=== PATIENT | female | born 1945 | race Caucasian/White ===

== ENCOUNTER 2017-02-22 20:07 | Emergency (ER) | payer MEDICARE, MEDICAID ==
[~2017-02-22] VITALS: Ht 160 cm; Wt 75.0 kg
[~2017-02-22 20:07] MED LIST: ARIP30TA PO; BENZ100C8 PO; CEPH-512 PO; CEPH500C PO; CITA20TA11 PO; CLOT15CR66 TD; DOXY100T2 PO; ERYT1OIN7 BOTH_EYES; FAMO20TA4 PO; FERR324T5 PO; FURO-128 PO; GABA-502 PO; HYDR-3797 PO; HYDR-4003 PO; METO25TA99 PO; MUPI22OI2 NASAL; NYST15PO3 TRANSDERM; OXYC1TAB24 PO; POTA20TA7 PO; ZOLP5TAB6 PO
[2017-02-22 20:39] VITALS: BP 154/83; PULSE 69; RESP 17; O2SAT 97
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
[2017-02-22] MEDS ORDERED: Triamcinolone 0.1% 30 Gm Cream TOPICAL ONE (23:45)
[2017-02-22] MEDS ORDERED: Triamcinolone 0.1% 30 Gm Cream TOPICAL SCH (23:45)
[2017-02-23 01:07] VITALS: BP 150/80; PULSE 70; RESP 16; O2SAT 98
[2017-02-23] MEDS ORDERED: Triamcinolone 0.1% 30 Gm Cream TOPICAL SCH (08:30)
== END 2017-02-23 01:08 | disposition home or self-care (01) ==
LOC: SED 20:07
DX: L28.0 Lichen simplex chronicus (principal); I11.0 Hypertensive heart disease with heart failure; E78.5 Hyperlipidemia, unspecified; F31.9 Bipolar disorder, unspecified; Z88.2 Allergy status to sulfonamides; Z88.5 Allergy status to narcotic agent; Z88.8 Allergy status to other drugs, medicaments and biological substances

== ENCOUNTER 2017-03-01 14:41 | Inpatient (IN) | payer MEDICARE, MEDICAID, OTHER ==
[~2017-03-01] VITALS: Ht 160 cm; Wt 71.5 kg
[2017-03-01 15:05] VITALS: BP 176/84; PULSE 86; RESP 20; O2SAT 97
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
[2017-03-01 15:51] LABS: BASOPHILS % (AUTO) 0.5 % (0-3); EOSINOPHILS % (AUTO) 2.8 % (0-5); MONOCYTES % (AUTO) 10.2 % (4-12); Mean Corpuscular Hemoglobin 31.3 pg (27.0-35.0); Mean Corpuscular Volume 97.4 fL (81-100); NEUTROPHILS % (AUTO) 66.4 % (40-74); Platelet Count 220 bil/L (150-400)
[2017-03-01 18:50] VITALS: BP 162/92; PULSE 84; RESP 15; O2SAT 96
[2017-03-01 20:40] LABS: APPEARANCE,URINE CLEAR (CLEAR,HAZY); COLOR,URINE YELLOW (YELLOW); OCCULT BLOOD,URINE NEGATIVE (NEGATIVE); UROBILINOGEN,URINE NORMAL (NORMAL)
[2017-03-02 02:57] VITALS: BP 180/81; PULSE 65; RESP 20; O2SAT 98
[2017-03-02 06:17] VITALS: BP 142/68; PULSE 62; RESP 16; O2SAT 98
[2017-03-02] MEDS ORDERED: KEN1C EXT (14:50)
--- NOTE | 2017-03-02 15:00 | NUR ---
Admission Admit completed. information completed to the best of patient's recollection. Med Rec completed, from pharmacy list and patient's recollection. Caleb Putnam in [place] confirmed recent Rx's of triamcinolone, citalopram, and Famotidine. Cephalexin 500mg QID filled on 02/17 for 7 day coarse. last Abilify filled was 02/2016 20mg tab to take 10mg BID, ferrous gluconate filled 11/2015, Ambien last filled 02/2016, and lisinopril 10mg last filled 02/2016. patient denies taking Abilify, lisinopril, and Ambien.
[2017-03-02] MEDS: Mupirocin 2% 22 Gm Ointment NASAL SCH (20:30)
[2017-03-02] MEDS ORDERED: NYSTATIN TRANSDERM SCH (20:30)
[2017-03-02] MEDS: hydrOXYzine Pamoate 25 mg Capsule PO PRN (21:07)
[2017-03-02] MEDS: Nystatin 100,000 Unit/Gm 15 Gm Powder TOPICAL SCH (21:08)
[2017-03-02] MEDS: Triamcinolone 0.1% 30 Gm Cream TOPICAL SCH (21:09)
--- NOTE | 2017-03-02 22:36 | NUR ---
NURS Note [id number] S "I have fleas in my blood. I didn't get them from my cats. I got them in senior living. I have a hundred and fifty cats and feed them oats and salmon." O Thought process, tangential and fleeting. Thought content, delusional and bizarre. Insight, poor. Pt has several small sores on legs, arms, torso, neck and face and reports that they are from fleas. Pt admits to picking at sores. Pt's lower legs are red and warm to touch. Currently being treated with clotrimazole, triamcinolone, and mupirocin ointments. Staff has requested that pt shower several times and pt refuses. Pt states that she prefers to bath in the sink. Pt has been requesting maday sandoval -- staff has declined request because of the bear's unhygienic conditions. A Pt is pleasant but requires direction and encouragement to engage in appropriate self care. P Continue with treatment plan. Encourage showering.
[2017-03-03] MEDS: oxyCODONE-Acetamin 5-325 mg Tablet PO PRN ×2 (00:15→09:21)
--- NOTE | 2017-03-03 05:39 | NUR ---
nursing, nights, 11-7 s- can i have some tylenol ? i'm yesy albarado's mother. o- has appeared to sleep after 2215. used the call light at midnight. received percocet at 0015. appeared to sleep after 0045. assessed q 15 minutes. a- no apparent distress. p- monitor behavior/emotional state, quality, times and amount of sleep, use and effect of medication. marbella
[2017-03-03] MEDS: Potassium Chloride 20 mEq SR Tablet PO SCH (08:51)
[2017-03-03] MEDS: Triamcinolone 0.1% 30 Gm Cream TOPICAL SCH ×2 (08:52→22:06)
[2017-03-03] MEDS: MeTOProlol XL 25 mg ER24 Tablet PO SCH ×2 (08:54→09:00)
[2017-03-03] MEDS: Nystatin 100,000 Unit/Gm 15 Gm Powder TOPICAL SCH ×2 (08:58→22:06)
[2017-03-03] MEDS: Mupirocin 2% 22 Gm Ointment NASAL SCH ×3 (09:20→20:30)
[2017-03-03 12:00] VITALS: BP 139/72; PULSE 79; RESP 15
--- NOTE | 2017-03-03 14:42 | HP ---
[address] [address] HISTORY AND PHYSICAL PATIENT: TOM DUENAS : 1945 MR#: [id number] ADMIT: 03/02/2017 JOB ID: [id number] IDENTIFICATION: The patient is a 71-year-old single white female, currently living alone and independently. 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 She states that she has over 100 cats in her neighborhood that she cares for. She moved from [place] at age [age] to [place] and has been in the [facility] for 24 years. REASON FOR ADMISSION: Please recall a welfare check. Client appeared disheveled, labile, tangential and gravely disabled. They brought her into the emergency department for evaluation and treatment. HISTORY OF PRESENT ILLNESS: Client presents today for evaluation and treatment of psychosis. I met with her for a 60 minute evaluation and reviewed course and records kept by [facility] as well as reviewed the case with the ED staff and Care Center staff. Client's main issue at this time is untreated psychosis. The condition is chronic and has been present for decades. At present it is of a moderate severity manifesting with symptoms of insomnia, severe distractibility, auditory hallucinations, talking to auditory hallucinations and paranoia. She is tending to have a lot of grandiose delusions as well believing that she will soon be an service unit operator oil well. I was unable to identify any specific stressors, although client did state that she has not been taking her medications or takes them only as she perceives she needs. She had been on Abilify, Celexa and gabapentin. Additionally, the client has congestive heart failure with chronic lower extremity edema. She has a difficult time getting around and this as well appears to be contributing to some of her difficulty with thought processing. PSYCHIATRIC REVIEW OF SYSTEMS: Was negative for depression, trauma or substance abuse. PHYSICAL REVIEW OF SYSTEMS: Constitution: Client feels tired. Cardiac: Client has lower extremity edema from congestive heart failure. Client denied respiratory, GI or genitourinary symptom complaints. MEDICATIONS: Client has not been on any medications but in the past has been on Abilify at 10 daily, Celexa 20 daily, and gabapentin 300 b.i.d. ALLERGIES: NICOTINE, SULFA, CODEINE. ILLNESSES: 1. Congestive heart failure. 2. Lower extremity edema. 3. Peripheral neuropathy. 4. Client has a history of respiratory failure requiring intubation in May of 2014. FAMILY MEDICAL HISTORY: Noncontributory. PAST PSYCHIATRIC HISTORY: Client denies any psychiatric problems or mental illness despite being on an antipsychotic or mood stabilizer and an antidepressant. She states she had been with her same doctor, Dr. Bernabe, in [place]. He had worked for [employer], now works for [employer]. She stated she has no known him for over four decades and that he knows her well. PSYCHOSOCIAL HISTORY: Client born in [place]. She reported her mother was frequently overwhelmed and she had to take care of the children but otherwise denies trauma. She has a 9th grade education and a year of cosmetology school. DRUG AND ALCOHOL USE: Client denies. LETHALITY: Client denies suicidal or homicidal ideation or previous attempts. RELATIONSHIP: for 23 years. Has three sons. . One of her sons lives on her property. GNOSTICISM: Client loves Yann and goes to a [employer] conf[employer]ianism. LEGAL HISTORY: Unknown. Client had an odd tail of being in [facility] for 28 days but cannot describe why. PHYSICAL EXAMINATION: Vital signs normal. I reviewed the H and P done in the ED and was essentially baseline for this patient. LABORATORIES: CBC, liver function, electrolytes normal. Thyroid normal. UA normal. MENTAL STATUS EXAMINATION: Client disheveled but with good eye contact. She appears frail and thin. Behavior was restless and energetic. Attitude was very positive and happy. Speech normal rate and rhythm. Mood euphoric. Affect congruent. High intensity. Thought process: Client has a difficult time relating a coherent history. She did not appear to be responding to internal stimuli. Her thought process was most significant for distractibility. Thought content significant for grandiose and paranoid delusions, but denies auditory hallucinations or suicidal ideation. Alert and oriented to person, place and date. Memory markedly impaired. Attention and concentration markedly impaired. Insight and judgment poor. Impulse control highly contained but has a difficult time handling impulses of anger. Reality testing is impaired. Competence to handle current stressors is currently being overwhelmed. IMPRESSION: The patient is a 71-year-old white female, who has been treated it sounds like for bipolar mood disorder and psychosis for several decades by a primary care physician, that she has felt very comfortable with. She has been medication noncompliant and has not taking any medication for several months. For the past six weeks, she reports poor sleep, and family and friends are noticing increasing distractibility and a decreased ability to take care of herself. When police arrived, they noted her apartment was extremely in disarray and that client was delusional, labile and tangential in her speech. DIAGNOSIS: AXIS I Psychosis unspecified. AXIS II Defer. AXIS III 1. Congestive heart failure. 2. Peripheral neuropathy. 3. Lower extremity edema. 4. History of respiratory failure with intubation May 2014. AXIS IV Unknown. AXIS V 35. PLAN: 1. Recommend client be admitted to our unit to be provided with high degree of safety through the structure and active adult engagement she receives here. 2. Will have her participate in one-to-one unit and group activities focused on improving reality based thinking as well as helping her come up with a safety plan and a medication management plan. 3. We will restart client on medications, gabapentin 300 twice a day, Celexa 20 daily, and Abilify 10 daily. 4. Will also restart metoprolol at 25 mg daily. 5. Client is on a 72 hour involuntary treatment hold. She will have time to talk to her work order sorting clerk in the morning and we will go to court tomorrow. 6. Anticipate 5-7 day stay.
[2017-03-03] MEDS: ARIPiprazole 10 mg Tablet PO SCH (14:49)
--- NOTE | 2017-03-03 15:19 | NUR ---
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 ...lived in [facility]...That's the way we do it at [facility]...rabbit steele.. we didn't wrap our presents. Obama made i so I couldn't see my son...The police came and got me from my home...my own home of 24 years... senior care...Want my clothes... want my maday bear. O: Pt appearance: Hair dyed blonde, pink streaks, bright lipstick applied with lots of smudges. Right hand fingers are red (lipstick?). Wearing slippers that look 2-3 sized too large. Behavior: Eating large amounts. Busy about the unit. non-stop pressured speech to whomever she can interact with , peers or staff. Conversation: Tangential. loose association. Disorganized. Meds: REfused Scheduled metoprolol. "Don't need it" A: Paranoid. Delusional. Anxious. Grandiose. Hypomanic. P: Continue to assess for need for prn and scheduled medication.
--- NOTE | 2017-03-03 17:58 | NUR ---
Environmental Management Specialist/Counselor: S: "Live and let live." O: Patient slept 7 hours last night as per staff. She denies S/I and H/I. She denies auditory and visual hallucinations. Depression is 0/10 and anxiety is 0/10. A: Patient is cooperative, pleasant, eutyhmic, limited insight, limited judgment. P: Follow the care plan, coordinate with out-patient providers. Addendum: 03/03/17 at 1803 by [facility] The above entry is not for this patient. S/O: Patient slept 8 hours last night per staff. She denies S/I and H/I. She also denies auditory and visual hallucinations. A: Patient is cooperative, restless, euphoric, distractible, grandiose, paranoid, delusional, poor insight, poor judgment. P: Follow care plan, coordinate out-patient providers.
--- NOTE | 2017-03-03 18:13 | NUR ---
[facility] Day Shift Pt maintained behavioral control throughout the shift. Pt affect appears bright, manic. Pt spends most of the shift resting in her room or interacting with peers in the dining room. Pt is pleasant and appropriate with staff and peers when active on the unit. Pt speech and thought content appear tangential, occasionally nonsensical. Pt observed using various unit amenities as "makeup." Pt did not attend community meeting or unit group activities throughout the shift. Pt attended all meals and ate approx 70% of all meals.
--- NOTE | 2017-03-03 23:21 | NUR ---
NURSING NOTE [id number] Mood: "nice" Affect: disorganized, delusional Behavior: at start of shift pt. was extremely unkempt and disheveled, showed this freelance writer and nursing home manager her makeup which was made of crystal light powder that she had smeared on her lips and in her hair and fingernails. Pt. was initially resistant to showering and insisted she keeps herself bathed regularly in the sink but eventually agreed to allow this freelance writer and nursing home manager to assist her in the shower. Pt. has been picking at various scabs all over her body and believes she has fleas, however, upon close inspection no bugs were noted. She continues to pick at her sores throughout the shift, insisting bugs are crawling out of the holes. Thought processes: delusional, disorganized, paranoid that she has bugs living inside of her and that a local supervisor coal handling is persecuting her and that a man in a convertible car has been stealing her underwear. Denies AH/VH/SI/HI.
[2017-03-04] MEDS: oxyCODONE-Acetamin 5-325 mg Tablet PO PRN ×2 (04:05→21:18)
--- NOTE | 2017-03-04 04:47 | NUR ---
nursing, nights, 11-7 s- i didn't make it. i need some new blankets. my legs hurt. where is my bear ? thank you. o- has appeared to sleep 2300-midnight, [id number]. received a percocet at 0400. is currently lying quietly in bed. assessed q 15 minutes. a- interrupted sleep, incontinent, uses call light for assistance, no apparent distress. p- monitor behavior/emotional state, quality, times and amount of sleep, use and effect of medication. marbella
[2017-03-04] MEDS: Triamcinolone 0.1% 30 Gm Cream TOPICAL SCH ×2 (08:17→21:15)
[2017-03-04] MEDS: Nystatin 100,000 Unit/Gm 15 Gm Powder TOPICAL SCH ×2 (08:19→21:13)
[2017-03-04] MEDS: MeTOProlol XL 25 mg ER24 Tablet PO SCH (08:20)
[2017-03-04] MEDS: Potassium Chloride 20 mEq SR Tablet PO SCH (08:20)
[2017-03-04] MEDS: ARIPiprazole 10 mg Tablet PO SCH (08:20)
[2017-03-04] MEDS: Mupirocin 2% 22 Gm Ointment NASAL SCH ×3 (08:28→20:30)
[2017-03-04 10:11] VITALS: BP 140/69; PULSE 67; RESP 18
--- NOTE | 2017-03-04 11:22 | NUR ---
Nursing Day Shift S: "No anxiety at all. I'm cool as a cucumber!" O: Patient denies anxiety, depression, harmful thoughts, and hallucinations. Smiling much of the time. Talkative on approach. Eating well at meals. Believes "I get a new heart every 20 years." Social with peers. A: Bright affect. Cooperative. P: CPOC. Monitor mood and behavior.
--- NOTE | 2017-03-04 13:59 | PCM.PNPSY ---
Subjective Date of Service March 04, 2017 Subjective I spent 30 minutes both reviewing treatment plan with clinical team, interviewing the patient and providing supportive/educational psychotherapy. I spent more than 50% of the time counseling the patient. I reviewed the treatment plan with the patient and discussed options available including the potential risks, benefits and side effects. Jaci reports that she has no trouble with thought organization or mood stability. She would like to go home today but was court ordered for an additional 4 days. Staff reports that she has been active and participating well in one-to-one unit and group activities. She slept 3 hours and although pleasant and cooperative is also quite delusional with both paranoid and grandiose delusions. Staff reports that she is hoarding food in her home. She has very poor judgment and insight. Her home was condemned and she believes that it is fine.. She denies medication side effects. Patient was able to identify her medications and what they were used to treat. Current Medications Current Medications Aripiprazole 10 mg DAILY PO Last administered on 03/04/17 08:20; Admin Dose 10 MG; Start 03/03/17 at 14:00 Citalopram Hydrobromide 20 mg DAILY PO Last administered on 03/04/17 08:20; Admin Dose 20 MG; Start 03/03/17 at 08:30 Clotrimazole 1 applic BID TOPICAL Last administered on 03/04/17 08:17; Admin Dose 1 APPLIC; Start 03/02/17 at 20:30 Famotidine 20 mg DAILY PRN PO Last administered on 03/03/17 09:21; Admin Dose 20 MG; Start 03/02/17 at 15:50 Ferrous Gluconate 324 mg BID PO Last administered on 03/04/17 08:20; Admin Dose 324 MG; Start 03/02/17 at 20:30 Gabapentin 300 mg BID PO Last administered on 03/04/17 08:20; Admin Dose 300 MG ; Start 03/02/17 at 20:30 Hydroxyzine Pamoate 25 mg Q6H PRN PO Last administered on 03/02/17 21:07; Admin Dose 25 MG; Start 03/02/17 at 15:50 Metoprolol Succinate 25 mg DAILY PO Last administered on 03/04/17 08:20; Admin Dose 25 MG; Start 03/03/17 at 08:30 Mupirocin 1 applic TID NASAL Last administered on 03/03/17 20:30; Admin Dose 1 APPLIC; Start 03/02/17 at 20:30 Nystatin 1 applic BID TOPICAL Last administered on 03/04/17 08:19; Admin Dose 1 APPLIC; Start 03/02/17 at 20:30 Oxycodone/ Acetaminophen 1 tab Q6H PRN PO Last administered on 03/04/17 04:05 ; Admin Dose 1 TAB; Start 03/02/17 at 15:50 Potassium Chloride 20 meq DAILY PO Last administered on 03/04/17 08:20; Admin Dose 20 MEQ; Start 03/03/17 at 08:30 Triamcinolone Acetonide 1 applic BID TOPICAL Last administered on 03/04/17 08: 17; Admin Dose 1 APPLIC; Start 03/02/17 at 20:30 Mental Status Exam Vital Signs Vital Signs Date Time Temp Pulse Resp B/P Pulse Ox O2 Delivery O2 Flow Rate FiO2 03/04/17 10:11 36.2 67 18 140/69 Appearance: Disheveled Attitude: Pleasant, Cooperative Behavior: Distractible Affect: Well Modulated/Appropriate Mood: Euphoric Thought Process/Associations: Tangential Speech Production: Abundant Speech Rate: Normal Speech Articulation: Normal Thought Content: Yazidism preoccupation, Obsessions/compulsions, Perseveration Danger to Self/Suicidal Ideati: None Danger to Others: None Delusions: Paranoid (Endorses), Grandiose Consciousness: Alert Orientation: Person, Place, Date, Situation Memory: Grossly Intact Estimate Intellectual Function: Average Basis for IQ estimate: Awareness current events Attention/Concentration & Cogn: Impaired Cognitive Testing Method: Abstract Reasoning during interview, Proverb interpretation, Serial computations, Spelling forward & backward Insight: Limited Judgement: Limited Result Diagram: 03/01/17 1539 03/01/17 1539 Mental Health Plan The patient is a 71-year-old white female, who has been treated it sounds like for bipolar mood disorder and psychosis for several decades by a primary care physician, that she has felt very comfortable with. She has been medication noncompliant and has not taking any medication for several months. For the past six weeks, she reports poor sleep, and family and friends are noticing increasing distractibility and a decreased ability to take care of herself. When police arrived, they noted her apartment was extremely in disarray and that client was delusional, labile and tangential in her speech. Today she is bright and pleasant but continues to have delusional thought with both paranoid and grandiose delusions. Staff reports that she is hoarding food in her home. She has very poor judgment and insight. Her home was condemned and she believes that it is fine.. [place] AXIS I Psychosis unspecified. AXIS II Defer. AXIS III 1. Congestive heart failure. 2. Peripheral neuropathy. 3. Lower extremity edema. 4. History of respiratory failure with intubation May 2014. AXIS IV Unknown. AXIS V 35. Treatments Patient is being provided with a high degree of safety through the structure and active adult engagement. We will focus on developing improved coping skills and identifying stressors that may have led to current episode. We will attempt to: Integrate into therapeutic groups, milieu and individual therapy. Maintain in a closely monitored and structured unit Provide low-stimulation environment Obtain collateral data to assist in treatment planning Assess degree of lability of affect and impulse control Complete safety plan Decrease frequency of relapse and need for re-hospitalization Denies thoughts of harm to self and/or others Establish a consistent sleep pattern Medication effective in stabilization of mood and/or thought process Reduce the risk of imminent harm to self and/or others by providing a safe environment Tolerates medication without side effects Patient will be on the following psychiatric medications: gabapentin 300 twice a day, Celexa 20 daily Abilify 10 daily metoprolol 25 mg daily. legal status Patient is on a 72 hour involuntary treatment hold. Postponed until next Tuesday Patient will be given the opportunity to talk to her leach cell operator and the construction project coordinator Disposition: Patient home is condemned. Will need help with housing. Jose Davies MD March 04, 2017 13:59
--- NOTE | 2017-03-04 19:52 | NUR ---
Observations 0900 to 2130 Pt affect and mood was disorganized, scattered, bright and friendly. Pt speech and eye contact was good. Pt attended meals in D.R. and ate approximately 75% of his meals. Pt ate snack. Pt did not attended group or unit activities. Pt was social with staff and select peers. Pt has been pleasant, polite and cooperative. Pt took a nap in the afternoon. Pt was observed every 15 minutes throughout the shift as ordered.
[2017-03-04] MEDS: hydrOXYzine Pamoate 25 mg Capsule PO PRN (21:19)
[2017-03-05] MEDS: oxyCODONE-Acetamin 5-325 mg Tablet PO PRN (02:35)
[2017-03-05] MEDS: hydrOXYzine Pamoate 25 mg Capsule PO PRN (02:35)
--- NOTE | 2017-03-05 05:27 | NUR ---
Pt sitting at table talking with female peers at start of shift. Pt pleasant and supportive of peers. Pt manic with pressured speech and racing thoughts, focused on recounting childhood memories and over inclusive of details. Pt insisting she acquired aphid nits in correction which are biting her back and they are in my blood stream. Assisted pt. with applying triamcinolone cream to her back. No insect bites noted however there are a few small open areas on her back where she had scratched off scabs. Pt lower extremities tight and red, +1 edema. Pt received Percocet 5/325 for pain lower back pain /10 and Vistaril 25 mg for itching. Pt did not get bactroban ointment for nares before she went to sleep as it had not come up from pharmacy. Pt woke up at 0245 requesting a repeat of Percocet and Vistaril. Dozed off in dining room and remained asleep there until 0500 when she woke up for the day.
[2017-03-05] MEDS: Mupirocin 2% 22 Gm Ointment NASAL SCH ×3 (08:30→21:45)
[2017-03-05] MEDS: Nystatin 100,000 Unit/Gm 15 Gm Powder TOPICAL SCH ×2 (08:30→21:44)
[2017-03-05] MEDS: MeTOProlol XL 25 mg ER24 Tablet PO SCH (10:12)
[2017-03-05] MEDS: ARIPiprazole 10 mg Tablet PO SCH (10:12)
[2017-03-05] MEDS: Potassium Chloride 20 mEq SR Tablet PO SCH (10:12)
[2017-03-05 11:28] VITALS: BP 140/62; PULSE 54; RESP 16
[2017-03-05] MEDS: Triamcinolone 0.1% 30 Gm Cream TOPICAL SCH ×2 (11:28→21:44)
--- NOTE | 2017-03-05 12:10 | PCM.PNPSY ---
Subjective Date of Service March 05, 2017 Subjective I spent 30 minutes both reviewing treatment plan with clinical team, interviewing the patient and providing supportive/educational psychotherapy. I spent more than 50% of the time counseling the patient. She spoke about her son who I treated here on the unit, she spoke about him very affectionately. Jaci reports that she has been struggling with afids and fleas. She stated that they are in her bloodstream. She stated every morning she needs to brush her teeth and scrape her tongue because they are full of afids. She would like to go home today but was court was postponed by her district attorney for an additional 4 days. Staff reports that she has been active and participating well in one-to -one unit and group activities. She slept 4 hours and although pleasant and cooperative is also quite delusional with both paranoid and grandiose delusions. Staff reports that she is hoarding food in her home. She has very poor judgment and insight. Her home was condemned and she believes that it is fine.. She denies medication side effects. Patient was able to identify her medications and what they were used to treat. Current Medications Current Medications Aripiprazole 10 mg DAILY PO Last administered on 03/05/17t 10:12; Admin Dose 10 MG; Start 03/03/17 at 14:00 Mental Status Exam Vital Signs Vital Signs Date Time Temp Pulse Resp B/P Pulse Ox O2 Delivery O2 Flow Rate FiO2 03/05/17 11:28 36.5 54 16 140/62 Appearance: Disheveled Attitude: Pleasant, Cooperative Behavior: Distractible Affect: Well Modulated/Appropriate Mood: Euphoric Thought Process/Associations: Tangential Speech Production: Abundant Speech Rate: Normal Speech Articulation: Normal Thought Content: Lutheran preoccupation, Obsessions/compulsions, Perseveration Danger to Self/Suicidal Ideati: None Danger to Others: None Delusions: Paranoid (Endorses), Grandiose Consciousness: Alert Orientation: Person, Place, Date, Situation Memory: Grossly Intact Estimate Intellectual Function: Average Basis for IQ estimate: Awareness current events Attention/Concentration & Cogn: Impaired Cognitive Testing Method: Abstract Reasoning during interview, Proverb interpretation, Serial computations, Spelling forward & backward Insight: Limited Judgement: Limited Result Diagram: 03/01/17 1539 03/01/17 1539 Mental Health Plan The patient is a 71-year-old white female, who has been treated it sounds like for bipolar mood disorder and psychosis for several decades by a primary care physician, that she has felt very comfortable with. She has been medication noncompliant and has not taking any medication for several months. For the past six weeks, she reports poor sleep, and family and friends are noticing increasing distractibility and a decreased ability to take care of herself. When police arrived, they noted her apartment was extremely in disarray and that client was delusional, labile and tangential in her speech. Today she is bright and pleasant but continues to have delusional thought with both paranoid and grandiose delusions. Jaci reports that she has been struggling with afids and fleas. She stated that they are in her bloodstream. She stated every morning she needs to brush her teeth and scrape her tongue because they are full of afids. She would like to go home today but was court was postponed by her district attorney for an additional 4 days. Staff reports that she has been active and participating well in one-to-one unit and group activities. She slept 4 hours and although pleasant and cooperative is also quite delusional with both paranoid and grandiose delusions. Staff reports that she is hoarding food in her home. She has very poor judgment and insight. Her home was condemned and she believes that the house is fine. [facility] [place] AXIS I Psychosis unspecified. AXIS II Defer. AXIS III 1. Congestive heart failure. 2. Peripheral neuropathy. 3. Lower extremity edema. 4. History of respiratory failure with intubation May 2014. AXIS IV Unknown. AXIS V 35. Treatments Patient is being provided with a high degree of safety through the structure and active adult engagement. We will focus on developing improved coping skills and identifying stressors that may have led to current episode. We will attempt to: Integrate into therapeutic groups, milieu and individual therapy. Maintain in a closely monitored and structured unit Provide low-stimulation environment Obtain collateral data to assist in treatment planning Assess degree of lability of affect and impulse control Complete safety plan Decrease frequency of relapse and need for re-hospitalization Denies thoughts of harm to self and/or others Establish a consistent sleep pattern Medication effective in stabilization of mood and/or thought process Reduce the risk of imminent harm to self and/or others by providing a safe environment Tolerates medication without side effects Patient will be on the following psychiatric medications: gabapentin 300 twice a day, Celexa 20 daily Abilify 10 daily metoprolol 25 mg daily. legal status Patient is on a 72 hour involuntary treatment hold. Postponed until next Tuesday Patient will be given the opportunity to talk to her janitorial supervisor and the vacuum extractor operator Disposition: Patient home is condemned. Will need help with housing. Jose Davies MD March 05, 2017 12:10
--- NOTE | 2017-03-05 15:03 | NUR ---
Nursing Dayshift: S: "Can you stop by my house on the way home and pick a bunch of roses and bring them back here?" O: Patient has been smiling and cheerful much of the shift. Good appetite at meals. Social with peers. Med compliant. Attending group activities. A: Bright and cheerful attitude. Talkative. P: CPOC. Monitor mood and behavior.
--- NOTE | 2017-03-05 16:11 | NUR ---
D- Patient did not overtly attend to any ADLs this shift. She appears disheveled. Patient ate most of her meals in the dining room. She attended most of the structured groups and social activities this shift. A- Patient has been social and supportive of peers on the unit. She appears to have some poor boundaries at times, physically touching people, advocating inappropriately, loudly complimenting or critiquing peers within earshot. Patient appears hard of hearing and reports having poor eyesight and uses this excuse to selectively engage with peers and staff. Patient has not reported and thought disturbances and reports being unable to converse regarding any suicidal thinking or any details of her cognition due to her hearing. P- Continue current treatment plan.
[2017-03-06] MEDS: oxyCODONE-Acetamin 5-325 mg Tablet PO PRN ×2 (00:29→09:52)
[2017-03-06] MEDS: hydrOXYzine Pamoate 25 mg Capsule PO PRN ×2 (00:31→21:20)
--- NOTE | 2017-03-06 05:11 | NUR ---
nursing, nights, 11-7 s- my back hurts. it won't do anything without the other pill. i need some protein. o- awake at the start of the shift. asked for and received a snack, percocet and 25 mg of vistaril at 0030 with good effect. has appeared to sleep after 0200 to 0500 and is currently socializing in the dinning room. assessed q 15 minutes. a- inadequate sleep, no apparent distress. p- monitor behavior/emotional state, quality, times and amount of sleep, use and effect of medication. marbella
[2017-03-06] MEDS: ARIPiprazole 10 mg Tablet PO SCH (09:24)
[2017-03-06] MEDS: MeTOProlol XL 25 mg ER24 Tablet PO SCH (09:25)
[2017-03-06] MEDS: Potassium Chloride 20 mEq SR Tablet PO SCH (09:25)
[2017-03-06] MEDS: Triamcinolone 0.1% 30 Gm Cream TOPICAL SCH ×2 (09:39→21:19)
[2017-03-06] MEDS: Mupirocin 2% 22 Gm Ointment NASAL SCH ×3 (09:40→21:19)
[2017-03-06] MEDS: Nystatin 100,000 Unit/Gm 15 Gm Powder TOPICAL SCH ×2 (10:36→21:20)
[2017-03-06 11:30] VITALS: BP 139/68; PULSE 48; PULSE 52; RESP 19
[2017-03-06 12:15] VITALS: BP 147/76; PULSE 54
--- NOTE | 2017-03-06 17:13 | NUR ---
NURS Note Day Orientation: Oriented to person, place, and time. Mood: Fluctuates between euphoric and frustrated. Affect: Well-modulated. Thought Process/Content: "I have one hundred and fifty cats and I am selling them for $1500 a piece when I get out of here." Delusional, bizarre/grandiose. Poor insight as evidenced by pt insisting that staff not remove day old partially eaten food from pt room. Behavior: Pt spent much of shift between pt rm and common areas. Pt has been hoarding food, cups, and other items. Pt has not showered since admit and resists staff request to do so stating, I am perfectly clean, I bathe head to toe in the sink. Pt continues to apply peanut butter to wounds and states it helps them heal. PRNs/NURS: Low heart rate at 1130 (HR: 48; BP: 139/68). Reassessed HR at 1200 (HR: 54; BP: 147/76) and at 1700 (HR: 61; BP: 163/77). Pt has expressed severe back and lower limb pain but refuses to take PRN Percocet because it makes me pee. Dr. Davies has put in orders for PRN ibuprofen 600 mg. PO. Cleared out full garbage bag of food, containers, and other items from room. Pt yelled at ad copy writer to "stay out of my room."
[2017-03-06 17:29] VITALS: BP 163/77; PULSE 61; RESP 16
--- NOTE | 2017-03-06 17:50 | PCM.PNPSY ---
Subjective Date of Service March 06, 2017 Subjective The patient reports that the [facility] "wants my home for a book and release" facility for the [facility]. She states they are trying to buy it at $100, 000 and it is worth several million. She also continues to report having " fleas and white aphids" in her bloodstream. 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 The patient showed a few areas of skin where she had excoriated with resulting scabbing. She denied side effects to medications. Sleep: 3.25 hours Appetite: She reports needing multiple meals due to diverticulosis Suicidal and homicidal ideation: Denies Auditory hallucinations: Denies Visual hallucinations: Denies Other Psychotic Symptoms: Multiple as above Anxiety: Denies Depression: Denies Mental Status Exam Vital Signs Vital Signs Date Time Temp Pulse Resp B/P Pulse Ox O2 Delivery O2 Flow Rate FiO2 03/06/17 17:29 36.2 61 16 163/77 03/06/17 12:15 54 147/76 03/06/17 11:30 36.0 52 19 139/68 03/06/17 11:30 36.0 48 139/68 Appearance: Disheveled Attitude: Pleasant, Cooperative Behavior: Distractible Affect: Well Modulated/Appropriate Mood: Euphoric Thought Process/Associations: Tangential Speech Production: Abundant Speech Rate: Normal Speech Articulation: Normal Thought Content: Jew preoccupation, Obsessions/compulsions, Perseveration Danger to Self/Suicidal Ideati: None Danger to Others: None Delusions: Paranoid (Endorses), Grandiose Hallucinations: Auditory (Denies), Visual (Denies) Consciousness: Alert Orientation: Person, Place, Date, Situation Memory: Grossly Intact Estimate Intellectual Function: Average Basis for IQ estimate: Awareness current events Attention/Concentration & Cogn: Impaired Cognitive Testing Method: Abstract Reasoning during interview, Proverb interpretation, Serial computations, Spelling forward & backward Insight: Limited Judgement: Limited Result Diagram: 03/01/17 1539 03/01/17 1539 Mental Health Plan The patient is a 71-year-old white female, who has been treated for bipolar mood disorder and psychosis for several decades by her primary care physician. She has been medication noncompliant and has not taking any medication for several months. For the past six weeks, she has been experiencing poor sleep, and family and friends are noticing increasing distractibility and a decreased ability to take care of herself. When police arrived, they noted her apartment was extremely in disarray and that client was delusional, labile and tangential in her speech. The patient has been bright and pleasant but continues to be delusional particularly regarding insects in her blood. The patient has also been noted to be hoarding food in her room. Her home is reportedly been condemned and the patient has little insight into its current state. [place] AXIS I Psychosis unspecified Bipolar disorder by history AXIS II Defer. AXIS III 1. Congestive heart failure. 2. Peripheral neuropathy. 3. Lower extremity edema. 4. History of respiratory failure with intubation May 2014. AXIS IV Unknown. AXIS V 35. Medications Gabapentin 300 twice a day, Celexa 20 daily Abilify 10 daily Metoprolol 25 mg daily. Treatments 1. The patient is admitted to the inpatient unit and will be provided a safe and secure environment. 2. The patient is denying current active suicidality and is not in need of a one-to-one at this time. He is agreeing to notify us should he have any acute suicidal or homicidal thoughts. 3. The patient is encouraged to participate with group and milieu activities. 4. The patient will be seen by the treatment team on a daily basis to assess symptoms, side effects and response to treatment. 5. Consider increasing aripiprazole if no further improvement. 6. Will need to obtain outside records for the potential use of mood stabilizer. 7. Ibuprofen 600 mg 3 times daily as needed for pain 8. Anticipated length of stay is 10-14 days. Tuan Barragan MD March 06, 2017 17:49 gabapentin 300 twice a day, Celexa 20 daily Abilify 10 daily metoprolol 25 mg daily. legal status Patient is on a 72 hour involuntary treatment hold. Postponed until next Tuesday Patient will be given the opportunity to talk to her colors custodian and the jewel inspector Disposition: Patient home is condemned. Will need help with housing. Tuan Barragan MD March 06, 2017 17:49
--- NOTE | 2017-03-06 18:30 | NUR ---
Observations [id number] Pt was awake watching TV upon start of shift. Pt has multiple requests, pressing her call light to ask staff for things. Pt refused to take a shower, stating that she didn't want to get her hair wet or mess up her makeup. Pt did change her clothes. She attended all meals, eating by the TV for each meal eating 100%. She shared numerous stories with peers regarding spider monkeys, and owning 150+ cats that she can sell for $1500 a piece. Pt did not attend groups. She watched TV, falling asleep by the TV. Pt was observed every 15 minutes of shift as directed.
[2017-03-07] MEDS: oxyCODONE-Acetamin 5-325 mg Tablet PO PRN (04:23)
--- NOTE | 2017-03-07 05:39 | NUR ---
Nursing Note 7pm to 7am Roll Grinder Pt visible in common area, socializing with peers. Pt still hoarding food in her room. Hamburger found under her pillow. She is leaving her garbage strewn around the unit. She becomes easily angered by redirection or requests by staff to keep food out of her room. She is disheveled and still refuses to shower. She remains delusional with poor insight and judgement. Pt received vistaril with HS meds and went to bed at approx. 2130 and slept until 0430 when she woke up requesting Percocet for pain. Monitor with q 15 minute face checks for safety, location and accountability.
[2017-03-07 08:30] VITALS: BP 166/72; PULSE 54; RESP 12
[2017-03-07] MEDS: MeTOProlol XL 25 mg ER24 Tablet PO SCH (08:30)
[2017-03-07] MEDS: Triamcinolone 0.1% 30 Gm Cream TOPICAL SCH ×2 (08:30→20:32)
[2017-03-07] MEDS: Nystatin 100,000 Unit/Gm 15 Gm Powder TOPICAL SCH ×2 (08:30→20:32)
[2017-03-07] MEDS: Mupirocin 2% 22 Gm Ointment NASAL SCH ×3 (08:30→20:31)
[2017-03-07] MEDS: ARIPiprazole 10 mg Tablet PO SCH (09:41)
[2017-03-07] MEDS: Potassium Chloride 20 mEq SR Tablet PO SCH (09:42)
--- NOTE | 2017-03-07 17:43 | NUR ---
Nursing: Day shift: 699 to 1899 S: I have to get my house in order. I am going to be discharged Tuesday. The doctor told me. They took ____ from me. O: Jaci has been out on the open unit most of the shift. She is coloring, eating snacks or meals, and occasionally interacting with peers. She has good eye contact. Dress and make up are colorful and dramatic with red streaked hair, camouflage slippers and striped socks. Making calls from here to arrange for having a fence around her house and getting electrical work done. Lumber Sticker told not to use the phone to arrange these home improvements until after discharge. Pt acknowledged that she would go to court tomorrow but also believes she will be discharged. Speech is somewhat pressured and when she engages listener, she keeps talking. Takes meds as scheduled. No request for PRN meds. A: Hoarding food and other items. Delusional. Paranoid. P: Continue to assess for effectiveness of scheduled meds. Addendum: 03/07/17 at 1809 by JUAN ANTONIO MAHMOOD RN Amended: Links added.
--- NOTE | 2017-03-07 17:50 | NUR ---
Observations [id number] Pt was asleep upon start of shift. She spent much of the day in the dining area, visiting with peers and sleeping. She is very focused on the idea that someone on the unit is stealing items out of her room, writing threatening notes and leaving them in her room. Staff have taken food items out of her room and she has been asked to not take food to her room. Pt did not attend group, but did come to Community Meeting. She believes that she will be leaving tomorrow to go home to her 125 radha cats and 450 sugar bushes. Pt attended all meals, eating 100%. She was observed every 15 minutes of shift as directed.
--- NOTE | 2017-03-07 21:39 | PCM.PNPSY ---
Subjective Date of Service March 07, 2017 Subjective The patient continues to report having "fleas and white aphids" in her bloodstream, but reports not having seen them for several days. She reported that she was pleased that family members had brought in socks. Discussed increasing aripiprazole and patient was agreeable. She denied side effects to medications. Sleep: 3.5 hours Appetite: She reports needing multiple meals due to diverticulosis Suicidal and homicidal ideation: Denies Auditory hallucinations: Denies Visual hallucinations: Denies Other Psychotic Symptoms: Multiple as above Anxiety: Denies Depression: Denies Current Medications Current Medications Ibuprofen 600 mg TID PRN PO Last administered on 03/07/17t 17:57; Admin Dose 600 MG; Start 03/06/17 at 15:10 Mental Status Exam Appearance: Unkept (Patient reports had put raspberry jam (in stripes) in hair. ) Attitude: Pleasant, Cooperative Behavior: Distractible Affect: Well Modulated/Appropriate Mood: Euphoric Thought Process/Associations: Tangential Speech Production: Abundant Speech Rate: Normal Speech Articulation: Normal Thought Content: Advent preoccupation, Obsessions/compulsions, Perseveration Danger to Self/Suicidal Ideati: None Danger to Others: None Delusions: Paranoid (Endorses), Grandiose Hallucinations: Auditory (Denies), Visual (Denies) Consciousness: Alert Orientation: Person, Place, Date, Situation Memory: Grossly Intact Estimate Intellectual Function: Average Basis for IQ estimate: Awareness current events Attention/Concentration & Cogn: Impaired Insight: Limited Judgement: Limited Result Diagram: 03/01/17 1539 03/01/17 1539 Mental Health Plan The patient is a 71-year-old white female, who has been treated for bipolar disorder and psychosis for several decades by her primary care physician. She has been medication noncompliant and has not been taking any medication for several months. For the past six weeks, she has been experiencing poor sleep, and family and friends are noticing increasing distractibility and a decreased ability to take care of herself. When police arrived, they noted her home was in severe disarray and can no longer be inhabited. The patient was noted to be delusional, labile and tangential in her speech. On the unit, the patient has been bright and pleasant but continues to be delusional particularly regarding insects in her blood. The patient has also been noted to be hoarding food in her room. Her home has been condemned and the patient has little insight into its current state. She is agreeable to increasing her medication. [place] AXIS I Psychosis unspecified Bipolar disorder by history AXIS II Defer. AXIS III 1. Congestive heart failure. 2. Peripheral neuropathy. 3. Lower extremity edema. 4. History of respiratory failure with intubation May 2014. AXIS IV Unknown. AXIS V 35. Medications Gabapentin 300 twice a day, Celexa 20 daily Abilify 10 daily Metoprolol 25 mg daily. Treatments 1. The patient is admitted to the inpatient unit and will be provided a safe and secure environment. 2. The patient is denying current active suicidality and is not in need of a one-to-one at this time. He is agreeing to notify us should he have any acute suicidal or homicidal thoughts. 3. The patient is encouraged to participate with group and milieu activities. 4. The patient will be seen by the treatment team on a daily basis to assess symptoms, side effects and response to treatment. 5. Increase aripiprazole to 20mg daily. 6. Will need to obtain outside records for the potential use of mood stabilizer. 7. Ibuprofen 600 mg 3 times daily as needed for pain 8. Anticipated length of stay is 10-14 days. Tuan Barragan MD March 07, 2017 21:39
[2017-03-08] MEDS: oxyCODONE-Acetamin 5-325 mg Tablet PO PRN (00:54)
--- NOTE | 2017-03-08 06:07 | NUR ---
Nursing Noc Pt presents with pressured tangential speech. Frequent demands and requests made. She was pleasant until limits are set with her and she becomes quickly agitated stating she is "going to the supreme court and you will all lose your jobs". Took scheduled medications. She slept for a brief time in the late evening and awoke c/o leg cramps. She was provided warm packs and offered pain medication which she refused stating "No. It is a water pill. It makes me pee. I don't want it." Poor sleep of 3.5 hours.
[2017-03-08] MEDS: Triamcinolone 0.1% 30 Gm Cream TOPICAL SCH ×3 (08:30→21:04)
[2017-03-08] MEDS: Nystatin 100,000 Unit/Gm 15 Gm Powder TOPICAL SCH ×3 (08:30→21:14)
[2017-03-08] MEDS: MeTOProlol XL 25 mg ER24 Tablet PO SCH (08:30)
[2017-03-08] MEDS: ARIPiprazole 10 mg Tablet PO SCH (09:05)
[2017-03-08] MEDS: Potassium Chloride 20 mEq SR Tablet PO SCH (09:06)
[2017-03-08] MEDS: Mupirocin 2% 22 Gm Ointment NASAL SCH ×3 (09:06→21:04)
--- NOTE | 2017-03-08 13:45 | PCM.PNPSY ---
Subjective Date of Service March 08, 2017 Subjective The patient reported that she had placed raspberry Crystal light in her hair and stripes. She reported that she was "basically well with my antibiotics... I am still passing white aphids in my stool." The patient believes that she can return home but discussed with her that her home has been condemned. She believes that there is a group home house nearby where she might be able to live. The patient requests a B12 injection and reports the need for chronic treatment. She denies racing thoughts. She stated that staff will not give her a snack in the middle of night for her "diverticulosis." We discussed using Metamucil in the middle of the night to help with fiber and fullness. Sleep: 3.5 hours Appetite: "good" Suicidal and homicidal ideation: denies Auditory hallucinations: Denies Visual hallucinations: Denies Other Psychotic Symptoms: as above Anxiety: 0/10 Depression: 0/10 Current Medications Current Medications Aripiprazole 20 mg DAILY PO Last administered on 03/08/17 09:05; Admin Dose 20 MG; Start 03/08/17 at 08:30 Ibuprofen 600 mg TID PRN PO Last administered on 03/08/17 03:51; Admin Dose 600 MG; Start 03/06/17 at 15:10 Mental Status Exam Appearance: Unkept (Patient reports had put raspberry crystal light (in stripes ) in hair.) Attitude: Pleasant, Cooperative Behavior: Distractible Affect: Well Modulated/Appropriate Mood: Euphoric Thought Process/Associations: Tangential Speech Production: Abundant Speech Rate: Normal Speech Articulation: Normal Thought Content: Druze preoccupation, Obsessions/compulsions, Perseveration Danger to Self/Suicidal Ideati: None Danger to Others: None Delusions: Paranoid (Endorses), Grandiose Hallucinations: Auditory (Denies), Visual (Denies) Consciousness: Alert Orientation: Person, Place, Date, Situation Memory: Grossly Intact Estimate Intellectual Function: Average Basis for IQ estimate: Awareness current events Attention/Concentration & Cogn: Impaired Insight: Limited Judgement: Limited Mental Health Plan The patient is a 71-year-old white female, who has been treated for bipolar disorder and psychosis for several decades by her primary care physician. She has been medication noncompliant and has not been taking any medication for several months. For the past six weeks, she has been experiencing poor sleep, and family and friends are noticing increasing distractibility and a decreased ability to take care of herself. When police arrived, they noted her home was in severe disarray and can no longer be inhabited. The patient was noted to be delusional, labile and tangential in her speech. On the unit, the patient has been bright and pleasant but continues to be delusional particularly regarding insects in her blood. The patient has also been noted to be hoarding food in her room. Her home has been condemned and the patient has little insight into its current state. She was willing to consider living somewhere else but still thought they took pictures "of only the bad rooms." Patient may benefit from nocturnal Metamucil to aid in abdominal discomfort and provide some fullness. [place] AXIS I Psychosis unspecified Bipolar disorder by history AXIS II Defer. AXIS III 1. Congestive heart failure. 2. Peripheral neuropathy. 3. Lower extremity edema. 4. History of respiratory failure with intubation May 2014. AXIS IV Unknown. AXIS V 35. Medications Gabapentin 300 twice a day, Celexa 20 daily Abilify 20 daily Metoprolol 25 mg daily. Treatments 1. The patient is admitted to the inpatient unit and will be provided a safe and secure environment. 2. The patient is denying current active suicidality and is not in need of a one-to-one at this time. He is agreeing to notify us should he have any acute suicidal or homicidal thoughts. 3. The patient is encouraged to participate with group and milieu activities. 4. The patient will be seen by the treatment team on a daily basis to assess symptoms, side effects and response to treatment. 5. Increase aripiprazole to 20mg daily. 6. Will need to obtain outside records for the potential use of mood stabilizer. 7. Metamucil nightly as needed for "diverticulosis" 8. Anticipated length of stay is 10-14 days. Tuan Barragan MD March 08, 2017 13:45
[2017-03-08 14:00] VITALS: BP 136/69; PULSE 58; RESP 16
--- NOTE | 2017-03-08 17:51 | NUR ---
Nursing : Day shift: Jaci was up acting busy around the dining room at 0700. She requested investigative writer to check her Blood glucose level as she observed this hugo done for a peer. "My blood sugar is low". When staff did not act on pt request, she became upset. Later when investigative writer attempted to assess skin and apply ordered creams, she refused saying "don't touch me. You would not help me earlier. Go away." Also accused investigative writer of not giving her a snack at 0200. Would not accept information that investigative writer was not here at 0200. Pt attended court, agreed to [employer] stating that she needed time to get her home ready to return to and voicing her complaint about no food in nighttime to court of appeals judge. Pt did not shower today. Refused. P: Continue to attempt to assist pt with hygiene as allowed.
--- NOTE | 2017-03-08 19:08 | NUR ---
Obs Dayshift Pt has been disorganized, hoarding items and food, falling asleep often in the chair in the TV area. Pt is not participating in groups very well, tangential, disorganized. Pt is rambling often to anyone around her when awake. Pt needs some redirection from staff often regarding placing food from her meal trays all over the unit, taking things in her room, leaving her belongings all over the milieu. Pt has very poor ADL's, Good meals
[2017-03-09] MEDS: oxyCODONE-Acetamin 5-325 mg Tablet PO PRN ×2 (00:31→19:55)
--- NOTE | 2017-03-09 05:42 | NUR ---
Nursing Noc "I need a turkey sandwich, and I want it in five minutes. Pt remains tangential and disorganized. Noted difficulty remaining asleep. Pt able to sleep a total of five hours broken sleep this shift. s/o- has appeared to sleep after 2230 during q 15 minute assessments. a- no apparent distress. p- monitor behavior/emotional state, quality, times and amount of sleep, use and effect of medication.
[2017-03-09] MEDS: Potassium Chloride 20 mEq SR Tablet PO SCH (09:13)
[2017-03-09] MEDS: ARIPiprazole 10 mg Tablet PO SCH (09:13)
[2017-03-09] MEDS: MeTOProlol XL 25 mg ER24 Tablet PO SCH (09:13)
[2017-03-09] MEDS: Mupirocin 2% 22 Gm Ointment NASAL SCH ×3 (09:14→21:44)
[2017-03-09] MEDS: Nystatin 100,000 Unit/Gm 15 Gm Powder TOPICAL SCH ×2 (09:14→21:44)
[2017-03-09] MEDS: Triamcinolone 0.1% 30 Gm Cream TOPICAL SCH ×2 (09:14→21:44)
[2017-03-09 13:16] VITALS: BP 165/81; PULSE 60; RESP 16
--- NOTE | 2017-03-09 14:08 | NUR ---
Nursing Dayshift: S: "Can I have your pink pony tail band?" O: Patient requesting 2 pony tail bands for tomorrow. Has showered today. Requesting laundry to be done. Social with peers. Bright and cheery on approach. Med compliant. Very good appetite at meals. A: Expansive. Animated. P: CPOC. Monitor mood and behavior.
[2017-03-09 16:01] LABS: EOSINOPHILS % (AUTO) 4.6 % (0-5); MONOCYTES % (AUTO) 8.7 % (4-12); Mean Corpuscular Hemoglobin 31.8 pg (27.0-35.0); Mean Corpuscular Volume 96.1 fL (81-100); NEUTROPHILS % (AUTO) 62.8 % (40-74); Platelet Count 196 bil/L (150-400)
[2017-03-09] MEDS ORDERED: MULT-321 PO (16:29)
[2017-03-09] MEDS ORDERED: LISI10TA PO (16:29)
[2017-03-09] MEDS ORDERED: FURO40TA4 PO (16:29)
[2017-03-09 16:35] LABS: APPEARANCE,URINE CLEAR (CLEAR,HAZY); COLOR,URINE STRAW (YELLOW); OCCULT BLOOD,URINE NEGATIVE (NEGATIVE); PH,URINE 6.5 (5.0-8.0); UROBILINOGEN,URINE NORMAL (NORMAL)
--- NOTE | 2017-03-09 18:08 | NUR ---
[facility] Day Shift Pt affect and behavior appears unchanged from previous shifts. Pt maintained behavioral control throughout the shift. Pt affect appears bright, manic. Pt spends most of the shift resting in her room or interacting with peers in the dining room. Pt is pleasant and appropriate with staff and peers when active on the unit. Pt speech and thought content appear tangential, occasionally nonsensical. Pt observed using various unit amenities as "makeup." Pt attended community meeting in the AM, but did not participate in group activities. Pt attended all meals and ate approx 70% of all meals.
[2017-03-09] MEDS: hydrOXYzine Pamoate 25 mg Capsule PO PRN (19:50)
--- NOTE | 2017-03-09 20:08 | NUR ---
Boring Machine Set Up Operator Jig/Counselor: S: "I am sleepy today." O: Patient slept 5+ hours last night as per staff. She denies S/I and H/I. She denies auditory and visual hallucinations. Depression is 0/10 and anxiety is 0/10. A: Patient is cooperative, euphoric, tangential, religiously preoccupied, paranoid, grandiose, limited insight, limited judgment.. P: Follow the care plan, coordinate with out-patient providers.
--- NOTE | 2017-03-09 22:46 | NUR ---
NURS Note Evening Mood: Denies depression. Endorses anxiety 12/03. Affect: Euphoric at times. Behavior: Pt spent much of shift in common areas interacting with peers and staff. At one point pt approached shy, reserved pt and said "We're having a libertarian. Let's be monkeys." Thought Content/Process: "The police are taking my house. They say its not clean. It's clean. I'm clean." Pt's insight remains poor related to the state of her home and personal hygiene. Pt showered for the first time since admit today. Immediately following shower, pt spilt urine on pants during specimen collection, picked at wound on leg until it bled, and covered wound with mustard. Pt changed pants and allowed documentation writer to clean some but not all of the blood, mustard, and urine off her leg with coaxing. PRN/NURS Notes: Pt showered.
--- NOTE | 2017-03-09 23:07 | PCM.PNPSY ---
Subjective Date of Service March 09, 2017 Subjective The patient was rather somnolent and her mucous membranes appeared dry. She stated that she had not been taking in fluids much as she had difficulty using the push button on her sink. She reported spitting up "frothy" sputum but during the interview produced clear sputum with what appeared to be food or dry skin and pronounced them to be "white aphids." She reported having a nosebleed last night "that went on for hours" but stopped using ice per staff. The patient reported having white aphids in the "back of my throat, asleep." On physical exam, mouth cavity appeared dry, but otherwise normal. the patient reported some left flank tenderness, negative on the right. Sleep: 5 hours Appetite: "alright" Suicidal and homicidal ideation: denies Auditory hallucinations: Denies Visual hallucinations: Denies Other Psychotic Symptoms: as above Anxiety: denies Depression: denies Current Medications Current Medications Aripiprazole 20 mg DAILY PO Last administered on 03/09/17 09:13; Admin Dose 20 MG; Start 03/08/17 at 08:30 Lisinopril 10 mg ONCE ONCE PO Last administered on 03/09/17 19:49; Admin Dose 10 MG; Start 03/09/17 at 17:20; Stop 03/09/17 at 17:29; Status DC Mental Status Exam Appearance: Unkept (Patient reports had put raspberry crystal light in hair, subsequently washed out.) Attitude: Pleasant, Cooperative Behavior: Distractible Affect: Well Modulated/Appropriate Mood: Other Thought Process/Associations: Tangential Speech Production: Paucity Speech Rate: Lags/Latency Speech Articulation: Normal Thought Content: Obsessions/compulsions, Perseveration Danger to Self/Suicidal Ideati: None Danger to Others: None Delusions: Paranoid (Endorses), Grandiose Hallucinations: Auditory (Denies), Visual (Denies) Consciousness: Alert Orientation: Person, Place, Date, Situation Memory: Grossly Intact Estimate Intellectual Function: Average Basis for IQ estimate: Awareness current events Attention/Concentration & Cogn: Impaired Insight: Limited Judgement: Limited Result Diagram: 03/09/17 1530 03/09/17 1530 Mental Health Plan The patient is a 71-year-old white female, who has been treated for bipolar disorder and psychosis for several decades by her primary care physician. She has been medication noncompliant and has not been taking any medication for several months. For the past six weeks, she has been experiencing poor sleep, and family and friends are noticing increasing distractibility and a decreased ability to take care of herself. When police arrived, they noted her home was in severe disarray and can no longer be inhabited. The patient was noted to be delusional, labile and tangential in her speech. On the unit, the patient has been bright and pleasant but continues to be delusional particularly regarding insects in her blood. She appears to have been not drinking fluids sufficiently and was proved with ice water and encouraged to drink. She was agreeable to having labwork drawn. [place] AXIS I Psychosis unspecified Bipolar disorder by history AXIS II Defer. AXIS III 1. Congestive heart failure. 2. Peripheral neuropathy. 3. Lower extremity edema. 4. History of respiratory failure with intubation May 2014. AXIS IV Unknown. AXIS V 35. Medications Gabapentin 300 twice a day, Celexa 20 daily Abilify 20 daily Metoprolol 25 mg daily. Treatments 1. The patient is admitted to the inpatient unit and will be provided a safe and secure environment. 2. The patient is denying current active suicidality and is not in need of a one-to-one at this time. He is agreeing to notify us should he have any acute suicidal or homicidal thoughts. 3. The patient is encouraged to participate with group and milieu activities. 4. The patient will be seen by the treatment team on a daily basis to assess symptoms, side effects and response to treatment. 5. Encourage PO fluids. 6. Will need to obtain outside records for the potential use of mood stabilizer. 7. CBC. CMP, UA. 8. Anticipated length of stay is 10-14 days. Tuan Barragan MD March 09, 2017 23:07 Tuan Barragan MD March 09, 2017 23:07
[2017-03-10] MEDS: oxyCODONE-Acetamin 5-325 mg Tablet PO PRN ×2 (03:48→11:54)
[2017-03-10] MEDS: hydrOXYzine Pamoate 25 mg Capsule PO PRN (03:50)
--- NOTE | 2017-03-10 05:32 | NUR ---
nursing, nights, 11-7 s- they ordered me a turkey sandwich at 0200. i lost a pint of blood last night. i'll walk up and down the halls yelling till they all wake up. you'll see. they'll all be up here soon. we'll all allegra you. you'll be in court. o- has appeared to sleep on and off in the dinning room. when awake has multiple requests. becomes increasingly loud and hostile if demands are not met. minimally responsive to staff attempt to de-escalate and redirect. easily distracted by other patients and disruptions to the milieu. alternates between her room and the dinning room. intrusive with other patients. assessed q 15 minutes. a- inadequate sleep, manipulative, poor boundaries, no apparent physical, distress. p- monitor behavior/emotional state, quality, times and amount of sleep, use and effect of medication. marbella
[2017-03-10] MEDS: Mupirocin 2% 22 Gm Ointment NASAL SCH ×3 (08:20→20:30)
[2017-03-10] MEDS: Triamcinolone 0.1% 30 Gm Cream TOPICAL SCH ×2 (08:21→20:30)
[2017-03-10] MEDS: Nystatin 100,000 Unit/Gm 15 Gm Powder TOPICAL SCH ×2 (08:21→20:30)
[2017-03-10] MEDS: ARIPiprazole 10 mg Tablet PO SCH (08:22)
[2017-03-10] MEDS: Potassium Chloride 20 mEq SR Tablet PO SCH (08:22)
[2017-03-10] MEDS: MeTOProlol XL 25 mg ER24 Tablet PO SCH (08:23)
[2017-03-10 09:16] VITALS: BP 115/48; PULSE 54; RESP 16
--- NOTE | 2017-03-10 14:05 | NUR ---
Nursing: Day shift. S: "They're all a bunch of a--hole satyards....(comment to peer). for Thank you honey..." O: Jaci is around the open unit and spending time between meals and snacks lying on bed sleeping. Expresses herself strongly when upset. At 1200, senior writer offered and administered one percocet. For pain. Pt had been grimacing. Assessment 2 hours later: "It didn't help." Skin: Still has lesions on back and upper extremities. Cream applied. Pt wouldn't allow nurse to apply cream to any areas under the clothes she was wearing. No observation of skin status except where clothes allow. Pt refused Lisinopril and Metoprolol. " I don't take blood pressure pills." Took other scheduled meds as offered. A: Not able to care for own ADL's effectively. P: Assess for safety, pain, and skin improvement. Addendum: 03/10/17 at 1424 by JUAN ANTONIO MAHMOOD RN Amended: Links added.
--- NOTE | 2017-03-10 18:52 | NUR ---
Observations [id number] Pt was asleep upon start of shift. She continues to fixate on food, and express anger regarding the fact that staff would not get her a turkey sandwich at 2am. Pt became very upset when she was caught taking food from other patient trays. "It's just going to be thrown away!!! You little bitch!" Pt slept much of the day. She attended group and went outside on the patio, coloring and sleeping. She continues to fall asleep in dining area, TV area, and patio. She was observed every 15 minutes of shift as directed.
--- NOTE | 2017-03-10 20:44 | PCM.PNPSY ---
Subjective Date of Service March 10, 2017 Subjective The patient reports drinking more fluids overnight and today. Her mucous membranes are moist. She reports that the white aphids are gone. She expressed frustration with the evening staff as they are not giving her sandwiches and snacks in the middle of the night. She denied side effects. Sleep: 3.5+ hours Appetite: "great" Suicidal and homicidal ideation: denies Auditory hallucinations: denies Visual hallucinations: denies Other Psychotic Symptoms: more goal oriented Anxiety: 0/10 Depression: 0/10 Current Medications Current Medications Lisinopril 10 mg ONCE ONCE PO Last administered on 03/09/17t 19:49; Admin Dose 10 MG; Start 03/09/17 at 17:20; Stop 03/09/17 at 17:29; Status DC Mental Status Exam Appearance: Unkept (Patient took shower and washed out raspberry crystal light. ) Attitude: Pleasant, Cooperative Behavior: Distractible Affect: Well Modulated/Appropriate Mood: Other Thought Process/Associations: Goal Directed (Fairly), Tangential (at times.) Speech Production: Paucity Speech Rate: Lags/Latency Speech Articulation: Normal Thought Content: Obsessions/compulsions, Perseveration Danger to Self/Suicidal Ideati: None Danger to Others: None Delusions: Paranoid (Endorses) Hallucinations: Auditory (Denies), Visual (Denies) Consciousness: Alert Orientation: Person, Place, Date, Situation Memory: Grossly Intact Estimate Intellectual Function: Average Basis for IQ estimate: Awareness current events Attention/Concentration & Cogn: Impaired Insight: Limited Judgement: Limited Result Diagram: 03/09/17 1530 03/09/17 1530 Mental Health Plan The patient is a 71-year-old white female, who has been treated for bipolar disorder and psychosis for several decades by her primary care physician. She has been medication noncompliant and has not been taking any medication for several months. For the past six weeks, she has been experiencing poor sleep, and family and friends are noticing increasing distractibility and a decreased ability to take care of herself. When police arrived, they noted her home was in severe disarray and can no longer be inhabited. The patient was noted to be delusional, labile and tangential in her speech. On the unit, the patient has been bright and pleasant and reported that the insects in her blood were gone. She has increased her fluid intake sufficiently and has been proved with ice water and encouraged to drink. [place] AXIS I Psychosis unspecified Bipolar disorder by history AXIS II Defer. AXIS III 1. Congestive heart failure. 2. Peripheral neuropathy. 3. Lower extremity edema. 4. History of respiratory failure with intubation May 2014. AXIS IV Unknown. AXIS V 35. Medications Gabapentin 300 twice a day, Celexa 20 daily Abilify 20 daily Metoprolol 25 mg daily. Treatments 1. The patient is admitted to the inpatient unit and will be provided a safe and secure environment. 2. The patient is denying current active suicidality and is not in need of a one-to-one at this time. He is agreeing to notify us should he have any acute suicidal or homicidal thoughts. 3. The patient is encouraged to participate with group and milieu activities. 4. The patient will be seen by the treatment team on a daily basis to assess symptoms, side effects and response to treatment. 5. Encourage PO fluids. 6. Anticipated length of stay is 10-14 days. Tuan Barragan MD March 10, 2017 20:44
--- NOTE | 2017-03-11 05:35 | NUR ---
nursing, nights, 11-7 s- i need you to help me get up. get the fuck out of here. o- has appeared to sleep after [id number], [id number], [id number] and after 0300. assessed q 15 minutes. a- interrupted sleep, irritable, no apparent distress. p- monitor behavior/emotional state, quality, times and amount of sleep, use and effect of medication. marbella
[2017-03-11] MEDS: ARIPiprazole 10 mg Tablet PO SCH (08:39)
[2017-03-11] MEDS: MeTOProlol XL 25 mg ER24 Tablet PO SCH (08:39)
[2017-03-11] MEDS: Potassium Chloride 20 mEq SR Tablet PO SCH (08:39)
[2017-03-11] MEDS: Triamcinolone 0.1% 30 Gm Cream TOPICAL SCH ×2 (08:43→20:19)
[2017-03-11] MEDS: Mupirocin 2% 22 Gm Ointment NASAL SCH ×3 (08:43→20:19)
[2017-03-11] MEDS: Nystatin 100,000 Unit/Gm 15 Gm Powder TOPICAL SCH ×2 (08:44→20:19)
[2017-03-11] MEDS: oxyCODONE-Acetamin 5-325 mg Tablet PO PRN ×2 (09:06→17:01)
--- NOTE | 2017-03-11 13:04 | NUR ---
NURS Note Day Mood: Denies depression anxiety. Affect: Fluctuates between euphoric and angry. Thought Process/Content: "I haven't been coughing up any more white aphids. They're not in my blood anymore." Delusional, bizarre. Loose associations, tangential. Denies SI, HI. Denies AH, VH. Behavior: Pt continues to tong food and other items in room. Pt yelled at web content writer to stop stealing things from her when web content writer was in room putting chucks pad under fitted sheet. Pt repeatedly asked painter interior finish for his number/card and responded with anger when staff interfered. PRNs/NURS: Pt urinated in bed during NOC shift. Placed depends in room for overnight use. Placed chucks pad under fitted sheet. Pt took PRN Percoset 5-325 for back and lower leg pain at 0906.
[2017-03-11] MEDS ORDERED: Sodium Chloride NAS 45 mL Spray NASAL PRN (14:20)
--- NOTE | 2017-03-11 14:38 | NUR ---
NURS re: metamuciil Metamucil currently scheduled. Per Dr. Houston, give Metamucil when pt wakes and requests food.
--- NOTE | 2017-03-11 16:04 | NUR ---
Professor Of Psychiatry/Counselor: S/O: Patient slept 5.5 hours last night as per staff. She denies S/I and H/I. She denies auditory and visual hallucinations. Depression is 0/10 and anxiety is 0/10. A: Patient is cooperative, euphoric, tangential, religiously preoccupied, paranoid, grandiose, limited insight, limited judgment.. P: Follow the care plan, coordinate with out-patient providers.
--- NOTE | 2017-03-11 16:43 | PCM.PNPSY ---
Subjective Date of Service March 11, 2017 Subjective The patient reported that the staff are not allowing her son to visit and are sending him away and refusing to let his phone calls through. She states that her son is reporting this although he is on the allowed list of visitors. She is still fixated on the [facility] trying to steal her property for $ 100k to build a "[employer] facility [place]. The patient reports drinking more fluids overnight and today. Her mucous membranes are moist. She reports that the white aphids are still gone. She expressed frustration with the evening staff as they are not giving her sandwiches and snacks in the middle of the night. She denied side effects. Sleep: 5.5+ hours Appetite: "hungry" Suicidal and homicidal ideation: denies Auditory hallucinations: denies Visual hallucinations: denies Other Psychotic Symptoms: more goal oriented Anxiety: 0/10 Depression: 0/10 Current Medications Current Medications Lisinopril 10 mg DAILY PO Last administered on 03/11/17 08:40; Admin Dose 10 MG ; Start 03/10/17 at 08:30 Lisinopril 10 mg ONCE ONCE PO Last administered on 03/09/17 19:49; Admin Dose 10 MG; Start 03/09/17 at 17:20; Stop 03/09/17 at 17:29; Status DC Mental Status Exam Appearance: Unkept (Patient took shower and washed out raspberry crystal light , but residue still in hair, has used crystal light "lipstick".) Attitude: Pleasant, Cooperative Behavior: Distractible Affect: Well Modulated/Appropriate Mood: Other Thought Process/Associations: Goal Directed (Fairly), Tangential (at times.) Speech Production: Normal Speech Rate: Normal Speech Articulation: Normal Thought Content: Obsessions/compulsions, Perseveration Danger to Self/Suicidal Ideati: None Danger to Others: None Delusions: Paranoid (Endorses) Hallucinations: Auditory (Denies), Visual (Denies) Consciousness: Alert Orientation: Person, Place, Date, Situation Memory: Grossly Intact Estimate Intellectual Function: Average Basis for IQ estimate: Awareness current events Attention/Concentration & Cogn: Impaired Insight: Limited Judgement: Limited Result Diagram: 03/09/17 1530 03/09/17 1530 Mental Health Plan The patient is a 71-year-old white female, who has been treated for bipolar disorder and psychosis for several decades by her primary care physician. She has been medication noncompliant and has not been taking any medication for several months. For the past six weeks, she has been experiencing poor sleep, and family and friends are noticing increasing distractibility and a decreased ability to take care of herself. When police arrived, they noted her home was in severe disarray and can no longer be inhabited. The patient was noted to be delusional, labile and tangential in her speech. On the unit, the patient has been bright and pleasant and reported that the insects in her blood were gone. She has increased her fluid intake sufficiently and has been provided with ice water and encouraged to drink fluids. She may need further titration of aripiprazole. [place] AXIS I Psychosis unspecified Bipolar disorder by history AXIS II Defer. AXIS III 1. Congestive heart failure. 2. Peripheral neuropathy. 3. Lower extremity edema. 4. History of respiratory failure with intubation May 2014. AXIS IV Unknown. AXIS V 35. Medications Gabapentin 300 twice a day, Celexa 20 daily Abilify 20 daily Metoprolol 25 mg daily. Treatments 1. The patient is admitted to the inpatient unit and will be provided a safe and secure environment. 2. The patient is denying current active suicidality and is not in need of a one-to-one at this time. He is agreeing to notify us should he have any acute suicidal or homicidal thoughts. 3. The patient is encouraged to participate with group and milieu activities. 4. The patient will be seen by the treatment team on a daily basis to assess symptoms, side effects and response to treatment. 5. Encourage PO fluids. 6. Anticipated length of stay is 10-14 days. Tuan Barragan MD March 11, 2017 16:43
[2017-03-11 17:34] VITALS: BP 136/55; PULSE 53; RESP 16
--- NOTE | 2017-03-11 18:50 | NUR ---
[facility] Day Shift Pt affect and behavior appears unchanged from previous shifts. Pt maintained behavioral control throughout the shift. Pt affect appears bright, manic. Pt spends most of the shift resting in her room or interacting with peers in the dining room. Pt is pleasant and appropriate with staff and peers when active on the unit. Pt speech and thought content appear tangential, occasionally nonsensical. Pt observed using various unit amenities as "makeup." Pt attended all meals and ate approx 70% of all meals.
--- NOTE | 2017-03-11 22:09 | NUR ---
NURSING NOTE [id number] Mood: "good" Affect: fatigued, pleasant Behavior: napping in common area at start of shift. Did not want to move to her bedroom when offered. Pt. refused a shower, telling this narrative writer she showered this morning despite records indicating she did not and she is malodorous and disheveled. Reports that she wet the bed last night b/c she was unable to get out of bed d/t muscle spasms. Thought processes: delusional, rambling, accusing other staff here of allowing her to "bleed out a pint of blood yesterday" through her nose, still harboring delusions that bugs live inside of her wounds. PRNs Oxycodone @ 17:00 for 10/10 bilateral leg pain, later reported it was "not very effective"
[2017-03-12] MEDS: oxyCODONE-Acetamin 5-325 mg Tablet PO PRN ×2 (03:35→23:29)
--- NOTE | 2017-03-12 04:47 | NUR ---
Nursing note: senior microsoft net developer/sleep, prn Patient asleep early part of shift, then awake at 0335, stating she had pain all over her chest area,and also needed food for her diverticulosis. Patient received 1 Percocet and Metamucil as ordered. Patient continues awake in her room and dining room remainder of shift, but denies further complaints. Continues to have fragmented sleep
[2017-03-12] MEDS: ARIPiprazole 10 mg Tablet PO SCH (08:28)
[2017-03-12] MEDS: Potassium Chloride 20 mEq SR Tablet PO SCH ×2 (08:28→08:30)
[2017-03-12] MEDS: MeTOProlol XL 25 mg ER24 Tablet PO SCH ×2 (08:29→08:30)
[2017-03-12] MEDS: Triamcinolone 0.1% 30 Gm Cream TOPICAL SCH ×2 (08:29→20:24)
[2017-03-12] MEDS: Mupirocin 2% 22 Gm Ointment NASAL SCH ×3 (08:29→20:23)
[2017-03-12] MEDS: Nystatin 100,000 Unit/Gm 15 Gm Powder TOPICAL SCH ×2 (08:30→20:23)
--- NOTE | 2017-03-12 11:14 | NUR ---
Nursing Day Shift- S- "What is that? I don't take any medications for blood pressure. I'm fine. I want to be left alone. I won't fall off my chair." O- Pt. had slept 5 plus hours per report. She had her hair and lips stained with Crystal light. Pt. eat breakfast, and became irritable with her morning medications, initially declining her antidepressant, and her BP medications. When she was informed that her BP had been elevated today, she appeared to anger, then denied having any problems. She refused to take them, but did take the antidepressant, saying it helped with "panic." She appeared to be falling asleep in a DR chair, and was encouraged to rest in her bed, but again appeared agitated with staff at the suggestion. A- Hypomanic and delusional with very little insight. Increased irritability and agitation from when seen 1 week previous. P- Cont. BHTP.
[2017-03-12 15:31] VITALS: BP 170/83; PULSE 54; RESP 20
--- NOTE | 2017-03-12 16:00 | PCM.PNPSY ---
Subjective Date of Service March 12, 2017 Subjective I spent 30 minutes both reviewing treatment plan with clinical team, interviewing the patient and providing supportive/educational psychotherapy. I spent more than 50% of the time counseling the patient. I reviewed the treatment plan with the patient and discussed options available including the potential risks, benefits and side effects. Jaci reports a marked improvement in thought organization and mood stability. Staff reports that she has been active and participating well in one -to-one unit and group activities. She slept four hours and denies depression manic or psychotic symptoms review. Staff reports that she was initially confused and amicable now is tending to become more tense and angry. She has poor hygiene and has a difficult time attending to activities of daily living. She does well with redirection and support. Her house has been condemned by the [facility] but she is unwilling or unable to acknowledge this. She denies medication side effects. Current Medications Current Medications Psyllium Husk 1 packet HS PO Last administered on 03/12/17t 03:43; Admin Dose 1 PACKET; Start 03/10/17 at 21:00 Mental Status Exam Vital Signs Vital Signs Date Time Temp Pulse Resp B/P Pulse Ox O2 Delivery O2 Flow Rate FiO2 03/12/17 15:31 36.6 54 20 170/83 Appearance: Unkept (Patient took shower and washed out raspberry crystal light , but residue still in hair, has used crystal light "lipstick".) Attitude: Pleasant, Cooperative Behavior: Distractible Affect: Well Modulated/Appropriate Mood: Other Thought Process/Associations: Goal Directed (Fairly), Tangential (at times.) Speech Production: Normal Speech Rate: Normal Speech Articulation: Normal Thought Content: Obsessions/compulsions, Perseveration Danger to Self/Suicidal Ideati: None Danger to Others: None Delusions: Paranoid (Endorses) Hallucinations: Auditory (Denies), Visual (Denies) Consciousness: Alert Orientation: Person, Place, Date, Situation Memory: Grossly Intact Estimate Intellectual Function: Average Basis for IQ estimate: Awareness current events Attention/Concentration & Cogn: Impaired Insight: Limited Judgement: Limited Result Diagram: 03/09/17 1530 03/09/17 1530 Mental Health Plan The patient is a 71-year-old white female, who has been treated it sounds like for bipolar mood disorder and psychosis for several decades by a primary care physician, that she has felt very comfortable with. She has been medication noncompliant and has not taking any medication for several months. For the past six weeks, she reports poor sleep, and family and friends are noticing increasing distractibility and a decreased ability to take care of herself. When police arrived, they noted her apartment was extremely in disarray and that client was delusional, labile and tangential in her speech. She may need further titration of aripiprazole. [place] AXIS I Psychosis unspecified Bipolar disorder by history AXIS II Defer. AXIS III 1. Congestive heart failure. 2. Peripheral neuropathy. 3. Lower extremity edema. 4. History of respiratory failure with intubation May 2014. AXIS IV Unknown. AXIS V 35. Medications Gabapentin 300 twice a day, Celexa 20 daily Abilify 20 daily Metoprolol 25 mg daily. Treatments 1. The patient is admitted to the inpatient unit and will be provided a safe and secure environment. 2. The patient is denying current active suicidality and is not in need of a one-to-one at this time. He is agreeing to notify us should he have any acute suicidal or homicidal thoughts. 3. The patient is encouraged to participate with group and milieu activities. 4. The patient will be seen by the treatment team on a daily basis to assess symptoms, side effects and response to treatment. 5. Encourage PO fluids. 6. Anticipated length of stay is 10-14 days. Jose Davies MD March 12, 2017 16:00
--- NOTE | 2017-03-12 17:48 | NUR ---
Observation 0700 to 1900 Pt maintained behavioral control throughout the shift. Pt behavioral seems mostly unchanged from previous shifts/notes. Pt is manic, active, engaged on unit in community activities. Pt spent most of shift on unit interacting with peers or watching TV. Pt spent awhile on patio in afternoon. pt is attempting to tong food, wrappers, cups, etc... Pt was smearing peanut butter on scabs on legs in after noon. "It's a healing agent." Pt is mostly cooperative with staff, but sometimes needs to be asked to multiple times. Pt ate 75-100% of meals and was observed every 15 minutes as ordered.
--- NOTE | 2017-03-12 22:47 | NUR ---
NURSING NOTE [id number] Mood: "peachy" *laughs* Affect: mostly calm and appropriate w/some episodes of agitation directed at staff Behavior: napping in the common area w/stuffed animal but refusing to go back to her room to sleep. Refused offer of shower again this evening despite disheveled appearance and showed off to this communications writer the various makeup concoctions she has made out of food items here on the unit (e.g. jello and koolaid for lipstick). Staff witnessed her pick a half-eaten apple out of the communal trash can and begin to eat it and when staff stopped her from this she became very agitated and stormed to her room. Med compliant at . Thought processes: delusional, paranoid about various family members and the government. Still believes bugs are living in her skin and crawling out of her wounds and scabs spread over her body. No SI/HI/depression.
--- NOTE | 2017-03-13 06:23 | NUR ---
Sleep 11p-7a Broken sleep with brief increments of sleep time. Pt slept from [id number], [id number], [id number], 0400 to current time. Total amount of time asleep over 7 hours.
[2017-03-13] MEDS: Mupirocin 2% 22 Gm Ointment NASAL SCH ×3 (08:23→20:59)
[2017-03-13] MEDS: ARIPiprazole 10 mg Tablet PO SCH (08:23)
[2017-03-13] MEDS: Potassium Chloride 20 mEq SR Tablet PO SCH (08:24)
[2017-03-13] MEDS: MeTOProlol XL 25 mg ER24 Tablet PO SCH (08:24)
[2017-03-13] MEDS: Triamcinolone 0.1% 30 Gm Cream TOPICAL SCH ×2 (08:25→21:00)
[2017-03-13] MEDS: Nystatin 100,000 Unit/Gm 15 Gm Powder TOPICAL SCH ×2 (08:25→21:00)
--- NOTE | 2017-03-13 11:17 | NUR ---
Nursing day shift- S- "Don't put the cream on until I wash my legs. I'm going to wash them in the toilet. See that! My put Terell Uma machine egg washer chains on me when I him. I got those cuts in the group home. They put me there so they could steal my house." O- Pt. was awake for breakfast. Pleasant and bright until redirected by staff from unsanitary events. Pt's right leg has 3, less then 1 cm open cuts that were treated as directed. No other wounds noted when Pt. allowed staff to onserve her legs. Pt. continues to refuse to shower, and become enraged when encouraged. She refused her BP medications again today. A- Delusional with potentially harmful hygiene and health distortions. Eating well. P- Cont. BHTP.
--- NOTE | 2017-03-13 15:11 | PCM.PNPSY ---
Subjective Date of Service March 13, 2017 Subjective I spent 30 minutes both reviewing treatment plan with clinical team, interviewing the patient and providing supportive/educational psychotherapy. I spent more than 50% of the time counseling the patient. I reviewed the treatment plan with the patient and discussed options available including the potential risks, benefits and side effects. Jaci reports a marked improvement in thought organization and mood stability. Staff reports that she has been active and participating well in one -to-one unit and group activities. She slept four hours and denies depression manic or psychotic symptoms review. Staff reports that she was initially confused and amicable now is tending to become more tense and angry. She is tending to tong in her room and actually stuffs food in her cheeks. She does well unless somebody interferes with what her she wants to do. She is expressing some paranoia that her brother is coming after her. She has poor hygiene and has a difficult time attending to activities of daily living. She does well with redirection and support. [place] [facility] [place] she is unwilling or unable to acknowledge this. She denies medication side effects. Mental Status Exam Appearance: Unkept (Patient took shower and washed out raspberry crystal light , but residue still in hair, has used crystal light "lipstick".) Attitude: Pleasant, Cooperative Behavior: Distractible Affect: Well Modulated/Appropriate Mood: Other Thought Process/Associations: Goal Directed (Fairly), Tangential (at times.) Speech Production: Normal Speech Rate: Normal Speech Articulation: Normal Thought Content: Obsessions/compulsions, Perseveration Danger to Self/Suicidal Ideati: None Danger to Others: None Delusions: Paranoid (Endorses) Hallucinations: Auditory (Denies), Visual (Denies) Consciousness: Alert Orientation: Person, Place, Date, Situation Memory: Grossly Intact Estimate Intellectual Function: Average Basis for IQ estimate: Awareness current events Attention/Concentration & Cogn: Impaired Insight: Limited Judgement: Limited Result Diagram: 03/09/17 1530 03/09/17 1530 Mental Health Plan The patient is a 71-year-old white female, who has been treated it sounds like for bipolar mood disorder and psychosis for several decades by a primary care physician, that she has felt very comfortable with. She has been medication noncompliant and has not taking any medication for several months. For the past six weeks, she reported poor sleep, and family and friends were noticing increasing distractibility and a decreased ability to take care of herself. When police arrived, they noted her apartment was extremely in disarray and that client was delusional, labile and tangential in her speech. She does well unless somebody interferes with what her she wants to do. She is expressing some paranoia that her brother is coming after her. She has poor hygiene and has a difficult time attending to activities of daily living. She does well with redirection and support. Her [place] has been [place] [facility] [place] she is unwilling or unable to acknowledge this. She denies medication side effects. [place] AXIS I Psychosis unspecified Bipolar disorder by history AXIS II Defer. AXIS III 1. Congestive heart failure. 2. Peripheral neuropathy. 3. Lower extremity edema. 4. History of respiratory failure with intubation May 2014. AXIS IV Unknown. AXIS V 35. Medications Gabapentin 300 twice a day, Celexa 20 daily Abilify 20 daily Metoprolol 25 mg daily. Treatments 1. The patient is admitted to the inpatient unit and will be provided a safe and secure environment. 2. The patient is denying current active suicidality and is not in need of a one-to-one at this time. He is agreeing to notify us should he have any acute suicidal or homicidal thoughts. 3. The patient is encouraged to participate with group and milieu activities. 4. The patient will be seen by the treatment team on a daily basis to assess symptoms, side effects and response to treatment. 5. Encourage PO fluids. 6. Anticipated length of stay is 10-14 days. Jose Davies MD March 13, 2017 15:11
[2017-03-13 17:16] VITALS: BP 139/80; PULSE 62; RESP 18
--- NOTE | 2017-03-13 18:29 | NUR ---
NURSING NOTE [id number] Mood: "alright" Affect: pleasant, friendly Behavior: visible in milieu, continues to tong food; stuffing peanut butter and jelly packets and ranch dressing containers in her bra and pockets and had half-eaten fruits in her bedroom. She worked on an art booklet for her son. Napped in the common area. Thought processes: continues to be delusional; ranted for some time about how the city is trying to steal her house from her so that they can build a retirement on the property and expresses no insight into the poor condition of the home or knowledge of it being condemned. Also ranted for some time about a local substation maintenance technician in [facility] being "a sexual pervert." She denies AH/VH. Reports she is not depressed or suicidal and believes she has no reason for being here.
--- NOTE | 2017-03-13 21:01 | NUR ---
Obs Dayshift Pt is disorganized, delusional, irritable, intrusive. Pt at times is offending some peers, arguing w/ them and staff. Pt continues to tong random items and food, stashing things around the unit. Pt is often needing reminders and direction from staff. Using Crystal Light as make up and hair dye, very poor ADL's, staff has tried to get her to shower daily with no success. Pt takes things out of the garbage, and washing things in her toilet. When staff asks about this she becomes defensive, angry and walks away. Poor ADL's, Good meals
[2017-03-14] MEDS: oxyCODONE-Acetamin 5-325 mg Tablet PO PRN ×2 (01:36→20:45)
--- NOTE | 2017-03-14 05:23 | NUR ---
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 Patient was given supplies, clean depends and did so. Patient also complains of "pain all over" and received Percocet 1 tab at 0136. Patient had a snack in dining room and remained awake until 0345, then retired to bed and appears to be sleeping on subsequent safety checks.
[2017-03-14 09:11] VITALS: BP 180/87; PULSE 69; RESP 18
[2017-03-14] MEDS: ARIPiprazole 10 mg Tablet PO SCH (09:15)
[2017-03-14] MEDS: Mupirocin 2% 22 Gm Ointment NASAL SCH ×3 (09:15→20:44)
[2017-03-14] MEDS: Potassium Chloride 20 mEq SR Tablet PO SCH (09:15)
[2017-03-14] MEDS: Triamcinolone 0.1% 30 Gm Cream TOPICAL SCH ×2 (09:16→20:45)
[2017-03-14] MEDS: Nystatin 100,000 Unit/Gm 15 Gm Powder TOPICAL SCH ×2 (09:16→20:45)
[2017-03-14] MEDS: MeTOProlol XL 25 mg ER24 Tablet PO SCH (09:35)
[2017-03-14 10:00] VITALS: BP 180/87; PULSE 69; RESP 18
[2017-03-14 10:30] VITALS: BP 143/63; PULSE 56
--- NOTE | 2017-03-14 14:09 | PCM.PNPSY ---
Subjective Date of Service March 14, 2017 Subjective I spent 30 minutes both reviewing treatment plan with clinical team, interviewing the patient and providing supportive/educational psychotherapy. I spent more than 50% of the time counseling the patient. I reviewed the treatment plan with the patient and discussed options available including the potential risks, benefits and side effects. Jaci reports having good thought organization and mood stability. Staff reports that she is tending to become more tense and angry. She is tending to tong in her room and actually stuffs food in her cheeks. She does well unless somebody interferes with what her she wants to do. She is expressing some paranoia that her brother is coming after her. She has poor hygiene and has a difficult time attending to activities of daily living. She does well with redirection and support She has been active and participating well in one-to-one unit and group activities. She slept 5 hours and denies depression manic or psychotic symptoms review. Her house has been condemned by the [facility] but she is unwilling or unable to acknowledge this. She denies medication side effects. Mental Status Exam Vital Signs Vital Signs Date Time Temp Pulse Resp B/P Pulse Ox O2 Delivery O2 Flow Rate FiO2 03/14/17 10:30 56 143/63 03/14/17 10:00 36.3 69 18 180/87 03/14/17 09:11 36.4 69 18 180/87 Appearance: Unkept (Patient took shower and washed out raspberry crystal light , but residue still in hair, has used crystal light "lipstick".) Attitude: Pleasant, Cooperative Behavior: Distractible Affect: Well Modulated/Appropriate Mood: Other Thought Process/Associations: Goal Directed (Fairly), Tangential (at times.) Speech Production: Normal Speech Rate: Normal Speech Articulation: Normal Thought Content: Obsessions/compulsions, Perseveration Danger to Self/Suicidal Ideati: None Danger to Others: None Delusions: Paranoid (Endorses) Hallucinations: Auditory (Denies), Visual (Denies) Consciousness: Alert Orientation: Person, Place, Date, Situation Memory: Grossly Intact Estimate Intellectual Function: Average Basis for IQ estimate: Awareness current events Attention/Concentration & Cogn: Impaired Insight: Limited Judgement: Limited Result Diagram: 03/09/17 1530 03/09/17 1530 Mental Health Plan The patient is a 71-year-old white female, who has been treated it sounds like for bipolar mood disorder and psychosis for several decades by a primary care physician, that she has felt very comfortable with. She has been medication noncompliant and has not taking any medication for several months. For the past six weeks, she reported poor sleep, and family and friends were noticing increasing distractibility and a decreased ability to take care of herself. When police arrived, they noted her apartment was extremely in disarray and that client was delusional, labile and tangential in her speech. She does well unless somebody interferes with what her she wants to do. She is expressing some paranoia that her brother is coming after her. She has poor hygiene and has a difficult time attending to activities of daily living. She does well with redirection and support. Her house has been condemned by the [facility] but she is unwilling or unable to acknowledge this. She denies medication side effects. [place] AXIS I Psychosis unspecified Bipolar disorder by history AXIS II Defer. AXIS III 1. Congestive heart failure. 2. Peripheral neuropathy. 3. Lower extremity edema. 4. History of respiratory failure with intubation May 2014. AXIS IV Unknown. AXIS V 35. Medications Gabapentin 300 twice a day, Celexa 20 daily Abilify 20 daily Metoprolol 25 mg daily. Treatments 1. The patient is admitted to the inpatient unit and will be provided a safe and secure environment. 2. The patient is denying current active suicidality and is not in need of a one-to-one at this time. He is agreeing to notify us should he have any acute suicidal or homicidal thoughts. 3. The patient is encouraged to participate with group and milieu activities. 4. The patient will be seen by the treatment team on a daily basis to assess symptoms, side effects and response to treatment. 5. Encourage PO fluids. 6. Anticipated length of stay is 10-14 days. Jose Davies MD March 14, 2017 14:09
--- NOTE | 2017-03-14 15:12 | NUR ---
Shower/room cleaned Pt. pleasant today, explaining several times that she showers 4-5 times a day in the bathroom. Her room smells of urine and has old food and garbage all over the place. Denies anxiety, depression, hallucinations, or thoughts of harm to self or others. This morning I sat and chatted with her, then said it was time for a shower. Pt. was cooperative and compliant and I helped her in the shower room to get clean. Once she was in the shower, she washed her hair and body 3 times in a row. during this time, housekeeping came and changed linens, cleaned the floor and we threw away the old food and dirty garbage. Pt. did not seem to have any problems with the changes made to her room and continued to be pleasant, cooperative and social for the remainder of the day. She uses marker to color her hair and lips and I have seen her brush her teeth several times today.
--- NOTE | 2017-03-14 20:41 | NUR ---
[facility] Note [id number] D- Patient attended about half of the structured groups and activities this shift. Patient attended ADLs including a shower and appears to be moderately groomed. She ate all of her meals and snacks, excluding the items in her room which were thrown away. A- Patient started the shift irritable but social with peers. She was in the art group and then attended part of the DBT group before leaving to watch TV. She spent most of the shift either eating and taking food or other supplies to her room or watching television. Patient denies hiding food and other items she finds around the unit and in the dinette. Patient was periodically irritable while watching TV, arguing with peers over things like the channel or talking too much. She was not easily redirected during these periods but eventually fell asleep for most of the evening. P- Continue current treatment plan.
[2017-03-15] MEDS: oxyCODONE-Acetamin 5-325 mg Tablet PO PRN ×2 (03:31→19:53)
--- NOTE | 2017-03-15 06:15 | NUR ---
Observations 1900 - 0700 Pt was in common area when the shift started. Pt watched some TV and fell asleep in chair. Pt was observed to be anxious, intrusive, labile, delusional and out on the unit most of the evening. Pt was pleasant, polite and cooperative when approached. Pt maintained behavior throughout the shift. Pt speech was rambling and eye contact was good. Pt attended wrap up group. Pt stated her positive for the day was "smell the roses it was a beautiful day" Pt rated her mood for the day 10+/10, with 10 being the best. Pt was social with peers and staff. Pt first appeared asleep at 0000 and awoke once during the night. Pt was observed every 15 minutes through the night as ordered. Pt is currently asleep with respirations apparent.
--- NOTE | 2017-03-15 06:38 | NUR ---
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 Patient given supplies, but insists she is independent in care. Patient up to dining area,and complains of leg pain. Patient received Percocet 1 tab at 0330 along with Motrin 600 mg po. Patient also complains she does not like Metamucil for her diverticulosis, and given cereal and milk per her request. Patient was able to retire back to bed at 0415 and appears to be asleep on subsequent safety checks.
[2017-03-15] MEDS: MeTOProlol XL 25 mg ER24 Tablet PO SCH (08:25)
[2017-03-15] MEDS: Potassium Chloride 20 mEq SR Tablet PO SCH (08:25)
[2017-03-15] MEDS: ARIPiprazole 10 mg Tablet PO SCH (08:26)
[2017-03-15] MEDS: Nystatin 100,000 Unit/Gm 15 Gm Powder TOPICAL SCH ×2 (08:26→20:30)
[2017-03-15] MEDS: Mupirocin 2% 22 Gm Ointment NASAL SCH ×3 (08:26→20:30)
[2017-03-15] MEDS: Triamcinolone 0.1% 30 Gm Cream TOPICAL SCH ×2 (08:27→20:30)
--- NOTE | 2017-03-15 12:29 | PCM.PNPSY ---
Subjective Date of Service March 15, 2017 Subjective I spent 30 minutes both reviewing treatment plan with clinical team, interviewing the patient and providing supportive/educational psychotherapy. I spent more than 50% of the time counseling the patient. I reviewed the treatment plan with the patient and discussed options available including the potential risks, benefits and side effects. Jaci reports having good thought organization and mood stability. Staff reports that she is hoarding food in her room her cloths and actually stuffs food in her cheeks. She does well unless somebody interferes with what her she wants to do. She is expressing some paranoia that her brother is coming after her. She has poor hygiene and has a difficult time attending to activities of daily living. She does well with redirection and support She has been active and participating well in one-to-one unit and group activities. She slept 5 hours and denies depression manic or psychotic symptoms review. Her house has been condemned by the [facility] but she is unwilling or unable to acknowledge this. She denies medication side effects. Mental Status Exam Appearance: Unkept (Patient took shower and washed out raspberry crystal light , but residue still in hair, has used crystal light "lipstick".) Attitude: Pleasant, Cooperative Behavior: Distractible Affect: Well Modulated/Appropriate Mood: Other Thought Process/Associations: Goal Directed (Fairly), Tangential (at times.) Speech Production: Normal Speech Rate: Normal Speech Articulation: Normal Thought Content: Obsessions/compulsions, Perseveration Danger to Self/Suicidal Ideati: None Danger to Others: None Delusions: Paranoid (Endorses) Hallucinations: Auditory (Denies), Visual (Denies) Consciousness: Alert Orientation: Person, Place, Date, Situation Memory: Grossly Intact Estimate Intellectual Function: Average Basis for IQ estimate: Awareness current events Attention/Concentration & Cogn: Impaired Insight: Limited Judgement: Limited Result Diagram: 03/09/17 1530 03/09/17 1530 Mental Health Plan The patient is a 71-year-old white female, who has been treated it sounds like for bipolar mood disorder and psychosis for several decades by a primary care physician, that she has felt very comfortable with. She has been medication noncompliant and has not taking any medication for several months. For the past six weeks, she reported poor sleep, and family and friends were noticing increasing distractibility and a decreased ability to take care of herself. When police arrived, they noted her apartment was extremely in disarray and that client was delusional, labile and tangential in her speech. She does well unless somebody interferes with what her she wants to do. She is expressing some paranoia that her brother is coming after her. She has poor hygiene and has a difficult time attending to activities of daily living. She does well with redirection and support. Her house has been condemned by the [facility] but she is unwilling or unable to acknowledge this. She denies medication side effects. We are trying to find placement for her in a setting where she can have her medications monitored And have help with activities of daily living. [place] AXIS I Psychosis unspecified Bipolar disorder by history AXIS II Defer. AXIS III 1. Congestive heart failure. 2. Peripheral neuropathy. 3. Lower extremity edema. 4. History of respiratory failure with intubation May 2014. AXIS IV Unknown. AXIS V 35. Medications Gabapentin 300 twice a day, Celexa 20 daily Abilify 20 daily Metoprolol 25 mg daily. Treatments 1. The patient is admitted to the inpatient unit and will be provided a safe and secure environment. 2. The patient is denying current active suicidality and is not in need of a one-to-one at this time. He is agreeing to notify us should he have any acute suicidal or homicidal thoughts. 3. The patient is encouraged to participate with group and milieu activities. 4. The patient will be seen by the treatment team on a daily basis to assess symptoms, side effects and response to treatment. 5. Encourage PO fluids. 6. Anticipated length of stay is 10-14 days. 7. Discharge to assisted care such as [facility]. Jose Davies MD March 15, 2017 12:29
[2017-03-15 12:48] VITALS: BP 147/68; PULSE 51; RESP 16
--- NOTE | 2017-03-15 15:45 | NUR ---
Behavior Pt. took her LISBETH medications. However, she refused her Lisinopril. She couldn't articulate why she didn't want her Lisinopril. Thoughts and speech - disorganized. Redirection and intervention given as indicated.
--- NOTE | 2017-03-15 18:52 | NUR ---
Observations [id number] Pt asleep upon start of shift. Pt continues to complain about lack of food and not being able to eat large amounts due to a medical condition. Pt very irritable today, stating she didn't feel well, "very dizzy." Pt did not attend groups aside from Community Meeting. She slept during the day, and enjoys sleeping on unit in dining room or by TV. Pt very demanding regarding wants, such as wanting to watch a movie during group time. "I want to watch a movie now!!!" She continues to attempt to tong food in room, was observed putting food in her pants to take back to her room. This was addressed with pt, and she denies taking food to her room. She watched TV in the evening. Pt was observed every 15 minutes of shift as directed.
[2017-03-16] MEDS: oxyCODONE-Acetamin 5-325 mg Tablet PO PRN ×2 (02:00→23:13)
--- NOTE | 2017-03-16 05:35 | NUR ---
Nursing noc Pt noted to have broken sleep this shift. Pleasant and smiling at appearing to follow conversation then noted to be talking about something different. dairy helper equal bilat, zero difficulty walking, zero facial asymmetry. Pt noted to swallow solid food without difficulty, while at the same time note to choke after drinking fluids. Expressed importance of sitting up straight and tucking chin when swallowing fluids. Pt demonstrated directly afterwards, but noted to forget hours later when asking for PRN medication. Broken sleep this shift totally 4.5 hours.
[2017-03-16] MEDS: MeTOProlol XL 25 mg ER24 Tablet PO SCH ×2 (08:30→08:43)
[2017-03-16] MEDS: Mupirocin 2% 22 Gm Ointment NASAL SCH ×3 (08:30→20:37)
[2017-03-16] MEDS: Triamcinolone 0.1% 30 Gm Cream TOPICAL SCH ×2 (08:30→20:37)
[2017-03-16] MEDS: Nystatin 100,000 Unit/Gm 15 Gm Powder TOPICAL SCH ×2 (08:30→20:37)
[2017-03-16] MEDS: ARIPiprazole 10 mg Tablet PO SCH (08:43)
[2017-03-16] MEDS: Potassium Chloride 20 mEq SR Tablet PO SCH (08:43)
--- NOTE | 2017-03-16 14:53 | PCM.PNPSY ---
Subjective Date of Service March 16, 2017 Subjective I spent 30 minutes both reviewing treatment plan with clinical team, interviewing the patient and providing supportive/educational psychotherapy. I spent more than 50% of the time counseling the patient. I reviewed the treatment plan with the patient and discussed options available including the potential risks, benefits and side effects. Jaci reports having good thought organization and mood stability. Staff reports that she is hoarding food in her room her cloths and actually stuffs food in her cheeks. She does well unless somebody interferes with what her she wants to do. She is expressing some paranoia that her brother is coming after her. She has poor hygiene and has a difficult time attending to activities of daily living. She does well with redirection and support She has been active and participating well in one-to-one unit and group activities. She slept 5 hours and denies depression manic or psychotic symptoms review. Her house has been condemned by the [facility] but she is unwilling or unable to acknowledge this. She denies medication side effects. Mental Status Exam Appearance: Neat/well groomed Attitude: Pleasant, Cooperative Behavior: Distractible Affect: Well Modulated/Appropriate Mood: Other Thought Process/Associations: Goal Directed (Fairly), Tangential (at times.) Speech Production: Normal Speech Rate: Normal Speech Articulation: Normal Thought Content: Obsessions/compulsions, Perseveration Danger to Self/Suicidal Ideati: None Danger to Others: None Delusions: Paranoid (Endorses) Hallucinations: Auditory (Denies), Visual (Denies) Consciousness: Alert Orientation: Person, Place, Date, Situation Memory: Grossly Intact Estimate Intellectual Function: Average Basis for IQ estimate: Awareness current events Attention/Concentration & Cogn: Impaired Insight: Limited Judgement: Limited Mental Health Plan The patient is a 71-year-old white female, who has been treated it sounds like for bipolar mood disorder and psychosis for several decades by a primary care physician, that she has felt very comfortable with. She has been medication noncompliant and has not taking any medication for several months. For the past six weeks, she reported poor sleep, and family and friends were noticing increasing distractibility and a decreased ability to take care of herself. When police arrived, they noted her apartment was extremely in disarray and that client was delusional, labile and tangential in her speech. She does well unless somebody interferes with what her she wants to do. She is expressing some paranoia that her brother is coming after her. She has poor hygiene and has a difficult time attending to activities of daily living. She does well with redirection and support. Her house has been condemned by the [facility] but she is unwilling or unable to acknowledge this. She denies medication side effects. We are trying to find placement for her in a setting where she can have her medications monitored And have help with activities of daily living. [place] AXIS I Psychosis unspecified Bipolar disorder by history AXIS II Defer. AXIS III 1. Congestive heart failure. 2. Peripheral neuropathy. 3. Lower extremity edema. 4. History of respiratory failure with intubation May 2014. AXIS IV Unknown. AXIS V 35. Medications Gabapentin 300 twice a day, Celexa 20 daily Abilify 20 daily Metoprolol 25 mg daily. Treatments 1. The patient is admitted to the inpatient unit and will be provided a safe and secure environment. 2. The patient is denying current active suicidality and is not in need of a one-to-one at this time. He is agreeing to notify us should he have any acute suicidal or homicidal thoughts. 3. The patient is encouraged to participate with group and milieu activities. 4. The patient will be seen by the treatment team on a daily basis to assess symptoms, side effects and response to treatment. 5. Encourage PO fluids. 6. Anticipated length of stay is 10-14 days. 7. Discharge to assisted care such as [facility] or [facility]. Jose Davies MD March 16, 2017 14:53
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
[2017-03-16 18:11] VITALS: BP 152/53; PULSE 85; RESP 16
--- NOTE | 2017-03-16 18:58 | NUR ---
Observations 0700 - 1900 Pt was labile, anxious, preoccupied. Pt speech was rapid and rambling. Pt eye contact was ok. Pt is pleasant, polite and cooperative. Pt maintained behavior control throughout the shift. Pt attended community meeting and set a daily goal. Pt attended arts and [employer] group. Pt attended meals in D.R. and ate 100% of meals. Pt was observed every 15 minutes throughout the shift as ordered.
[2017-03-16] MEDS: hydrOXYzine Pamoate 25 mg Capsule PO PRN (23:13)
--- NOTE | 2017-03-17 03:20 | NUR ---
Nursing Noc "Can I have some rice krispies and banana for my diverticulitis? Pt awake and in DR at 0300 per routine. Pleasant and cooperative, rambling speech with labile thoughts. Zero actual c/o abdominal pain and zero difficulty with swallowing this shift. Pt on 15 day MRO due to on 03/22. Continuing to monitor mood, behavior, sleep times and emotional state. CP.
[2017-03-17 08:29] VITALS: BP 162/71; PULSE 57; RESP 20
[2017-03-17] MEDS: Triamcinolone 0.1% 30 Gm Cream TOPICAL SCH ×2 (08:30→20:31)
[2017-03-17] MEDS: MeTOProlol XL 25 mg ER24 Tablet PO SCH (08:30)
[2017-03-17] MEDS: Mupirocin 2% 22 Gm Ointment NASAL SCH ×3 (08:30→20:36)
[2017-03-17] MEDS: Nystatin 100,000 Unit/Gm 15 Gm Powder TOPICAL SCH ×2 (08:30→20:30)
[2017-03-17] MEDS: Potassium Chloride 20 mEq SR Tablet PO SCH (08:45)
[2017-03-17] MEDS: ARIPiprazole 10 mg Tablet PO SCH (08:45)
--- NOTE | 2017-03-17 16:33 | NUR ---
Nursing Note [id number] S. "I want to know who told the doctor in writing that I was not clean, that I was dirty and had poor hygiene"? "I will have you know that I bath 10 times a day and I am not dirty"! O. Patient sleeping in front of TV quite a lot today. Did go on the patio for group for a short time. A. Continues to be disorganized, grandiose at times, makes comments of dislike concerning another patient on the unit. P. Monitor for response to treatment. Q 15 min checks for safety. Follow plan of care.
--- NOTE | 2017-03-17 18:58 | NUR ---
manager education/Counselor: S/O: Patient slept 5 hours last night per staff. Patient denies S/I and H/I. She also denies auditory and visual hallucinations. Depression is 0/10 and anxiety is 0/10. A: Patient is cooperative, disheveled, distactible, tangential, paranoid, limited insight, limited judgment. P: Follow care plan, coordinate with out-patient providers.
--- NOTE | 2017-03-17 21:46 | NUR ---
Nursing note evenings S) "my son and I are like brother and sister I had him at such a young age" O) pt enjoyed visit with son, took medications with out problems, social in milieu watching TV, ate meals, no complaints A) cooperative, took medications P) monitor medication effectiveness and encourage participation in treatment
[2017-03-18] MEDS: oxyCODONE-Acetamin 5-325 mg Tablet PO PRN (01:44)
[2017-03-18] MEDS: hydrOXYzine Pamoate 25 mg Capsule PO PRN (01:44)
--- NOTE | 2017-03-18 04:53 | NUR ---
Nursing Noc Pt noted to continue to have limited insight and tangential. Her son Raya stopped by today and reported he has spoken with police r/t patients house. Says he is cleaning in up so patient may go back to her home soon. Patient appeared to have good visit with son. Pt continues to have broken sleep and prefer to rest in DR than in room. Patient noted to be pleasant and cooperative with other patients. Continuing to monitor mood behavior and emotional state. CP.
[2017-03-18] MEDS: Potassium Chloride 20 mEq SR Tablet PO SCH (08:06)
[2017-03-18] MEDS: ARIPiprazole 10 mg Tablet PO SCH (08:07)
[2017-03-18] MEDS: MeTOProlol XL 25 mg ER24 Tablet PO SCH (08:30)
[2017-03-18] MEDS: Mupirocin 2% 22 Gm Ointment NASAL SCH ×3 (08:30→21:10)
[2017-03-18] MEDS: Triamcinolone 0.1% 30 Gm Cream TOPICAL SCH ×2 (08:30→21:13)
[2017-03-18] MEDS: Nystatin 100,000 Unit/Gm 15 Gm Powder TOPICAL SCH ×2 (08:30→21:13)
[2017-03-18 10:19] VITALS: BP 140/63; PULSE 61; RESP 16
--- NOTE | 2017-03-18 11:04 | PCM.PNPSY ---
Subjective Date of Service March 18, 2017 Subjective I spent 30 minutes both reviewing treatment plan with clinical team, interviewing the patient and providing supportive/educational psychotherapy. I spent more than 50% of the time counseling the patient. I reviewed the treatment plan with the patient and discussed options available including the potential risks, benefits and side effects. Jaci reports having good thought organization and mood stability. Staff reports that she is hoarding food in her room, her cloths and actually stuffs food in her cheeks. She does well unless somebody interferes with what her she wants to do. She is expressing some paranoia . Her hygiene has significantly improved but she still has a difficult time attending to activities of daily living. She does well with redirection and support She has been active and participating well in one-to-one unit and group activities. She slept 6 hours and denies depression manic or psychotic symptoms review. Her house has been condemned by the [facility] but she is unwilling or unable to acknowledge this. She denies medication side effects. Mental Status Exam Vital Signs Vital Signs Date Time Temp Pulse Resp B/P Pulse Ox O2 Delivery O2 Flow Rate FiO2 03/18/17 10:19 36.5 61 16 140/63 Appearance: Neat/well groomed Attitude: Pleasant, Cooperative Behavior: Distractible Affect: Well Modulated/Appropriate Mood: Other Thought Process/Associations: Tangential (at times.) Speech Production: Normal Speech Rate: Normal Speech Articulation: Normal Thought Content: Obsessions/compulsions, Perseveration Danger to Self/Suicidal Ideati: None Danger to Others: None Delusions: Paranoid (Endorses) Consciousness: Alert Orientation: Person, Place, Date, Situation Memory: Grossly Intact Estimate Intellectual Function: Average Basis for IQ estimate: Awareness current events Attention/Concentration & Cogn: Impaired Insight: Limited Judgement: Limited Mental Health Plan The patient is a 71-year-old white female, who has been treated it sounds like bipolar mood disorder and psychosis for several decades by a primary care physician that she has felt comfortable with. She has been medication noncompliant and has not taking any medication for several months. For the past six weeks, she reported poor sleep, and family and friends were noticing increasing distractibility and a decreased ability to take care of herself. When police arrived, they noted her apartment was extremely in disarray and that client was delusional, labile and tangential in her speech. Today Jaci reports having good thought organization and mood stability. Staff reports that she is hoarding food in her room, her cloths and actually stuffs food in her cheeks. She does well unless somebody interferes with what her she wants to do. She is expressing some paranoia . Her hygiene has significantly improved but she still has a difficult time attending to activities of daily living. She does well with redirection and support She has been active and participating well in one-to-one unit and group activities. She slept 6 hours and denies depression manic or psychotic symptoms review. Her house has been condemned by the [facility] but she is unwilling or unable to acknowledge this. She denies medication side effects.S We are trying to find placement for her in a setting where she can have her medications monitored And have help with activities of daily living. [place] AXIS I Psychosis unspecified Bipolar disorder by history AXIS II Defer. AXIS III 1. Congestive heart failure. 2. Peripheral neuropathy. 3. Lower extremity edema. 4. History of respiratory failure with intubation May 2014. AXIS IV Unknown. AXIS V 35. Medications Gabapentin 300 twice a day, Celexa 20 daily Abilify 20 daily Metoprolol 25 mg daily. Treatments 1. The patient is admitted to the inpatient unit and will be provided a safe and secure environment. 2. The patient is denying current active suicidality and is not in need of a one-to-one at this time. He is agreeing to notify us should he have any acute suicidal or homicidal thoughts. 3. The patient is encouraged to participate with group and milieu activities. 4. The patient will be seen by the treatment team on a daily basis to assess symptoms, side effects and response to treatment. 5. Encourage PO fluids. 6. Anticipated length of stay is 10-14 days. 7. Discharge to assisted care such as [facility] or senior living care. 8. Patient had a preliminary hearing today for a day MR or LR O hearing for next Tuesday. Jose Davies MD March 18, 2017 11:03
--- NOTE | 2017-03-18 11:28 | NUR ---
Nursing Dayshift: S: "I know how you can get 22 free pizzas! You go to [employer] on [address] at 2:30 in the morning and that's when they through out the pizza's they don't sell." O: Patient talkative on approach. Drowsy this AM. Social with peers and staff. Good appetite at meals. Refused Lisinopril and Metoprolol this AM. BP 140/63, P-61. Showered this AM and has clean change of clothes on per her request "I want to look good in court." Pre-mireles today and will have court this next TuesdayMarch 24. Denies anxiety, depression, harmful thoughts, and hallucinations. A: Talkative. Cheerful. A little drowsy. P: CPOC. Monitor mood and behavior.
--- NOTE | 2017-03-18 17:55 | NUR ---
natural science manager/Counselor: S/O: Patient slept 5 hours last night per staff. Patient denies S/I and H/I. She also denies auditory and visual hallucinations. Depression is 0/10 and anxiety is 0/10. A: Patient is cooperative, disheveled, distactible, tangential, paranoid, limited insight, limited judgment. P: Follow care plan, coordinate with out-patient providers.
--- NOTE | 2017-03-18 20:47 | NUR ---
MHA Note D-Patient attended all structured groups and activities with various levels of contribution. She attended minimal ADLs and appears disheveled. Patient ate all of her meals and snacks. A- Patient spent most of the shift in the common area with peers. She has become close with another woman on the unit and the two have been very bright around each other. She appears flat and sedated. She is irritable occasionally, especially when questioned about hoarding any items from other trays, the kitchenette, or hygiene items. She denies suicidal or homicidal ideation as well as any thought disturbances. P- Continue current treatment plan.
[2017-03-19] MEDS: oxyCODONE-Acetamin 5-325 mg Tablet PO PRN ×2 (03:27→16:41)
--- NOTE | 2017-03-19 05:29 | NUR ---
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 Patient did accept Percocet 5/325 tab 1, then up to dining room for a snack of cereal and banana for her "diverticulosis" Patient is mostly pleasant in conversation and reminiscing about days when she got up early and made biscuits and gravy for her sons. Patient returned to room but remained awake the remainder of shift.
[2017-03-19] MEDS: Triamcinolone 0.1% 30 Gm Cream TOPICAL SCH ×2 (08:20→20:28)
[2017-03-19] MEDS: MeTOProlol XL 25 mg ER24 Tablet PO SCH ×2 (08:20→08:26)
[2017-03-19] MEDS: ARIPiprazole 10 mg Tablet PO SCH (08:20)
[2017-03-19] MEDS: Potassium Chloride 20 mEq SR Tablet PO SCH (08:20)
[2017-03-19] MEDS: Mupirocin 2% 22 Gm Ointment NASAL SCH ×3 (08:20→20:28)
[2017-03-19] MEDS: Nystatin 100,000 Unit/Gm 15 Gm Powder TOPICAL SCH ×2 (08:21→20:28)
[2017-03-19 10:05] VITALS: BP 120/60; PULSE 55; RESP 16
--- NOTE | 2017-03-19 17:52 | NUR ---
Nursing Note Day Shift S Patient told this insurance underwriter that she had renters that had an TATO machine in the living room and brandy guns laying around O: . Pt spent a great deal of time in the outdoor courtyard enjoying the sun. Pt participated in group today. Pt very interactive with staff and other patients. A: Pt refused her heart medicine today, metoprolol. Pt having disorganized thoughts, very talkative and friendly. Pt asks for hugs from the insurance underwriter today. Denies depression or anxiety. Denies any SI or HI. P Follow plan of care, monitor behaviors. Monitor for side effects
[2017-03-19] MEDS: hydrOXYzine Pamoate 25 mg Capsule PO PRN (20:28)
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
[2017-03-20] MEDS: oxyCODONE-Acetamin 5-325 mg Tablet PO PRN (00:01)
--- NOTE | 2017-03-20 00:34 | NUR ---
Nursing NOC 7p-7a [place] [facility] [place] [facility] [place] [facility] the [place]. Participated in evening group. Watched a movie with peers. PT is very pleasant, but delusional and thought process is not organized. PT had delusions of grandeur when speaking about her "inheritances and trips to the [facility] where she spent 'wods' of money at the [employer]." PT answers all mentation questions appropriately. PT applied her HS creams supervised. PT reports generalized pain at a 9/10 and received ibuprofen and then a percocet with good relief. PRN vistaril given for itching. PT went to sleep around 0000. WIll CTM.
[2017-03-20] MEDS: ARIPiprazole 10 mg Tablet PO SCH (07:51)
[2017-03-20] MEDS: Potassium Chloride 20 mEq SR Tablet PO SCH (07:51)
[2017-03-20] MEDS: Nystatin 100,000 Unit/Gm 15 Gm Powder TOPICAL SCH ×2 (07:52→20:50)
[2017-03-20] MEDS: Mupirocin 2% 22 Gm Ointment NASAL SCH ×3 (07:52→20:49)
[2017-03-20] MEDS: MeTOProlol XL 25 mg ER24 Tablet PO SCH (07:52)
[2017-03-20] MEDS: Triamcinolone 0.1% 30 Gm Cream TOPICAL SCH ×2 (07:53→20:49)
[2017-03-20 09:15] VITALS: BP 147/48; PULSE 53; RESP 18
--- NOTE | 2017-03-20 18:02 | NUR ---
Nursing Note Dayshift S . "Give me some hugs sunshine." O: . Pt spent a great deal of time in the outdoor courtyard enjoying the sun. Pt participated in group today. Pt very interactive with staff and other patients. A: Pt refused her heart medicine today, metoprolol. Pt having disorganized thoughts, very talkative and friendly. Denies depression or anxiety. Denies any SI or HI. Pt is pleasant and cooperative P Follow plan of care, monitor behaviors. Monitor for side effects
--- NOTE | 2017-03-20 18:40 | NUR ---
Observations [id number] Pt social on the unit, participating in group, going outside on the patio and watching movies with peers. Pt changed clothing multiple times throughout the day. She shared with this food writer that their are hundreds of rubies, sapphires and emeralds buried under her home. She also stated that she's not sure why she is here because "I passed the psych test". Pt states she misses her cats and her sugar bushes. She attended all meals, eating 100%. Pt was observed every 15 minutes of shift as directed.
--- NOTE | 2017-03-20 20:29 | PCM.PNPSY ---
Subjective Date of Service March 20, 2017 Subjective The patient reports that she is tired this morning but otherwise doing well. The patient was noted to be snoring prior to interview and we discussed using a wedge to help with sleep posture. Patient focused on clothes and style, still with raspberry crystal light dye in hair. Concerned about fungal toenail that will eventually need to be removed. 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 Discussed increasing aripiprazole to 30mg and patient agreeable. No side effects except sedation. Sleep: 4.5 hours+ Appetite: "hungry all the time." Suicidal and homicidal ideation: denies Auditory hallucinations: denies Visual hallucinations: denies Other Psychotic Symptoms: some paranoia still present Anxiety: 0/10 Depression: 0/10 Mental Status Exam Appearance: Neat/well groomed Attitude: Pleasant, Cooperative Behavior: Distractible Affect: Well Modulated/Appropriate Mood: Other Thought Process/Associations: Tangential (at times.) Speech Production: Normal Speech Rate: Normal Speech Articulation: Normal Thought Content: Perseveration Danger to Self/Suicidal Ideati: None Danger to Others: None Delusions: Paranoid (Endorses) Hallucinations: Auditory (Denies), Visual (Denies) Consciousness: Alert Orientation: Person, Place, Date, Situation Memory: Grossly Intact Estimate Intellectual Function: Average Basis for IQ estimate: Awareness current events Attention/Concentration & Cogn: Impaired Insight: Limited Judgement: Limited Mental Health Plan The patient is a 71-year-old white female, who has been treated for bipolar disorder and psychosis for several decades by her primary care physician. She has been medication noncompliant and has not been taking any medication for several months. For the six weeks prior to admission, she had been experiencing poor sleep, and family and friends were noticing increasing distractibility and a decreased ability to take care of herself. When police arrived, they noted her home was in severe disarray and that it could no longer be inhabited. On admission, the patient was noted to be delusional, labile and tangential in her speech. On the unit, the patient has been bright and pleasant and reported that the insects in her blood were gone. Although having underlying delusions, she is able to focus on discharge planning. She is agreeable to increasing aripiprazole. [place] AXIS I Psychosis unspecified vs. Schizoaffective disorder, bipolar type AXIS II Defer. AXIS III 1. Congestive heart failure. 2. Peripheral neuropathy. 3. Lower extremity edema. 4. History of respiratory failure with intubation May 2014. AXIS IV Unknown. AXIS V 35. Medications Abilify 20mg daily Citalopram 20mg daily Ferrous Gluconate 324mg po bid Gabapentin 300mg twice a day, Potassium chloride 20meq po daily Lisinopril 10mg po daily Metoprolol 25 mg daily. Treatments 1. The patient is admitted to the inpatient unit and will be provided a safe and secure environment. 2. The patient is denying current active suicidality and is not in need of a one-to-one at this time. He is agreeing to notify us should he have any acute suicidal or homicidal thoughts. 3. The patient is encouraged to participate with group and milieu activities. 4. The patient will be seen by the treatment team on a daily basis to assess symptoms, side effects and response to treatment. 5. Increase aripiprazole to 30mg and move to night time. 6. Awaiting discharge options to assisted care such as [facility] or family home. 7. Patient had a preliminary hearing today for a 90 day MR or LRO hearing. 8. Anticipated length of stay is 10-14 days. Tuan Barragan MD March 20, 2017 20:29
[2017-03-20] MEDS ORDERED: ARIPiprazole 10 mg Tablet PO ONE (21:00)
[2017-03-21] MEDS: Mupirocin 2% 22 Gm Ointment NASAL SCH ×3 (08:59→20:03)
[2017-03-21] MEDS: Potassium Chloride 20 mEq SR Tablet PO SCH (09:00)
[2017-03-21] MEDS: Triamcinolone 0.1% 30 Gm Cream TOPICAL SCH ×2 (09:01→20:02)
[2017-03-21] MEDS: MeTOProlol XL 25 mg ER24 Tablet PO SCH (09:01)
[2017-03-21] MEDS: Nystatin 100,000 Unit/Gm 15 Gm Powder TOPICAL SCH ×2 (09:02→20:02)
[2017-03-21] MEDS: oxyCODONE-Acetamin 5-325 mg Tablet PO PRN (11:05)
--- NOTE | 2017-03-21 16:37 | NUR ---
Shift Note 7a-7p Pt. has been pleasant and cooperative today. Denies feeling anxious or depressed. Denies hallucinations or thoughts of harm to self or others. Has been active today, walking the halls and spending lots of time tanning in the courtyard. Uses crystal light and marker for hair dye and lipstick.
[2017-03-21 17:05] VITALS: BP 162/61; PULSE 66; RESP 16
--- NOTE | 2017-03-21 17:42 | PCM.PNPSY ---
Subjective Date of Service March 21, 2017 Subjective The patient reported that she was coughing and was observed coughing or throwing up into the garbage can in the day room. The patient quickly recovered and following lunch stated that she needed an antibiotic for her pneumonia. She denied shortness of breath and she was afebrile. She stated she had been on multiple antibiotics following her severe lung infection several years ago. The patient was assessed by the resident who found no acute pulmonary findings. The patient reported that most of her injuries resulting from the "aphids" and "fleas." She was still requesting B12 injection as she had had these in the past. She reported her sedation was improved. The patient did receive a wedge for her bed and reported that she slept better. Patient still with raspberry crystal light dye in hair. Concerned about fungal toenail that will eventually need to be removed. Patient later provided each member of the treatment team with a glass of raspberry Crystal light. Patient noted no side effects from increased aripiprazole. Sleep: 4.5 hours+, patient reports 6.5 hours Appetite: "Good." Suicidal and homicidal ideation: denies Auditory hallucinations: denies Visual hallucinations: denies Other Psychotic Symptoms: some paranoia still present Anxiety: 0/10 Depression: 0/10 Current Medications Current Medications Aripiprazole 10 mg HS ONCE PO Last administered on 03/20/17t 21:50; Admin Dose 10 MG; Start 03/20/17 at 21:00; Stop 03/20/17 at 21:01; Status DC Mental Status Exam Vital Signs Vital Signs Date Time Temp Pulse Resp B/P Pulse Ox O2 Delivery O2 Flow Rate FiO2 03/21/17 17:05 36.3 66 16 162/61 Appearance: Neat/well groomed Attitude: Pleasant, Cooperative Behavior: Distractible Affect: Well Modulated/Appropriate Mood: Other Thought Process/Associations: Tangential (at times.) Speech Production: Normal Speech Rate: Normal Speech Articulation: Normal Thought Content: Perseveration Danger to Self/Suicidal Ideati: None Danger to Others: None Delusions: Paranoid (Endorses) Hallucinations: Auditory (Denies), Visual (Denies) Consciousness: Alert Orientation: Person, Place, Date, Situation Memory: Grossly Intact Estimate Intellectual Function: Average Basis for IQ estimate: Awareness current events Attention/Concentration & Cogn: Impaired Insight: Limited Judgement: Limited Mental Health Plan The patient is a 71-year-old white female, who has been treated for bipolar disorder and psychosis for several decades by her primary care physician. She has been medication noncompliant and has not been taking any medication for several months. For the six weeks prior to admission, she had been experiencing poor sleep, and family and friends were noticing increasing distractibility and a decreased ability to take care of herself. When police arrived, they noted her home was in severe disarray and that it could no longer be inhabited. On admission, the patient was noted to be delusional, labile and tangential in her speech. On the unit, the patient has been bright and pleasant and reported that the insects in her blood were gone. Although having underlying delusions, she is able to focus on discharge planning and would still like to go to adult family home. She is noting no problems from increased aripiprazole. The hospitalist was called regarding her production of sputum and lower extremity edema and indicated that they would be following up with the patient. [place] AXIS I Psychosis unspecified vs. Schizoaffective disorder, bipolar type AXIS II Defer. AXIS III 1. Congestive heart failure. 2. Peripheral neuropathy. 3. Lower extremity edema. 4. History of respiratory failure with intubation May 2014. AXIS IV Unknown. AXIS V 35. Medications Abilify 30mg daily Citalopram 20mg daily Ferrous Gluconate 324mg po bid Gabapentin 300mg twice a day, Potassium chloride 20meq po daily Lisinopril 10mg po daily Metoprolol 25 mg daily. Treatments 1. The patient is admitted to the inpatient unit and will be provided a safe and secure environment. 2. The patient is denying current active suicidality and is not in need of a one-to-one at this time. He is agreeing to notify us should he have any acute suicidal or homicidal thoughts. 3. The patient is encouraged to participate with group and milieu activities. 4. The patient will be seen by the treatment team on a daily basis to assess symptoms, side effects and response to treatment. 5. Continue current medications. 6. B12 1000 g IM every 30 days. 7. Awaiting discharge options to assisted care such as [facility] or family home. 8. Internal medicine consult requested 9. Anticipated length of stay is 10-14 days. . Tuan Barragan MD March 21, 2017 17:41
[2017-03-21 18:14] LABS: BASOPHILS % (AUTO) 0.6 % (0-3); EOSINOPHILS % (AUTO) 5.8 % (0-5); MONOCYTES % (AUTO) 7.1 % (4-12); Mean Corpuscular Hemoglobin 31.4 pg (27.0-35.0); Mean Corpuscular Volume 96.8 fL (81-100); NEUTROPHILS % (AUTO) 65.8 % (40-74); Platelet Count 213 bil/L (150-400)
--- NOTE | 2017-03-21 18:20 | NUR ---
Observations [id number] Pt friendly and active on unit. Pt talked with her son in the phone in the morning, spent time on the patio and participated in Community Meeting. Pt attended all meals, eating an average of 75%. Pt isolated more today then in previous days. She was observed every 15 minutes of shift as directed.
--- NOTE | 2017-03-21 21:05 | PCM.HPMED ---
Subjective Date of Service March 21, 2017 Primary Provider: Admitting Physician: Jose Davies MD Primary Care Physician: [facility] Attending Physician: Jose Davies MD Chief Complaint: cough, peripheral neuropathy History of Present Illness: The patient reported to Dr. Edouard that she was coughing and was observed coughing or throwing up into the garbage can in the day room. The patient quickly recovered and following lunch stated that she needed an antibiotic for her pneumonia. She denied shortness of breath and she was afebrile. She stated she has blood leaking from her nose and ears onto her pillow.. Concerned about fungal toenail that will eventually need to be removed. She states that she has never been a smoker. She is not dyspneic has no exertional dyspnea but says she has too much mucus and finding it difficult to swallow. when asked about her biggest problem or issue with regards to her health she stated that she would like to feel her legs once again. Primary team has ordered CBC and comp and these labs look fairly unremarkable. Reviewed an echocardiogram from 03/15/16 which showed ejection fraction of 40%, moderate CVAT tricuspid regurgitation, severe mitral regurgitation and worsened right ventricular delay dilation Review of Systems: Gen.: No weight gain patient has not been having fevers and malaise Eyes: no visual disturbances or blurring vision HEENT: Endorsing/throat drainage, endorsing bloody urine discharge, she has no hearing loss Lymph: No lymph nodes noted Cardiac: No chest pain, orthopnea, PND, palpitations , pedal edema or dyspnea on exertion Pulmonary: wheezing or bringing up of sputum + worsening dyspnea and cough, left-sided chest pain GI: No anorexia nausea vomiting blood or black in the stool : no dysuria hematuria urinary frequency or decrease in urine output Musculoskeletal: Joint swelling no joint pain no new muscle aches or back pain Neuro: No syncope, seizures no loss of consciousness no new focal weakness, positive for numbness or tingling in legs Endocrine: No new heat or cold intolerances polyuria or polydipsia Hematology: No lymphadenopathy or easy bleeding or bruising noted skin: No new rashes, positive for stasis dermatitis On review of systems negative except as stated in the history of present illness and above Allergies Coded Allergies: nicotine (Verified Allergy, Intermediate, Rash,Itching,SOB, 10/01/16) Sulfa (Sulfonamide Antibiotics) (Verified Allergy, Unknown, 10/01/16) codeine (Verified Allergy, Unknown, 10/01/16) TAKES VICODIN AT HOME PMH Social History Hx Alcohol Use: Yes Hx Substance Use: Yes Hx Tobacco Use: No Smoking Status: Current Some Day Smoker Exam Vital Signs Vital Sign - Last Date Time Temp Pulse Resp B/P Pulse Ox O2 Delivery O2 Flow Rate FiO2 03/21/17 17:05 36.3 66 16 162/61 Exam Gen.: No acute distress very pleasant HEENT: Normocephalic, atraumatic, large tongue Mallampati 2 throat Neck: Positive for JVD on the right side Heart: Regular rate and rhythm no S3-S4 murmurs Lungs: Clear to auscultation no crackles or wheezes Abdomen: Soft nondistended mild right lower quadrant pain, normal bowel sounds Extremities: +1+ edema bilaterally, but hemosiderin deposits from venous stasis Vascular: Pedal pulses are palpable Neuro: No focal deficits Psych:: Tangential speech pattern, affect pleasant mood neutral Lab and Diagnostics Result Diagram: 03/21/17180803/21/171808 Assessment & Plan Assessment #1 cough: She is in no acute respiratory distress at the time of this visit -- Respiratory viral panel is ordered -- BNP is ordered -- We will consider an echo if indicated Assessment #2: Vomiting -- No reported further events -- CMP CBC stable -- Continue to monitor Peripheral neuropathy -- A1c, vitamin B-12, ferritin are ordered Acute bleeding from the ears: -- We will examined with an otoscope upon next visit Hypertension: -- She might need medication titration, blood pressure is slightly elevated Onychomycosis, chronic: -- Toenail infections are recently difficult to treat -- May consider Lamisil for 3 months, she will need regular LFT. It is unclear even this will help her considering her extensive disease -- We will consider podiatry consult Time spent 40 minutes Erika Hoffmann DO March 21, 2017 21:05
--- NOTE | 2017-03-22 05:16 | NUR ---
Pt was mostly pleasant and cooperative with staff. Though conversation with pt was minimal, it was far more intelligible and easier to follow than previous encounters with this pt. Pt has an issue with going into other pt rooms despite being told that it is not allowed. Another issue was with pt trading articles of clothing with another pt, other pt now wants her red dress returned and this pt does not want to return it. Pt was up late, restless at times throughout the night, and woke early. Maintained Q15 checks for safety as directed.
[2017-03-22 08:30] VITALS: BP 181/87; PULSE 57; RESP 18
[2017-03-22] MEDS: Potassium Chloride 20 mEq SR Tablet PO SCH (08:30)
[2017-03-22] MEDS: MeTOProlol XL 25 mg ER24 Tablet PO SCH (08:30)
--- NOTE | 2017-03-22 08:47 | DRSVH ---
PROCEDURE: X-RAY CHEST ONE VIEW ([id number]) INDICATIONS: concern for CHF TECHNIQUE: One view of the chest was acquired. COMPARISON: [facility], CR, XR CHEST 1VW (PORTABLE), 07/21/2015, 9:17. [facility], [facility] CHEST [facility], 09/09/2014, 11:02. FINDINGS: Surgical changes and devices: None. Lungs and pleura: Diffuse, widespread bilateral interstitial opacities are present suspicious for pul monary edema likely related to CHF given the cardiomegaly present. No pneumothorax or pleural fluid collections. Mediastinum: Mediastinal contours appear normal. Heart size is enlarged. Bones and chest wall: No suspicious bony lesions. Overlying soft tissues appear unremarkable. IMPRESSION: Diffuse interstitial opacities and cardiomegaly suggesting developing CHF. Atypical pneu monia cannot be excluded. Dictated by: Melquiades Escalante [facility] Interpreted: Edith Ramos MD on 03/22/2017 at 8:44 Transcribed by: JESÚS on 03/22/2017 at 8:46 Approved by: Edith Ramos MD, PhD on 03/22/2017 at 11:16
--- NOTE | 2017-03-22 09:29 | NUR ---
Re; CXRAY: Pt woke slowly and cooperatevl
[2017-03-22] MEDS: Mupirocin 2% 22 Gm Ointment NASAL SCH ×3 (10:14→20:57)
[2017-03-22] MEDS: Triamcinolone 0.1% 30 Gm Cream TOPICAL SCH ×2 (10:15→20:57)
[2017-03-22] MEDS: Nystatin 100,000 Unit/Gm 15 Gm Powder TOPICAL SCH ×2 (10:15→20:55)
--- NOTE | 2017-03-22 12:12 | NUR ---
Evaluation completed. Please go to "Notes" then click on "Assessments and Notes" (bottom left corner of screen). Then select appropriate discipline tab on top of screen.
--- NOTE | 2017-03-22 14:14 | NUR ---
Nsng note: Chest xray Pt was wakened this am for cxray and she was pleasant and cooperative with this. She also had a swallow evaluation and the therapist says she did well and thinks it' may be more a drainage issue as opposed to mechanical(see her note) Describes her mood as 'happy and elatious. I'm always happy and ready" When asked what got her here, says "the [facility] [place] want [place]. My shrink got into my house and the color finisher came in and brought me to the emergency room." Her speech is pressured and thoughts are tangential. She is social with peers and participating in grops. She refused her Lasix and Lisinopril this am. She denies any thought disturbance
--- NOTE | 2017-03-22 16:03 | NUR ---
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 I have 156 cats and 470 rosebushes, so I'm always happy, because of my ashley." O: Patient had no SI or HI, no auditory or visual hallucinations. She stated that she is never depressed, but always happy, and her level of anxiety is at 0. Her mood was happy and chatty, and she stated that she slept well. A: Patient was happy to talk and wanted to continue chatting. She talked about her roses and her cats, and was happy to answer any questions. She spoke about her ashley, stated that that is what kept her in a good mood. P: Follow up with care plan and coordinate with outpatient providers.
--- NOTE | 2017-03-22 16:13 | PCM.PNPSY ---
Subjective Date of Service March 22, 2017 Subjective The patient reports that she is "going really good except there are a couple of yellers." She stated that she would like more pain medication and she has been receiving. She reports she slept last night from 8 PM to 2:30 AM and again from 3:30 AM to 6:30 AM. She reports that overall she is sleeping better with the wedge under her pillows. The patient is reporting increased numbness and pain in her feet and would like to increase Neurontin. The patient refused both lisinopril and furosemide as she does not like having to urinate frequently although the furosemide is only a one-time dose. The patient reported that she liked working with Dr. Hoffmann and look forward to seeing her again. Patient noted no side effects from increased aripiprazole. Sleep: 3.5 hours+, patient reports 6.5 hours Appetite: "Good." Suicidal and homicidal ideation: denies Auditory hallucinations: denies Visual hallucinations: denies Other Psychotic Symptoms: some paranoia still present but appears reduced Anxiety: 0/10 Depression: 0/10 Current Medications Current Medications Aripiprazole 10 mg HS ONCE PO Last administered on 03/20/17 21:50; Admin Dose 10 MG; Start 03/20/17 at 21:00; Stop 03/20/17 at 21:01; Status DC Aripiprazole 30 mg HS PO Last administered on 03/21/17 20:01; Admin Dose 30 MG ; Start 03/21/17 at 21:00 Vitamin A/Vitamin D/Cyanocobalamin 1,000 mcg Q30D IM Last administered on 20:01; Admin Dose 1,000 MCG; Start 03/21/17 at 17:45 Mental Status Exam Appearance: Neat/well groomed Attitude: Pleasant, Cooperative Behavior: Distractible Affect: Well Modulated/Appropriate Mood: Other Thought Process/Associations: Tangential (at times.) Speech Production: Normal Speech Rate: Normal Speech Articulation: Normal Thought Content: Perseveration Danger to Self/Suicidal Ideati: None Danger to Others: None Delusions: Paranoid (mild) Hallucinations: Auditory (Denies), Visual (Denies) Consciousness: Alert Orientation: Person, Place, Date, Situation Memory: Grossly Intact Estimate Intellectual Function: Average Basis for IQ estimate: Awareness current events Attention/Concentration & Cogn: Impaired Insight: Limited Judgement: Limited Result Diagram: 5/29/17 1809 5/29/17 1809 Mental Health Plan The patient is a 71-year-old white female, who has been treated for bipolar disorder and psychosis for several decades by her primary care physician. She has been medication noncompliant and has not been taking any medication for several months. For the six weeks prior to admission, she had been experiencing poor sleep, and family and friends were noticing increasing distractibility and a decreased ability to take care of herself. When police arrived, they noted her home was in severe disarray and that it could no longer be inhabited. On admission, the patient was noted to be delusional, labile and tangential in her speech. On the unit, the patient has been bright and pleasant and reported that the insects in her blood were gone. She reports that she is having increased pain and would like to try a higher dose of Neurontin. The patient refused the one- time order of Lasix and will try again. She appears to be responding to an increased dose and aripiprazole with improved organization and decreased paranoia. [place] AXIS I Psychosis unspecified vs. Schizoaffective disorder, bipolar type AXIS II Defer. AXIS III 1. Congestive heart failure. 2. Peripheral neuropathy. 3. Lower extremity edema. 4. History of respiratory failure with intubation May 2014. AXIS IV Unknown. AXIS V 35. Medications Abilify 30mg daily Citalopram 20mg daily Ferrous Gluconate 324mg po bid Gabapentin 300mg twice a day, Potassium chloride 20meq po daily Lisinopril 10mg po daily Metoprolol 25 mg daily. Treatments 1. The patient is admitted to the inpatient unit and will be provided a safe and secure environment. 2. The patient is denying current active suicidality and is not in need of a one-to-one at this time. He is agreeing to notify us should he have any acute suicidal or homicidal thoughts. 3. The patient is encouraged to participate with group and milieu activities. 4. The patient will be seen by the treatment team on a daily basis to assess symptoms, side effects and response to treatment. 5. Continue current medications. 6. Appreciate internal medicine consult and will attempt to have patient take furosemide again. 7. Awaiting discharge options to assisted care such as [facility] or family home. 8. Anticipated length of stay is 10-14 days. . Tuan Barragan MD March 22, 2017 16:13
--- NOTE | 2017-03-22 17:04 | NUR ---
Obs Dayshift Pt appears less restless and pressured today, but continues to be confused, slow and slightly unsteady. Pt is taking short naps in the afternoon, attends groups w/ min. participation. Pt is calm and appropriate w/ peers and staff, with little direction from staff. Pt is engaging well w/ peers and staff. Continues to tong. Good meals, Ok ADL's
--- NOTE | 2017-03-22 17:36 | PCM.PNMED ---
Subjective Date of Service March 22, 2017 Subjective Patient is seen and examined. Staff tell me that patient did not want to go for a new echocardiogram, she denies saying so. She states that she can walk 6 labs in the psych unit without running short of breath. Complains of sinus pain and left ear pain. She initially did not want to take Lasix, but after Dr. Edouard talked to her she did. No other concerns Exam Vital Signs Vital Sign - Last Date Time Temp Pulse Resp B/P Pulse Ox O2 Delivery O2 Flow Rate FiO2 03/22/17 08:30 36.8 57 18 181/87 Exam Gen.: No acute distress HEENT: Erythematous left ear tympanic membrane, no effusion noted in either ear. Negative for pain with the maxillary and frontal sinus tapping Mouth: Negative for pharyngeal erythema and exudates Lymphatics:: Palpable submental mandibular lymphadenopathy on the left side Heart: Soft systolic murmur, without radiation. No S3-S4 murmurs Neck: Positive for right-sided JVD Lungs: Mild bilateral lower lobe crackles, no increased work of breathing, no pleuritic pain Extremities: Mild edema is present Abdomen: Nondistended, nontender soft Neurological: No focal deficits Psych: Negative for anxiety, affect is pleasant IVs and Medications IV Fluids None Medications Reviewed: Medications were reviewed in detail Lab and Diagnostics Microbiology 03/22/17 Adenovirus DNA (PCR), Received Pending 03/22/17 Coronavirus 229E PCR, Received Pending 03/22/17 Coronavirus HKU1 PCR, Received Pending 03/22/17 Coronavirus NL63 PCR, Received Pending 03/22/17 Coronavirus OC43 PCR, Received Pending 03/22/17 Influenza Type A (PCR), Received Pending 03/22/17 Influenza Type B (PCR), Received Pending 03/22/17 Human Metapneumovirus (PCR) (ORIANA), Received Pending 03/22/17 Rhinovirus (PCR)(ORIANA), Received Pending 03/22/17 Parainfluenza Virus Type 1 (PCR), Received Pending 03/22/17 Parainfluenza Virus Type 2 (PCR), Received Pending 03/22/17 Parainfluenza Virus Type 3 (PCR), Received Pending 03/22/17 Parainfluenza Virus Type 4 (NAAT), Received Pending 03/22/17 Respiratory Syncytial Virus (PCR)AL, Received Pending 03/22/17 Chlamydia pneumoniae (PCR), Received Pending 03/22/17 Mycoplasma pneumoniae DNA Detection, Received Pending Result Diagram: 03/21/17 18003/21/17 180 X-Rays, CTs and MRIs PROCEDURE: X-RAY CHEST ONE VIEW ([id number]) INDICATIONS: concern for CHF IMPRESSION: Diffuse interstitial opacities and cardiomegaly suggesting developing CHF. Atypical pneumonia cannot be excluded. Dictated by: Melquiades Escalante RRA Interpreted: Edith Ramos MD on 03/22/2017 at 8:44 Transcribed by: JESÚS on 03/22/2017 at 8:46 Approved by: Edith Ramos MD, PhD on 03/22/2017 at 11:16 Assessment & Plan Acute otitis media left ear: -- Patient is started on Augmentin Acute sinusitis: -- Patient is started on Augmentin -- Resp PNL ordered, pending result Chronic heart failure secondary to severe mitral regurgitation vs Right sided heart failure likley due to ALECIA: -- Reviewed the CXR myself. Shows cardiomegaly and mild congestion. -- She is not in acute CHF exacerbation. this appears to be chronic. -- The patient is given a one-time dose of 40 mg by mouth Lasix -- She is started on 20 mg daily Lasix by mouth -- She is encouraged to undergo an echocardiogram -- Daily weights, accurate I&O -- She will need an outpatient cardiology consult and discharge. We will consult them sooner if echo shows findings that warrant a consult. Assessment #2: Vomiting -- No reported further events -- CMP CBC stable -- Continue to monitor Peripheral neuropathy -- A1c, vitamin B-12, ferritin are ordered: A1C is pending, other two labs WNL Hypertension: -- Patient is started on Lasix -- We will consider adding other antihypertensives if blood pressure continues to be high Dysphagia: -- Speech therapy is consulted, they recommended controlling mucus. Possible barium swallow. Onychomycosis, chronic: -- Toenail infections are recently difficult to treat -- May consider Lamisil for 3 months, she will need regular LFT. It is unclear even this will help her considering her extensive disease -- We will consider podiatry consult Resuscitation Status: CPR: Attempt Resuscitation Time spent 30 min Erika Hoffmann DO March 22, 2017 17:36
[2017-03-22] MEDS: Amoxicillin-Clav 875-125 mg Tablet PO SCH (20:54)
[2017-03-22] MEDS: guaiFENesin 600 mg ER12 Tablet PO SCH (20:54)
[2017-03-22 22:07] LABS: Hemoglobin A1C 5.4 % (4.8-5.6)
--- NOTE | 2017-03-22 23:16 | NUR ---
Behavior P: Pt c/o sores on her feet. I: Applied medicated cremes as prescribed. E: Pt states she feels better. Will cont to monitor
[2017-03-23] MEDS: hydrOXYzine Pamoate 25 mg Capsule PO PRN (05:47)
[2017-03-23] MEDS: Triamcinolone 0.1% 30 Gm Cream TOPICAL SCH ×2 (08:30→20:01)
[2017-03-23] MEDS: Nystatin 100,000 Unit/Gm 15 Gm Powder TOPICAL SCH ×2 (08:30→20:00)
[2017-03-23] MEDS: Mupirocin 2% 22 Gm Ointment NASAL SCH ×3 (08:30→20:01)
[2017-03-23] MEDS: Amoxicillin-Clav 875-125 mg Tablet PO SCH ×2 (08:44→21:18)
[2017-03-23] MEDS: guaiFENesin 600 mg ER12 Tablet PO SCH ×2 (08:45→21:19)
[2017-03-23] MEDS: MeTOProlol XL 25 mg ER24 Tablet PO SCH (08:48)
[2017-03-23] MEDS: Potassium Chloride 20 mEq SR Tablet PO SCH (08:48)
[2017-03-23 09:23] VITALS: BP 144/67; PULSE 60; RESP 16
--- NOTE | 2017-03-23 11:21 | DRSVH ---
[facility] [address] [place] [address] Echocardiogram Report Name: TOM DUENAS MStudy Date: 03/23/2017 Height: 63 in Hospital Exam Location: [facility] Weight: 159 lb Gender: Female BSA: 1.8 m2 : 1945 Age: 71 yrs BP: 181/87 mmHg Reason For Study: CHF, Mitral/tricuspid valvulopathy Performed By: Carrie Marie Referring Physician: BEBE ARROYO Interpretation Summary The left ventricle is normal in size. Left ventricular wall thickness is mildly increased. Left ventricular ejection fraction is estimated to be .45. Compared to the prior exam, left ventricular function is moderately improved. There is mild global hypokinesis of the left ventricle. The right ventricle is grossly normal size. Right ventricular systolic function is mildly reduced. There is moderate to severe mitral regurgitation. There is mild tricuspid regurgitation. The right ventricular systolic pressure is estimated at 26 mmHg assuming a right atrial pressure of 3 mm Hg. Compared to the prior echo exam, there has been a decrease in TR severity. Procedure: A two-dimensional transthoracic echocardiogram with color flow and Doppler was performed. The study quality was technically good. Comparison is made with the echocardiogram of 03/15/2016. The patient was in sinus rhythm with a heart rate of 50 bpm. Left Ventricle: The left ventricle is normal in size. Left ventricular wall thickness is mildly increased. Left ventricular ejection fraction is estimated to be .45. Compared to the prior exam, left ventricular function is moderately improved. There is mild global hypokinesis of the left ventricle. Assessment of diastolic parameters indicates a relaxation abnormality of the left ventricle, consistent with normal filling pressures. Right Ventricle: The right ventricle is grossly normal size. Right ventricular systolic function is mildly reduced. Atria: Borderline left atrial enlargement. Right atrial size is normal. The interatrial septum is intact with no evidence for an atrial septal defect. Mitral Valve: The mitral valve leaflets appear mildly thickened, but open well. There is mild mitral annular calcification. There is moderate to severe mitral regurgitation. Aortic Valve: The aortic valve is trileaflet. The aortic valve opens well. The aortic valve is slightly calcified. There is trace aortic regurgitation. Tricuspid Valve: The tricuspid valve is normal in structure and function. There is mild tricuspid regurgitation. The right ventricular systolic pressure is estimated at 26 mmHg assuming a right atrial pressure of 3 mm Hg. Compared to the prior echo exam, there has been a decrease in TR severity. Pulmonic Valve: The pulmonic valve is normal in structure and function. There is trace pulmonic regurgitation. Great Vessels: The aortic root is normal size. The ascending aorta is normal in size. The IVC is of normal diameter and collapses greater than 50% with a sniff. This suggests a low right atrial pressure of 3 mm Hg. Pericardium/ Pleura There is no pericardial effusion. There is no pleural effusion. MMode/2D Measurements & Calculations LVIDd: 5.4 cm RA long axis LVOT diam LVIDs: 3.9 cm LA A2 area: 21.9 cm FS: 27.4 % LA A4 area: 18.7 cm RA area Ao root diam EPSS: 0.98 cm LA length (vol): 5.3 cm IVSd: 1.3 cm LA vol: 65.9 ml : 16.6 cm asc Aorta LVPWd: 1.1 cm LA vol index RA vol: 46.4 mlDiam: 3.5 cm RA : 37.6 ml/m2 : 26.4 mm2 LV marie. diameter/BSA LV sys. diameter/BSA TAPSE: 1.9 cm (cm/m^2): 3.1 (cm/m^2): 2.2 Doppler Measurements & Calculations Ao V2 max: 98.0 cm/sec MV E max franklin MV E/A: 1.2 TR max franklin Ao max P.8 mmHg : 68.0 cm/sec Med Peak E' Franklin : 243.5 cm/sec Ao mean P.5 mmHg MV A max franklin TR max PG LVOT Max Franklin : 56.7 cm/sec E/E' med: 13.2 : 23.7 mmHg : 91.7 cm/sec Lat Peak E' Franklin PA V2 max MYKEL(I,D): 3.3 cm : 70.6 cm/sec sev ratio: 0.91 E/E' lat: 9.7 PA mean PG E/e' average : 1.1 mmHg MV dec time: 0.21 sec Ao V2 mean LV V1 max PG PA V2 mean : 77.2 cm/sec : 49.8 cm/sec Ao V2 VTI LV V1 VTI: 22.0 cmPA pr(Accel) : 16.1 mmHg MYKEL(V,D): 3.5 cm2 MYKEL indexed to BSA (cm^2/m^2): 1.9 Electronically signed by: Austin Darnell on Reading Physician:03/23/2017 11:20 AM
[2017-03-23 11:35] VITALS: BP 134/71; PULSE 56
[2017-03-23] MEDS: oxyCODONE-Acetamin 5-325 mg Tablet PO PRN (13:25)
[2017-03-23] MEDS: Benzocaine-Menthol Lozenge 2/Pkg PO PRN (13:29)
--- NOTE | 2017-03-23 15:19 | NUR ---
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 Patient denies S/I and H/I. She also denies auditory and visual hallucinations. Depression is 0/10 and anxiety is 0/10. Patient participated in the morning group session, but was asleep in her room for the afternoon group session and did not want to attend. A: Patient is cooperative, disheveled, distactible, tangential, improving, limited insight, limited judgment. P: Follow care plan, coordinate with out-patient providers.
[2017-03-23] MEDS ORDERED: Fluticasone 0.05% 15 Spray/2 Gm 16 Gm Nasal Spray NASAL PRN (15:45)
--- NOTE | 2017-03-23 15:57 | PCM.PNMED ---
Subjective Date of Service March 23, 2017 Subjective Patient is seen and examined. She states that her cough and leg edema have much improved. From the records she has no fevers. She states that she is now incontinent of urine sometimes, and it is embarrassing. Complains of nasal congestion. She has no other concerns. Exam Vital Signs Vital Sign - Last Date Time Temp Pulse Resp B/P Pulse Ox O2 Delivery O2 Flow Rate FiO2 03/22/17 08:30 36.8 57 18 181/87 Intake and Output 03/22/17 03/22/17 03/23/17 Cumulative From/Thru 15:00 23:00 07:00 03/01/17 17:10 - 03/23/17 05:54 Intake Total 350 ml 510 ml Output Total 600 ml 600 ml Balance -250 ml -90 ml Intake Oral 350 ml 510 ml Output Urine Total 600 ml 600 ml # Voids 1 Exam Gen.: No acute distress HEENT: NCAT Heart: Soft systolic murmur without radiation, regular rate and rhythm Lungs: Clear to auscultation, no crackles or wheezes, no increased work of breathing Abdomen: Soft nondistended Extremities: Much improved bilateral swelling Vasculature: Pedal pulses palpable Skin: Dry and warm and dry Neuro: No focal deficits Psych: Negative for anxiety and agitation IVs and Medications IV Fluids None Medications Reviewed: Medications were reviewed in detail Lab and Diagnostics Laboratory Tests Test 03/23/17 07:05 Triglycerides Level 141mg/dL (0-149) Cholesterol Level 241mg/dL (100-199) LDL Cholesterol, Calculated 131.800mg/dL (0-99) VLDL Cholesterol 28.200mg/dL HDL Cholesterol 81mg/dL (>39) Cholesterol/HDL Ratio 2.98 (0.0-4.4) Microbiology 03/22/17 Adenovirus DNA (PCR) - Final, Complete Not Detected 03/22/17 Coronavirus 229E PCR - Final, Complete Not Detected 03/22/17 Coronavirus HKU1 PCR - Final, Complete Not Detected 03/22/17 Coronavirus NL63 PCR - Final, Complete Not Detected 03/22/17 Coronavirus OC43 PCR - Final, Complete Not Detected 03/22/17 Influenza Type A (PCR) - Final, Complete Not Detected 03/22/17 Influenza Type B (PCR) - Final, Complete Not Detected 03/22/17 Human Metapneumovirus (PCR) (ORIANA) - Final, Complete Not Detected 03/22/17 Rhinovirus (PCR)(ORIANA) - Final, Complete Not Detected 03/22/17 Parainfluenza Virus Type 1 (PCR) - Final, Complete Not Detected 03/22/17 Parainfluenza Virus Type 2 (PCR) - Final, Complete Not Detected 03/22/17 Parainfluenza Virus Type 3 (PCR) - Final, Complete Not Detected 03/22/17 Parainfluenza Virus Type 4 (NAAT) - Final, Complete Not Detected 03/22/17 Respiratory Syncytial Virus (PCR)ME - Final, Complete Not Detected 03/22/17 Chlamydia pneumoniae (PCR) - Final, Complete Not Detected 03/22/17 Mycoplasma pneumoniae DNA Detection - Final, Complete Result Diagram: 03/21/17 1809 03/21/17 180 X-Rays, CTs and MRIs PROCEDURE: X-RAY CHEST ONE VIEW ([id number]) INDICATIONS: concern for CHF IMPRESSION: Diffuse interstitial opacities and cardiomegaly suggesting developing CHF. Atypical pneumonia cannot be excluded. Dictated by: Melquiades Escalante [facility] Interpreted: Edith Ramos MD on 03/22/2017 at 8:44 Transcribed by: JESÚS on 03/22/2017 at 8:46 Approved by: Edith Ramos MD, PhD on 03/22/2017 at 11:16 Cardiac Echo Impressions 03/23/17 Interpretation Summary The left ventricle is normal in size. Left ventricular wall thickness is mildly increased. Left ventricular ejection fraction is estimated to be .45. Compared to the prior exam, left ventricular function is moderately improved. There is mild global hypokinesis of the left ventricle. The right ventricle is grossly normal size. Right ventricular systolic function is mildly reduced. There is moderate to severe mitral regurgitation. There is mild tricuspid regurgitation. The right ventricular systolic pressure is estimated at 26 mmHg assuming a right atrial pressure of 3 mm Hg. Compared to the prior echo exam, there has been a decrease in TR severity. Electronically signed by: Austin Darnell on Reading Physician:03/23/2017 11:20 AM Assessment & Plan Acute otitis media left ear: -- Patient is started on Augmentin Acute sinusitis: -- Patient is started on Augmentin -- Resp PNL ordered, pending result -- Mucinex, Flonase were ordered Chronic heart failure likely secondary to moderate -severe mitral regurgitation -- Reviewed the CXR myself. Shows cardiomegaly and mild congestion. -- She is not in acute CHF exacerbation. this appears to be chronic. -- The patient is given a one-time dose of 40 mg by mouth Lasix on 03/22 -- She is started on 20 mg daily Lasix by mouth : Patient is asked to wear briefs or diapers in the morning when she takes Lasix. -- Echocardiogram was done on 03/23:"The left ventricle is normal in size. Left ventricular wall thickness is mildly increased. Left ventricular ejection fraction is estimated to be .45. Compared to the prior exam, left ventricular function is moderately improved. There is mild global hypokinesis of the left ventricle. The right ventricle is grossly normal size. Right ventricular systolic function is mildly reduced. There is moderate to severe mitral regurgitation. There is mild tricuspid regurgitation. The right ventricular systolic pressure is estimated at 26 mmHg assuming a right atrial pressure of 3 mm Hg. Compared to the prior echo exam, there has been a decrease in TR severity." -- Daily weights, accurate I&O: Staff unable to be accurate I&O's as patient does not always collect urine and has been incontinent -- She will need an outpatient cardiology consult and discharge. Peripheral neuropathy -- A1c, vitamin B-12, ferritin are ordered: A1C is 5.4, other two labs WNL -- Increase gabapentin to 400 mg 3 times a day Hypertension: -- Patient is started on Lasix 20 mg daily with potassium -- Hypertension better controlled on increased dose of lisinopril 20 mg Daily Dysphagia: -- Speech therapy is consulted, they recommended controlling mucus. Mucinex as ordered. -- Barium swallow studies ordered. Vomiting: Resolved -- No reported further events -- CMP CBC stable -- Continue to monitor Onychomycosis, chronic: -- Toenail infections are recently difficult to treat -- May consider Lamisil for 3 months, she will need regular LFT. It is unclear even this will help her considering her extensive disease -- We will consider podiatry consult Resuscitation Status: CPR: Attempt Resuscitation Time spent 25 minutes Erika Hoffmann DO March 23, 2017 06:02
--- NOTE | 2017-03-23 16:55 | PCM.PNPSY ---
Subjective Date of Service March 23, 2017 Subjective The patient reports that she "coughed up phlegm" and that "they are going to put my son in lock-up." The patient reported having difficulty with one of the staff members not allowing her to come out to get ice water as she is concerned about others getting germs. Patient noted no side effects from increased aripiprazole. Sleep: 6.5 hours+ Appetite: "Hungry." Suicidal and homicidal ideation: denies Auditory hallucinations: denies Visual hallucinations: denies Other Psychotic Symptoms: some paranoia still present but appears reduced Anxiety: 0/10 Depression: 0/10 Current Medications Current Medications Amoxicillin/ Clavulanate Potassium 1 tab BID PO Last administered on 03/23/17 08:44; Admin Dose 1 TAB; Start 03/22/17 at 20:30; Stop 04/02/17 at 17:30 Aripiprazole 30 mg HS PO Last administered on 03/22/17 21:00; Admin Dose 30 MG ; Start 03/21/17 at 21:00 Furosemide 20 mg DAILY PO Last administered on 03/23/17 11:39; Admin Dose 20 MG ; Start 03/23/17 at 08:30 Furosemide 40 mg ONCE ONCE PO Last administered on 03/22/17 16:43; Admin Dose 40 MG; Start 03/22/17 at 16:20; Stop 03/22/17 at 16:21; Status DC Gabapentin 300 mg TID PO Last administered on 03/23/17 13:25; Admin Dose 300 MG ; Start 03/22/17 at 20:30; Stop 03/23/17 at 15:46; Status DC Guaifenesin 600 mg Q12 PO Last administered on 03/23/17 08:45; Admin Dose 600 MG; Start 03/22/17 at 20:30 Lisinopril 10 mg ONCE ONCE PO Last administered on 03/22/17 17:52; Admin Dose 10 MG; Start 03/22/17 at 17:10; Stop 03/22/17 at 17:15; Status DC Lisinopril 20 mg DAILY PO Last administered on 03/23/17 08:47; Admin Dose 20 MG ; Start 03/23/17 at 08:30; Stop 03/23/17 at 15:46; Status DC Vitamin A/Vitamin D/Cyanocobalamin 1,000 mcg Q30D IM Last administered on t 20:01; Admin Dose 1,000 MCG; Start 03/21/17 at 17:45 Mental Status Exam Vital Signs Vital Signs Date Time Temp Pulse Resp B/P Pulse Ox O2 Delivery O2 Flow Rate FiO2 03/23/17 11:35 56 134/71 03/23/17 09:23 36.0 60 16 144/67 Appearance: Neat/well groomed Attitude: Pleasant, Cooperative Behavior: Distractible Affect: Well Modulated/Appropriate Mood: Other Thought Process/Associations: Goal Directed, Tangential (at times.) Speech Production: Normal Speech Rate: Normal Speech Articulation: Normal Thought Content: Perseveration Danger to Self/Suicidal Ideati: None Danger to Others: None Delusions: Paranoid (mild) Hallucinations: Auditory (Denies), Visual (Denies) Consciousness: Alert Orientation: Person, Place, Date, Situation Memory: Grossly Intact Estimate Intellectual Function: Average Basis for IQ estimate: Awareness current events Attention/Concentration & Cogn: Impaired Insight: Limited Judgement: Limited Result Diagram: 03/21/17180803/21/171808 Mental Health Plan The patient is a 71-year-old white female, who has been treated for bipolar disorder and psychosis for several decades by her primary care physician. She has been medication noncompliant and has not been taking any medication for several months. For the six weeks prior to admission, she had been experiencing poor sleep, and family and friends were noticing increasing distractibility and a decreased ability to take care of herself. When police arrived, they noted her home was in severe disarray and that it could no longer be inhabited. On admission, the patient was noted to be delusional, labile and tangential in her speech. On the unit, the patient has been bright and pleasant and still reports that the insects in her blood were gone. She is somewhat germ phobic given her past is not entirely unreasonable. The patient has been willing to take Lasix and understands the need to help her heart. She appears to be responding to an increased the dose of aripiprazole with improved organization and decreased paranoia. [place] AXIS I Psychosis unspecified vs. Schizoaffective disorder, bipolar type AXIS II Defer. AXIS III 1. Congestive heart failure. 2. Peripheral neuropathy. 3. Lower extremity edema. 4. History of respiratory failure with intubation May 2014. AXIS IV Unknown. AXIS V 35. Medications Abilify 30mg daily Citalopram 20mg daily Hydroxyzine 25 mg every 6 hours when necessary itching Atorvastatin 10 mg nightly Famotidine 20 mg daily when necessary Ferrous Gluconate 324mg po bid Gabapentin 400 mg 3 times a day Perphenazine 600 mg every 12 hours Potassium chloride 20meq po daily Lisinopril 20 mg po daily Metoprolol 25 mg daily. Mupirocin nasal 3 times a day Nystatin topical twice a day Percocet 5-325 every 6 hours when necessary pain Potassium chloride 20 mEq daily Sodium chloride nasal spray Triamcinolone topical twice daily Vitamin B12 injection monthly Treatments 1. The patient is admitted to the inpatient unit and will be provided a safe and secure environment. 2. The patient is denying current active suicidality and is not in need of a one-to-one at this time. He is agreeing to notify us should he have any acute suicidal or homicidal thoughts. 3. The patient is encouraged to participate with group and milieu activities. 4. The patient will be seen by the treatment team on a daily basis to assess symptoms, side effects and response to treatment. 5. Continue current medications. 6. Appreciate internal medicine consult and management. 7. Awaiting discharge options to assisted care such as [facility] or family home. 8. Anticipated length of stay is 10-14 days. . Tuan Barragan MD March 23, 2017 16:55
--- NOTE | 2017-03-23 17:56 | NUR ---
[facility] Day Shift Pt affect and behavior appears unchanged from previous shifts. Pt maintained behavioral control throughout the shift. Pt affect appears bright, manic. Pt spends most of the shift resting in her room or interacting with peers in the dining room. Pt is pleasant and appropriate with staff and peers when active on the unit. Pt speech and thought content appear tangential, occasionally nonsensical (though less so than noted on previous shifts). Pt continues to use various unit amenities as "makeup." Pt attended all meals and ate approx 70% of all meals.
--- NOTE | 2017-03-23 18:11 | NUR ---
Nursing: Day shift: 07 to 1899 Jaci S: I want to have a nap. I want to go down and have my heart exam. I don't want to go to the group because they (peers) will fight. O: Jaci has been out on the open unit all a.m. In the afternoon, she took a nap. She was cooperative with taking scheduled meds as offered including Lasix. PRN meds: Percocet 5-325 and cepacol lozenge at 1330. Had ECHO done off unit. [employer] Director attempted to keep track of intake and output but was not able to get accurate count due to pt. behavior. At 1515, pt. was incontinent of urine all over bathroom floor. Blames Lasix. Ankles without edema today. No complaints about difficulty breathing. Pt. asks for cream to apply to skin lesions except two area on back and neck. A: Behavior more calm. Thoughts more organized. Total sleep times that include night and day napping are adequate. P: Assess for med effectiveness.
[2017-03-23 22:42] VITALS: BP 140/60; PULSE 59; RESP 16
--- NOTE | 2017-03-24 03:34 | NUR ---
Nursing NOC 7p-7a PT has been her usual self this shift. PT is cheerful and likes to tell a lot of stories. Pt occasionally requests a hug, but is not inappropriate. PT showered this roxie. PT did request her BG check and it was 99 at the time. PT is compliant with all of her medications and has not required any prn meds this roxie. PT b/p has been sustaining normal level after lasix was given earlier in the day. IT has been difficult to do adequate I&O's on her, but her BLE edema has improved. PT denies any SI/HI. PT does not appear or report anxiety. PT understands that she will have to go to a "half way house" upon d/c and reportedly has made arrangements with "the court" to clean up her home. PT states that her son is helping to get her house straightened. PT is scheduled for a barium swallow today at 1000. Presently, pt is cooperative with taking meds and is on board with plan of care. WIll CTM for med effectiveness and any A/R.
[2017-03-24 08:29] VITALS: BP 112/72; PULSE 57; RESP 14
[2017-03-24] MEDS: Nystatin 100,000 Unit/Gm 15 Gm Powder TOPICAL SCH ×2 (09:10→20:46)
[2017-03-24] MEDS: Triamcinolone 0.1% 30 Gm Cream TOPICAL SCH ×2 (09:11→20:46)
[2017-03-24] MEDS: Amoxicillin-Clav 875-125 mg Tablet PO SCH ×2 (09:14→20:44)
[2017-03-24] MEDS: Potassium Chloride 20 mEq SR Tablet PO SCH (09:14)
[2017-03-24] MEDS: guaiFENesin 600 mg ER12 Tablet PO SCH ×2 (09:14→20:44)
[2017-03-24] MEDS: Mupirocin 2% 22 Gm Ointment NASAL SCH ×3 (09:14→20:46)
[2017-03-24] MEDS: MeTOProlol XL 25 mg ER24 Tablet PO SCH (09:15)
--- NOTE | 2017-03-24 11:06 | DRSVH ---
PROCEDURE: X-RAY BARIUM SWALLOW ESOPHAGUS ([id number]) INDICATIONS: dysphagia, Speech eval recommendation COMPARISON: [facility], CT, CT ABD PELVIS W CON, 06/27/2016, 4:58. [facility], CR, XR CHEST 1VW, 03/22/2017, 7:54. FINDINGS: Function: Mild esophageal dysmotility. No elicited gastroesophageal reflux. There is normal transit of a calibrated barium tablet through the esophagus into the stomach. Morphology: Air-contrast images demonstrate normal mucosal morphology. Single contrast views show n o esophageal strictures, extrinsic mass effects, or diverticula. Limited images of the stomach demon strate normal appearance. The attending physician was personally present in the room during the exam ination. IMPRESSION: Mild esophageal dysmotility. Dictated by: Melquiades MEDINA Interpreted: Brandon Ko MD on 03/24/2017 at 11:04 Transcribed by: ELEAZAR on 03/24/2017 at 11:06 Approved by: Brandon Ko M.D. on 03/24/2017 at 13:25
[2017-03-24 14:15] VITALS: BP 143/70; PULSE 57; RESP 17
--- NOTE | 2017-03-24 17:40 | NUR ---
Observations [id number] Pt appeared physically tired, spending more time sleeping in room then in previous days. Pt very concerned regarding where she will be staying once discharged- "I need a home, I have nowhere to stay". Pt went down to have her esophagus checked in the morning and slept in the afternoon. Pt ate 100% of breakfast, 0% of lunch and 100% dinner. Pt expressed that other patients were bothering her- "they are so loud, and they follow me around; they make me nervous." Pt also became upset in the morning when staff requested she return dress to another patient whom she borrowed it from. Pt insisted that it belonged to her. Pt's mood improved after she picked out new clothing from the donation closet. She was observed every 15 minutes of shift as directed.
--- NOTE | 2017-03-24 18:12 | NUR ---
Nursing Dayshift: S: "When are we going for that test?" O: Patient cooperative with the Barium Swallow test this AM. Has been in a bright and cheerful mood much of the shift. A little on the sedate side this AM. More energy as the day progressed. Good appetite at meals. Attending unit activities. A: Bright affect. Cooperative. P: CPOC. Monitor mood and behavior.
[2017-03-24] MEDS: hydrOXYzine Pamoate 25 mg Capsule PO PRN (18:41)
--- NOTE | 2017-03-24 18:42 | NUR ---
Nurses PRN Patient requested and received Ibuprofen 600mg and Vistaril 25mg for back and neck pain,will assess response.
--- NOTE | 2017-03-24 19:56 | NUR ---
closing manager/Counselor: S: "Abdirizak Simon always wore all black clothes." O: Patient slept 6 hours last night per staff. Patient denies S/I and H/I. She also denies auditory and visual hallucinations. Depression is 0/10 and anxiety is 0/10. This credit underwriter spoke with Winifred at [facility]. An application will be completed tomorrow with Winifred from [facility] for possible placement in an Adult Home. A: Patient is cooperative, disheveled, distactible, improving, limited insight, limited judgment. P: Follow care plan, coordinate with out-patient providers. Addendum: 03/24/17 at 9 by [facility] Patient did not attend the afternoon group session.
--- NOTE | 2017-03-24 20:47 | PCM.PNMED ---
Subjective Date of Service Mar 24, 2017 Subjective Patient is seen and examined. She is spending some time with her son Raya. She says that her legs have much improved as well as her ear pain. She has no other concerns Exam Vital Signs Vital Sign - Last Date Time Temp Pulse Resp B/P Pulse Ox O2 Delivery O2 Flow Rate FiO2 03/24/17 14:15 36.5 57 17 143/70 Intake and Output 03/23/17 03/23/17 03/24/17 Cumulative From/Thru 15:00 23:00 07:00 03/01/17 17:10 - 03/23/17 08:13 Intake Total 510 ml Output Total 600 ml Balance -90 ml Intake Oral 510 ml Output Urine Total 600 ml # Voids 1 Exam Gen.: No acute distress HEENT: NCAT Heart: Soft systolic murmur without radiation, regular rate and rhythm Lungs: Clear to auscultation, no crackles or wheezes, no increased work of breathing Abdomen: Soft nondistended Extremities: Much improved bilateral swelling Vasculature: Pedal pulses palpable Skin: Dry and warm and dry Neuro: No focal deficits Psych: Negative for anxiety and agitation IVs and Medications Medications Reviewed: Medications were reviewed in detail Lab and Diagnostics Result Diagram: 03/21/17 18003/21/17 180 X-Rays, CTs and MRIs PROCEDURE: X-RAY CHEST ONE VIEW ([id number]) INDICATIONS: concern for CHF IMPRESSION: Diffuse interstitial opacities and cardiomegaly suggesting developing CHF. Atypical pneumonia cannot be excluded. Dictated by: Melquiades Escalante [facility] Interpreted: Edith Ramos MD on 03/22/2017 at 8:44 Transcribed by: JESÚS on 03/22/2017 at 8:46 Approved by: Edith Ramos MD, PhD on 03/22/2017 at 11:16 Cardiac Echo Impressions 03/23/17 Interpretation Summary The left ventricle is normal in size. Left ventricular wall thickness is mildly increased. Left ventricular ejection fraction is estimated to be .45. Compared to the prior exam, left ventricular function is moderately improved. There is mild global hypokinesis of the left ventricle. The right ventricle is grossly normal size. Right ventricular systolic function is mildly reduced. There is moderate to severe mitral regurgitation. There is mild tricuspid regurgitation. The right ventricular systolic pressure is estimated at 26 mmHg assuming a right atrial pressure of 3 mm Hg. Compared to the prior echo exam, there has been a decrease in TR severity. Electronically signed by: Austin Darnell on Reading Physician:03/23/2017 11:20 AM Additional Diagnostics PROCEDURE: X-RAY BARIUM SWALLOW ESOPHAGUS ([id number]) INDICATIONS: dysphagia, Speech eval recommendation COMPARISON: [facility], CT, CT ABD PELVIS W CON, 06/27/2016, 4:58. [facility], CR, XR CHEST 1VW, 03/22/2017, 7:54. FINDINGS: Function: Mild esophageal dysmotility. No elicited gastroesophageal reflux. There is normal transit of a calibrated barium tablet through the esophagus into the stomach. Morphology: Air-contrast images demonstrate normal mucosal morphology. Single contrast views show no esophageal strictures, extrinsic mass effects, or diverticula. Limited images of the stomach demonstrate normal appearance. The attending physician was personally present in the room during the examination. IMPRESSION: Mild esophageal dysmotility. Dictated by: Melquiades Escalante [facility] Interpreted: Brandon Ko MD on 03/24/2017 at 11:04 Transcribed by: ELEAZAR on 03/24/2017 at 11:06 Approved by: Brandon Ko M.D. on 03/24/2017 at 13:25 Assessment & Plan Dysphagia: -- Speech therapy is consulted, they recommended controlling mucus. Mucinex as ordered. -- Barium swallow studies ordered. Showed mild esophageal dysmotility -- We can consider cardizem but may have to lower metoprolol dosage as her HR may not support both. Onychomycosis, chronic: -- Toenail infections are recently difficult to treat -- May consider Lamisil for 3 months, she will need regular LFT. It is unclear even this will help her considering her extensive disease -- We will consider podiatry consult -- She may use lamisil spray for now. Acute otitis media left ear: -- Patient is started on Augmentin for one week Acute sinusitis: -- Patient is started on Augmentin -- Resp PNL ordered, pending result -- Mucinex, Flonase were ordered Chronic heart failure likely secondary to moderate -severe mitral regurgitation -- Reviewed the CXR myself. Shows cardiomegaly and mild congestion. -- She is not in acute CHF exacerbation. this appears to be chronic. -- The patient is given a one-time dose of 40 mg by mouth Lasix on 03/22 -- She is started on 20 mg daily Lasix by mouth : Patient is asked to wear briefs or diapers in the morning when she takes Lasix. -- Echocardiogram was done on 03/23:"The left ventricle is normal in size. Left ventricular wall thickness is mildly increased. Left ventricular ejection fraction is estimated to be .45. Compared to the prior exam, left ventricular function is moderately improved. There is mild global hypokinesis of the left ventricle. The right ventricle is grossly normal size. Right ventricular systolic function is mildly reduced. There is moderate to severe mitral regurgitation. There is mild tricuspid regurgitation. The right ventricular systolic pressure is estimated at 26 mmHg assuming a right atrial pressure of 3 mm Hg. Compared to the prior echo exam, there has been a decrease in TR severity." -- Patient is doing better. -- Daily weights, accurate I&O: Staff unable to be accurate I&O's as patient does not always collect urine and has been incontinent -- She will need an outpatient cardiology consult and discharge. Peripheral neuropathy -- A1c, vitamin B-12, ferritin are ordered: A1C is 5.4, other two labs WNL -- Increased gabapentin to 400 mg 3 times a day Hypertension: -- Patient is started on Lasix 20 mg daily with potassium -- Hypertension better controlled on increased dose of lisinopril 20 mg Daily Vomiting: Resolved -- No reported further events -- CMP CBC stable -- Continue to monitor Resuscitation Status: CPR: Attempt Resuscitation Time spent 20 min Erika Hoffmann DO Mar 24, 2017 20:47
--- NOTE | 2017-03-24 22:17 | PCM.PNPSY ---
Subjective Date of Service Mar 24, 2017 Subjective The patient reports that she "aced" her echocardiogram. Review of summary indicates some improvement in function. The patient reports that she is overall doing "good" and would like to be discharged as soon as possible as she has to pay her lease. Patient reports would like to stay at alf house behind [facility] but this is only a short-term housing option. Patient noted no side effects from increased aripiprazole. Sleep: 6 hours+ Appetite: "Good." Suicidal and homicidal ideation: denies Auditory hallucinations: denies Visual hallucinations: denies Other Psychotic Symptoms: N/A Anxiety: 0/10 Depression: 0/10 Current Medications Current Medications Atorvastatin Calcium 10 mg HS PO Last administered on 03/24/17 20:44; Admin Dose 10 MG; Start 03/23/17 at 21:00 Furosemide 20 mg DAILY PO Last administered on 03/24/17 15:20; Admin Dose 20 MG ; Start 03/23/17 at 08:30 Gabapentin 400 mg TID PO Last administered on 03/24/17 20:44; Admin Dose 400 MG ; Start 03/23/17 at 20:30 Lisinopril 20 mg DAILY PO Last administered on 03/23/17 08:47; Admin Dose 20 MG ; Start 03/23/17 at 08:30; Stop 03/23/17 at 15:46; Status DC Lisinopril 20 mg DAILY PO Last administered on 03/24/17 09:15; Admin Dose 20 MG ; Start 03/24/17 at 08:30 Mental Status Exam Vital Signs Vital Signs Date Time Temp Pulse Resp B/P Pulse Ox O2 Delivery O2 Flow Rate FiO2 03/24/17 14:15 36.5 57 17 143/70 Appearance: Neat/well groomed Attitude: Pleasant, Cooperative Behavior: Distractible Affect: Well Modulated/Appropriate Mood: Other Thought Process/Associations: Goal Directed Speech Production: Normal Speech Rate: Normal Speech Articulation: Normal Thought Content: Perseveration Danger to Self/Suicidal Ideati: None Danger to Others: None Delusions: Paranoid (mild) Hallucinations: Auditory (Denies), Visual (Denies) Consciousness: Alert Orientation: Person, Place, Date, Situation Memory: Grossly Intact Estimate Intellectual Function: Average Basis for IQ estimate: Awareness current events Attention/Concentration & Cogn: Impaired Insight: Limited Judgement: Limited Result Diagram: 03/21/17 18003/21/17 180 Mental Health Plan The patient is a 71-year-old white female, who has been treated for bipolar disorder and psychosis for several decades by her primary care physician. She has been medication noncompliant and has not been taking any medication for several months. For the six weeks prior to admission, she had been experiencing poor sleep, and family and friends were noticing increasing distractibility and a decreased ability to take care of herself. When police arrived, they noted her home was in severe disarray and that it could no longer be inhabited. On admission, the patient was noted to be delusional, labile and tangential in her speech. On the unit, the patient has been bright and pleasant with sometimes vibrant makeup/dress and usually offering "gifts" to the treatment team. The patient has been willing to take Lasix and understands the need to help her heart and denies significant problem with frequent urination. She appears to be responding to an increased the dose of aripiprazole with improved organization and decreased paranoia. [place] AXIS I Psychosis unspecified vs. Schizoaffective disorder, bipolar type AXIS II Defer. AXIS III 1. Congestive heart failure. 2. Peripheral neuropathy. 3. Lower extremity edema. 4. History of respiratory failure with intubation May 2014. AXIS IV Unknown. AXIS V 35. Medications Abilify 30mg daily Citalopram 20mg daily Hydroxyzine 25 mg every 6 hours when necessary itching Atorvastatin 10 mg nightly Famotidine 20 mg daily when necessary Ferrous Gluconate 324mg po bid Gabapentin 400 mg 3 times a day Perphenazine 600 mg every 12 hours Potassium chloride 20meq po daily Lisinopril 20 mg po daily Metoprolol 25 mg daily. Mupirocin nasal 3 times a day Nystatin topical twice a day Percocet 5-325 every 6 hours when necessary pain Potassium chloride 20 mEq daily Sodium chloride nasal spray Triamcinolone topical twice daily Vitamin B12 injection monthly Treatments 1. The patient is admitted to the inpatient unit and will be provided a safe and secure environment. 2. The patient is denying current active suicidality and is not in need of a one-to-one at this time. He is agreeing to notify us should he have any acute suicidal or homicidal thoughts. 3. The patient is encouraged to participate with group and milieu activities. 4. The patient will be seen by the treatment team on a daily basis to assess symptoms, side effects and response to treatment. 5. Continue current medications. 6. Appreciate internal medicine consult and management. 7. Awaiting discharge options to assisted care such as [facility] or family home. 8. Anticipated length of stay is 10-14 days with probable discharge tomorrow. . Tuan Barragan MD Mar 24, 2017 22:17
[2017-03-25 01:26] VITALS: BP 126/62; PULSE 60; RESP 16
--- NOTE | 2017-03-25 05:27 | NUR ---
Nursing Noc Pt pleasant and cooperative appears to have short periods of reality based thinking then becomes more labile. Taking medications as prescribed. Good insight to chronic aches and pain and asking for medications to control appropriately. Planned court today. Continuing to monitor mood behavior and emotional state. CP
[2017-03-25] MEDS: Potassium Chloride 20 mEq SR Tablet PO SCH (08:19)
[2017-03-25] MEDS: Triamcinolone 0.1% 30 Gm Cream TOPICAL SCH ×2 (08:19→21:29)
[2017-03-25] MEDS: MeTOProlol XL 25 mg ER24 Tablet PO SCH (08:19)
[2017-03-25] MEDS: Amoxicillin-Clav 875-125 mg Tablet PO SCH ×2 (08:19→21:30)
[2017-03-25] MEDS: guaiFENesin 600 mg ER12 Tablet PO SCH ×2 (08:19→21:31)
[2017-03-25] MEDS: Nystatin 100,000 Unit/Gm 15 Gm Powder TOPICAL SCH ×2 (08:20→21:32)
[2017-03-25] MEDS: Mupirocin 2% 22 Gm Ointment NASAL SCH ×3 (08:20→21:31)
[2017-03-25 09:05] VITALS: BP 133/75; PULSE 57; RESP 11
[2017-03-25 13:30] VITALS: BP 120/70; PULSE 53; RESP 14
--- NOTE | 2017-03-25 16:00 | PCM.PNPSY ---
Subjective Date of Service Mar 25, 2017 Subjective The patient reports that she is "looking for a home. I feel real good. The new antibiotic is helping my legs. The new antibiotic is helping my ear feel better." The patient reported frustration in receiving macaroni and cheese and a cheese sandwich as she does not like cheese. She denied any side effects and was looking forward to discharge to the community. The patient reported that her son will be paying her lease payment sometime today or tomorrow. Sleep: 6 hours+, patient reports 10 hours and feeling rested. Appetite: "Good, hungry all the time." Suicidal and homicidal ideation: denies Auditory hallucinations: denies Visual hallucinations: denies Other Psychotic Symptoms: N/A Anxiety: 0/10 Depression: 0/10 Current Medications Current Medications Atorvastatin Calcium 10 mg HS PO Last administered on 03/24/17 20:44; Admin Dose 10 MG; Start 03/23/17 at 21:00 Gabapentin 400 mg TID PO Last administered on 03/25/17 14:00; Admin Dose 400 MG ; Start 03/23/17 at 20:30 Lisinopril 20 mg DAILY PO Last administered on 03/25/17 08:19; Admin Dose 20 MG ; Start 03/24/17 at 08:30 Mental Status Exam Appearance: Neat/well groomed Attitude: Pleasant, Cooperative Behavior: Distractible Affect: Well Modulated/Appropriate Mood: Expansive (slightly) Thought Process/Associations: Goal Directed Speech Production: Normal Speech Rate: Normal Speech Articulation: Normal Thought Content: Perseveration Danger to Self/Suicidal Ideati: None Danger to Others: None Delusions: Paranoid (Endorses, mild) Hallucinations: Auditory (Denies), Visual (Denies) Consciousness: Alert Orientation: Person, Place, Date, Situation Memory: Grossly Intact Estimate Intellectual Function: Average Basis for IQ estimate: Awareness current events Attention/Concentration & Cogn: Impaired Insight: Limited Judgement: Limited Result Diagram: 03/21/17 1809 03/21/17 180 Mental Health Plan The patient is a 71-year-old white female, who has been treated for bipolar disorder and psychosis for several decades by her primary care physician. She has been medication noncompliant and has not been taking any medication for several months. For the six weeks prior to admission, she had been experiencing poor sleep, and family and friends were noticing increasing distractibility and a decreased ability to take care of herself. When police arrived, they noted her home was in severe disarray and that it could no longer be inhabited. On admission, the patient was noted to be delusional, labile and tangential in her speech. On the unit, the patient has been bright and pleasant with sometimes vibrant makeup/dress and usually offering "gifts" to the treatment team. The patient has been willing to take Lasix and understands the need to help her heart and denies significant problem with frequent urination. She appears to be responding to an increased the dose of aripiprazole with improved organization and decreased paranoia. The counselor is currently working on helping the patient with housing but as yet none's been found. [place] AXIS I Psychosis unspecified vs. Schizoaffective disorder, bipolar type AXIS II Defer. AXIS III 1. Congestive heart failure. 2. Peripheral neuropathy. 3. Lower extremity edema. 4. History of respiratory failure with intubation May 2014. AXIS IV Unknown. AXIS V 40 Medications Abilify 30mg daily Citalopram 20mg daily Hydroxyzine 25 mg every 6 hours when necessary itching Atorvastatin 10 mg nightly Famotidine 20 mg daily when necessary Ferrous Gluconate 324mg po bid Gabapentin 400 mg 3 times a day Guaifenesin 600 mg every 12 hours Potassium chloride 20meq po daily Lisinopril 20 mg po daily Metoprolol 25 mg daily. Mupirocin nasal 3 times a day Nystatin topical twice a day Percocet 5-325 every 6 hours when necessary pain Potassium chloride 20 mEq daily Sodium chloride nasal spray Triamcinolone topical twice daily Vitamin B12 injection monthly Treatments 1. The patient is admitted to the inpatient unit and will be provided a safe and secure environment. 2. The patient is denying current active suicidality and is not in need of a one-to-one at this time. He is agreeing to notify us should he have any acute suicidal or homicidal thoughts. 3. The patient is encouraged to participate with group and milieu activities. 4. The patient will be seen by the treatment team on a daily basis to assess symptoms, side effects and response to treatment. 5. Continue current medications. 6. Appreciate internal medicine consult and management. 7. Awaiting discharge options to assisted care such as adult family home. 8. Patient received extension and will likely leave early next week once housing located. . Tuan Barragan MD Mar 25, 2017 16:00
--- NOTE | 2017-03-25 16:15 | NUR ---
Nursing Dayshift: S: "How does this sweater look? Are the buttons lining up?" O: Patient buttoning her sweater and requesting assist in lining up the buttons. Has been cooperative and very pleasant this shift. Eating well at meals. Social with staff and peers. A: Pleasant. Some disorganization. P: CPOC. Monitor mood and behavior.
--- NOTE | 2017-03-25 18:37 | NUR ---
sports manager/Counselor: S: "I'm feeling better." O: Patient slept 6 hours last night per staff. Patient denies S/I and H/I. She also denies auditory and visual hallucinations. Depression is 0/10 and anxiety is 0/10. A: Patient is cooperative, disheveled, distactible, improving, limited insight, limited judgment. P: Follow care plan, coordinate with out-patient providers. Addendum: 03/25/17 at 1935 by [facility] This contract technical writer spoke with Roseanne from [facility] and once the application has been completed, Roseanne will come to the hospital and do an assessment.
--- NOTE | 2017-03-25 18:56 | NUR ---
[facility] Day Shift Pt affect and behavior appears mostly unchanged from previous shifts. Pt maintained behavioral control throughout the shift. Pt affect appears bright, less manic than noted on previous shifts. Pt spends most of the shift resting in her room or interacting with peers in the dining room. Pt is pleasant and appropriate with staff and peers when active on the unit. Pt speech and thought content appear tangential, occasionally nonsensical (though much less so than noted on previous shifts). Pt continues to use various unit amenities as "makeup." Pt attended all meals and ate approx 60-80% of all meals.
--- NOTE | 2017-03-25 19:10 | PCM.PNMED ---
Subjective Date of Service Mar 25, 2017 Subjective Patient is seen and examined. She says that she is continuing to feel better, her leg edema and ear pain as well as her mucus problems have much improved. She also is not complaining about urine incontinence after using Lasix. She shared some pictures she kept With me. No other concerns Exam Vital Signs Vital Sign - Last Date Time Temp Pulse Resp B/P Pulse Ox O2 Delivery O2 Flow Rate FiO2 03/25/17 13:30 36.4 53 14 120/70 Intake and Output 03/24/17 03/24/17 03/25/17 Cumulative From/Thru 15:00 23:00 07:00 03/01/17 17:10 - 03/23/17 08:13 Intake Total 510 ml Output Total 600 ml Balance -90 ml Intake Oral 510 ml Output Urine Total 600 ml # Voids 1 Exam Gen.: No acute distress HEENT: NCAT Heart: Soft systolic murmur without radiation, regular rate and rhythm Lungs: Clear to auscultation, no crackles or wheezes, no increased work of breathing Abdomen: Soft nondistended Extremities: Much improved bilateral swelling Vasculature: Pedal pulses palpable Skin: Dry and warm and dry Neuro: No focal deficits Psych: Negative for anxiety and agitation IVs and Medications IV Fluids None Medications Reviewed: Medications were reviewed in detail Lab and Diagnostics Result Diagram: 03/21/17180803/21/171808 X-Rays, CTs and MRIs PROCEDURE: X-RAY CHEST ONE VIEW ([id number]) INDICATIONS: concern for CHF IMPRESSION: Diffuse interstitial opacities and cardiomegaly suggesting developing CHF. Atypical pneumonia cannot be excluded. Dictated by: Melquiades Escalante [facility] Interpreted: Edith Ramos MD on 03/22/2017 at 8:44 Transcribed by: JESÚS on 03/22/2017 at 8:46 Approved by: Edith Ramos MD, PhD on 03/22/2017 at 11:16 Cardiac Echo Impressions 03/23/17 Interpretation Summary The left ventricle is normal in size. Left ventricular wall thickness is mildly increased. Left ventricular ejection fraction is estimated to be .45. Compared to the prior exam, left ventricular function is moderately improved. There is mild global hypokinesis of the left ventricle. The right ventricle is grossly normal size. Right ventricular systolic function is mildly reduced. There is moderate to severe mitral regurgitation. There is mild tricuspid regurgitation. The right ventricular systolic pressure is estimated at 26 mmHg assuming a right atrial pressure of 3 mm Hg. Compared to the prior echo exam, there has been a decrease in TR severity. Electronically signed by: Austin Darnell on Reading Physician:03/23/2017 11:20 AM Additional Diagnostics PROCEDURE: X-RAY BARIUM SWALLOW ESOPHAGUS ([id number]) INDICATIONS: dysphagia, Speech eval recommendation COMPARISON: [facility], CT, CT ABD PELVIS W CON, 06/27/2016, 4:58. [facility], CR, XR CHEST 1VW, 03/22/2017, 7:54. FINDINGS: Function: Mild esophageal dysmotility. No elicited gastroesophageal reflux. There is normal transit of a calibrated barium tablet through the esophagus into the stomach. Morphology: Air-contrast images demonstrate normal mucosal morphology. Single contrast views show no esophageal strictures, extrinsic mass effects, or diverticula. Limited images of the stomach demonstrate normal appearance. The attending physician was personally present in the room during the examination. IMPRESSION: Mild esophageal dysmotility. Dictated by: Melquiades Escalante [facility] Interpreted: Brandon Ko MD on 03/24/2017 at 11:04 Transcribed by: ELEAZAR on 03/24/2017 at 11:06 Approved by: Brandon Ko M.D. on 03/24/2017 at 13:25 Assessment & Plan Dysphagia: -- Speech therapy is consulted, they recommended controlling mucus. Mucinex as ordered. -- Barium swallow studies ordered. Showed mild esophageal dysmotility -- Cardizem is only indicated if patient is experiencing chest pain which is not the case here, and is since her blood pressures are holding up much better on the regimen she is already on, we will not treat her with medical management at this time. -- We will contact speech therapy to see if they have any further recommendations. -- She will likely need an outpatient GI follow-up after discharge. Onychomycosis, chronic: -- Toenail infections are recently difficult to treat -- May consider Lamisil for 3 months, she will need regular LFT. It is unclear even this will help her considering her extensive disease -- We will consider podiatry consult -- She may use lamisil spray for now. Acute otitis media left ear: -- Patient is started on Augmentin for one week Acute sinusitis: -- Patient is started on Augmentin -- Resp PNL ordered, pending result -- Mucinex, Flonase were ordered. May discontinue in 1 week. Chronic heart failure likely secondary to moderate -severe mitral regurgitation -- Reviewed the CXR myself. Shows cardiomegaly and mild congestion. -- She is not in acute CHF exacerbation. this appears to be chronic. -- The patient is given a one-time dose of 40 mg by mouth Lasix on 03/22 -- She is started on 20 mg daily Lasix by mouth : Patient is asked to wear briefs or diapers in the morning when she takes Lasix. -- Echocardiogram was done on 03/23:"The left ventricle is normal in size. Left ventricular wall thickness is mildly increased. Left ventricular ejection fraction is estimated to be .45. Compared to the prior exam, left ventricular function is moderately improved. There is mild global hypokinesis of the left ventricle. The right ventricle is grossly normal size. Right ventricular systolic function is mildly reduced. There is moderate to severe mitral regurgitation. There is mild tricuspid regurgitation. The right ventricular systolic pressure is estimated at 26 mmHg assuming a right atrial pressure of 3 mm Hg. Compared to the prior echo exam, there has been a decrease in TR severity." -- Patient is doing better on Lasix. -- She will need an outpatient appointment with cardiology for follow-up -- Daily weights, accurate I&O: Staff unable to be accurate I&O's as patient does not always collect urine and has been incontinent Peripheral neuropathy -- A1c, vitamin B-12, ferritin are ordered: A1C is 5.4, other two labs WNL -- Increased gabapentin to 400 mg 3 times a day Hypertension: -- Patient is started on Lasix 20 mg daily with potassium -- Hypertension better controlled on increased dose of lisinopril 20 mg Daily -- Consider one-time BMP prior to discharge to home. Vomiting: Resolved -- No reported further events -- CMP CBC stable -- Continue to monitor As patient is feeling much better, the medicine service will be signing off. Please do not hesitate to contact us if we can be of further help. Thank you for allowing us in the care of this patient. GI Prophylaxis: H2 margarito Resuscitation Status: CPR: Attempt Resuscitation Time spent 25 min Erika Hoffmann DO Mar 25, 2017 19:10 Erika Hoffmann DO Mar 25, 2017 19:10
[2017-03-26] MEDS: Benzocaine-Menthol Lozenge 2/Pkg PO PRN (02:32)
--- NOTE | 2017-03-26 02:34 | NUR ---
coughing patient up coughing. requested cepacol lozenger. administered. offered tea. prefers crystal light. care ongoing.
--- NOTE | 2017-03-26 04:54 | NUR ---
nursing, nights, s/o- has appeared to sleep after 2345 during q 15 minute assessments and remained asleep for approximately 1.5 hours.. a- Pt pleasant and cooperative and delusional about circumstances leading up to admission and discharge plan. p- monitor behavior/emotional state, quality, times and amount of sleep, use and effect of medication.
[2017-03-26] MEDS: oxyCODONE-Acetamin 5-325 mg Tablet PO PRN (05:06)
[2017-03-26 07:45] VITALS: BP 146/64; PULSE 51; RESP 16
[2017-03-26] MEDS: Nystatin 100,000 Unit/Gm 15 Gm Powder TOPICAL SCH ×2 (08:15→20:44)
[2017-03-26] MEDS: Potassium Chloride 20 mEq SR Tablet PO SCH (08:16)
[2017-03-26] MEDS: Mupirocin 2% 22 Gm Ointment NASAL SCH ×3 (08:16→20:43)
[2017-03-26] MEDS: MeTOProlol XL 25 mg ER24 Tablet PO SCH (08:16)
[2017-03-26] MEDS: Amoxicillin-Clav 875-125 mg Tablet PO SCH ×2 (08:16→20:45)
[2017-03-26] MEDS: guaiFENesin 600 mg ER12 Tablet PO SCH ×2 (08:18→20:45)
[2017-03-26] MEDS: Triamcinolone 0.1% 30 Gm Cream TOPICAL SCH ×2 (08:19→20:43)
--- NOTE | 2017-03-26 14:08 | NUR ---
NURSING DAYS 7-7 S-Patient states "I have 500 sugar plants at home. Do you like roses? What about my hair to you like it?" O-Patient appears happily confused so far today, taking medications and easy to direct. A-Patient denies shortness of breath, watching TV and interacting with staff and patients. C/o headache Ibuprin given. P-
--- NOTE | 2017-03-26 14:30 | PCM.PNPSY ---
Subjective Date of Service Mar 26, 2017 Subjective I spent 30 minutes both reviewing treatment plan with our clinical team, interviewing the patient and providing supportive/educational psychotherapy. I spent more than 50% of the time counseling the patient. I reviewed the treatment plan with the patient and discussed options available including the potential risks, benefits and side effects. Jaci reports a improvement in thought organization and mood stability and is requesting discharge. Staff reports that she has been active and participating appropriately in one-to-one unit and group activities. She slept 2 hours at night but approximately napping 6 hours during the day and denies depression manic or psychotic symptoms review. She denies medication side effects. She was able to identify her medications and what they were used to treat. Mental Status Exam Appearance: Neat/well groomed Attitude: Pleasant, Cooperative Behavior: Distractible Affect: Well Modulated/Appropriate Mood: Expansive (slightly) Thought Process/Associations: Goal Directed Speech Production: Normal Speech Rate: Normal Speech Articulation: Normal Thought Content: Perseveration Danger to Self/Suicidal Ideati: None Danger to Others: None Delusions: Paranoid (Endorses, mild) Consciousness: Alert Orientation: Person, Place, Date, Situation Memory: Grossly Intact Estimate Intellectual Function: Average Basis for IQ estimate: Awareness current events Attention/Concentration & Cogn: Impaired Insight: Limited Judgement: Limited Result Diagram: 03/21/17 1809 03/21/17 180 Mental Health Plan The patient is a 71-year-old white female, who has been treated it sounds like bipolar mood disorder and psychosis for several decades by a primary care physician that she has felt comfortable with. She has been medication noncompliant and has not taking any medication for several months. For the past six weeks, she reported poor sleep, and family and friends were noticing increasing distractibility and a decreased ability to take care of herself. When police arrived, they noted her apartment was extremely in disarray and that client was delusional, labile and tangential in her speech. Today Jaci reports having good thought organization and mood stability. Staff reports that she is hoarding food in her room, her cloths and actually stuffs food in her cheeks. She does well unless somebody interferes with what her she wants to do. She is expressing some paranoia . Her hygiene has significantly improved but she still has a difficult time attending to activities of daily living. She does well with redirection and support She has been active and participating well in one-to-one unit and group activities. She slept 6 hours over the past 24 and denies depression manic or psychotic symptoms review. Her house has been condemned by the [facility] [place] but she is unwilling or unable to acknowledge this. She denies medication side effects. We are trying to find placement for her in a setting where she can have her medications monitored And have help with activities of daily living. [place] AXIS I Psychosis unspecified vs. Schizoaffective disorder, bipolar type AXIS II Defer. AXIS III 1. Congestive heart failure. 2. Peripheral neuropathy. 3. Lower extremity edema. 4. History of respiratory failure with intubation May 2014. AXIS IV Unknown. AXIS V 40 Medications Abilify 30mg daily Citalopram 20mg daily Hydroxyzine 25 mg every 6 hours when necessary itching Atorvastatin 10 mg nightly Famotidine 20 mg daily when necessary Ferrous Gluconate 324mg po bid Gabapentin 400 mg 3 times a day Guaifenesin 600 mg every 12 hours Potassium chloride 20meq po daily Lisinopril 20 mg po daily Metoprolol 25 mg daily. Mupirocin nasal 3 times a day Nystatin topical twice a day Percocet 5-325 every 6 hours when necessary pain Potassium chloride 20 mEq daily Sodium chloride nasal spray Triamcinolone topical twice daily Vitamin B12 injection monthly Treatments Jaci is being provided with a high degree of safety through our unit structure and active adult engagement provided by our mental health professionals, mental health technicians, psychiatric nurses and myself. We are focusing on developing improved coping skills and identifying stressors that may have led to current episode. We will attempt to: * Integrate into therapeutic groups, milieu and individual therapy. * Maintain in a closely monitored and structured unit * Provide low-stimulation environment * Obtain collateral data to assist in treatment planning * Assess degree of lability of affect and impulse control * Complete safety plan * Decrease frequency of relapse and need for re-hospitalization * Denies thoughts of harm to self and/or others * Establish a consistent sleep pattern * Medication effective in stabilization of mood and/or thought process * Reduce the risk of imminent harm to self and/or others by providing a safe environment * Tolerates medication without side effects Patient will be on the following psychiatric medications: Abilify 30mg daily Citalopram 20mg daily Patient's legal status Patient is on a 14 day involuntary treatment hold. Patient will be given the opportunity to talk to her plate developer and the production material coordinator Anticipated number of hospital days to achieve above goals: 3 Disposition: Assisted care living, possibly [facility] Jose Davies MD Mar 26, 2017 14:30
[2017-03-26 19:00] VITALS: BP 181/81; PULSE 73; RESP 16
--- NOTE | 2017-03-26 21:30 | NUR ---
OBSERVATIONS Pt was pleasant and cooperative with staff. Pt still struggles to stay out of other pt rooms. Pt is upset about reportedly missing clothing. Pt at well at meals and snacks. Maintained Q15 safety checks as directed.
--- NOTE | 2017-03-27 05:30 | NUR ---
Nursing Noc Pt has appeared to sleep well this shift. Noted to be first asleep at 2300 and up once for short period at 0115. Pt noted to remain asleep the rest of the night. Pt pleasant and cooperative through the evening, historically delusional. Continuing to monitor mood behavior and emotional state. CP
--- NOTE | 2017-03-27 06:07 | NUR ---
Observations 1900 - 0700 Pt was observed to be paranoid, anxious, worried and was in and out of her room most of the evening. Pt was pleasant, polite and cooperative when approached. Pt maintained behavior throughout the shift. Pt speech and eye contact was ok. Pt watched some TV with peers before bed. Pt ate snack. Pt first appeared asleep at 2300 and has slept through the night. Pt was observed every 15 minutes through the night as ordered.
[2017-03-27] MEDS: Mupirocin 2% 22 Gm Ointment NASAL SCH ×3 (08:39→20:47)
[2017-03-27] MEDS: Amoxicillin-Clav 875-125 mg Tablet PO SCH ×2 (08:40→20:47)
[2017-03-27] MEDS: MeTOProlol XL 25 mg ER24 Tablet PO SCH (08:41)
[2017-03-27] MEDS: Potassium Chloride 20 mEq SR Tablet PO SCH (08:41)
[2017-03-27] MEDS: guaiFENesin 600 mg ER12 Tablet PO SCH ×2 (08:44→20:48)
[2017-03-27] MEDS: Triamcinolone 0.1% 30 Gm Cream TOPICAL SCH ×2 (10:00→20:50)
[2017-03-27] MEDS: Nystatin 100,000 Unit/Gm 15 Gm Powder TOPICAL SCH ×2 (10:02→20:47)
--- NOTE | 2017-03-27 10:43 | NUR ---
NURSING DAYS 7-3 S/O- Patient states "I am not going outside to courtyard. Let the others go, I am staying hear its quiet then!" A- Patient appears to be aware of some of her medical condition (ear infection ect..) Need to have daily weights. BP better today 133/79. Pateint eating and sleeping well, interacting with fellow patients. P- Continue with plan of care. Monitor medical conditions.
--- NOTE | 2017-03-27 12:43 | PCM.PNPSY ---
Subjective Date of Service Mar 27, 2017 Subjective I spent 30 minutes both reviewing treatment plan with our clinical team, interviewing the patient and providing supportive/educational psychotherapy. I spent more than 50% of the time counseling the patient. I reviewed the treatment plan with the patient and discussed options available including the potential risks, benefits and side effects. Jaci reports a continued improvement in thought organization and mood stability and is requesting discharge. Staff reports that she has been active and participating appropriately in one-to-one unit and group activities. She slept 7 hours at night but napping several hours during the day and denies depression manic or psychotic symptoms review. She denies medication side effects. She was able to identify her medications and what they were used to treat. Mental Status Exam Appearance: Neat/well groomed Attitude: Pleasant, Cooperative Behavior: Distractible Affect: Well Modulated/Appropriate Mood: Euthymic Thought Process/Associations: Logical/Sequential, Goal Directed Speech Production: Normal Speech Rate: Normal Speech Articulation: Normal Thought Content: Perseveration Danger to Self/Suicidal Ideati: None Danger to Others: None Delusions: Paranoid (Endorses, mild) Consciousness: Alert Orientation: Person, Place, Date, Situation Memory: Grossly Intact Estimate Intellectual Function: Average Basis for IQ estimate: Awareness current events Attention/Concentration & Cogn: Impaired Insight: Limited Judgement: Limited Result Diagram: 03/21/17 18003/21/17 180 Mental Health Plan The patient is a 71-year-old white female, who has been treated it sounds like bipolar mood disorder and psychosis for several decades by a primary care physician that she has felt comfortable with. She has been medication noncompliant and has not taking any medication for several months. For the past six weeks, she reported poor sleep, and family and friends were noticing increasing distractibility and a decreased ability to take care of herself. When police arrived, they noted her apartment was extremely in disarray and that client was delusional, labile and tangential in her speech. Today Jaci reports having good thought organization and mood stability. She has been active and participating well in one-to-one unit and group activities. She slept 7 hours over the past 24 and denies depression manic or psychotic symptoms review. Her [place] has been condemned by [place] [facility] [place] but she is unwilling or unable to acknowledge this. She denies medication side effects. We are trying to find placement for her in a setting where she can have her medications monitored And have help with activities of daily living. [place] AXIS I Psychosis unspecified vs. Schizoaffective disorder, bipolar type AXIS II Defer. AXIS III 1. Congestive heart failure. 2. Peripheral neuropathy. 3. Lower extremity edema. 4. History of respiratory failure with intubation May 2014. AXIS IV Unknown. AXIS V 45 Medications Abilify 30mg daily Citalopram 20mg daily Hydroxyzine 25 mg every 6 hours when necessary itching Atorvastatin 10 mg nightly Famotidine 20 mg daily when necessary Ferrous Gluconate 324mg po bid Gabapentin 400 mg 3 times a day Guaifenesin 600 mg every 12 hours Potassium chloride 20meq po daily Lisinopril 20 mg po daily Metoprolol 25 mg daily. Mupirocin nasal 3 times a day Nystatin topical twice a day Percocet 5-325 every 6 hours when necessary pain Potassium chloride 20 mEq daily Sodium chloride nasal spray Triamcinolone topical twice daily Vitamin B12 injection monthly Treatments Jaci is being provided with a high degree of safety through our unit structure and active adult engagement provided by our mental health professionals, mental health technicians, psychiatric nurses and myself. We are focusing on developing improved coping skills and identifying stressors that may have led to current episode. We will attempt to: * Integrate into therapeutic groups, milieu and individual therapy. * Maintain in a closely monitored and structured unit * Provide low-stimulation environment * Obtain collateral data to assist in treatment planning * Assess degree of lability of affect and impulse control * Complete safety plan * Decrease frequency of relapse and need for re-hospitalization * Denies thoughts of harm to self and/or others * Establish a consistent sleep pattern * Medication effective in stabilization of mood and/or thought process * Reduce the risk of imminent harm to self and/or others by providing a safe environment * Tolerates medication without side effects Patient will be on the following psychiatric medications: Abilify 30mg daily Citalopram 20mg daily Patient's legal status Patient is on a 14 day involuntary treatment hold. Patient will be given the opportunity to talk to her sports lawyer and the gang investigator Anticipated number of hospital days to achieve above goals: 2 Disposition: Assisted care living, possibly [facility] Jose Davies MD Mar 27, 2017 12:43
[2017-03-27 12:55] VITALS: BP 132/91; PULSE 97; RESP 16
--- NOTE | 2017-03-27 23:03 | NUR ---
NURSING NOTE [id number] Mood: "Good but if I get diverticulosis tonight I won't be happy!" Affect: mostly pleasant, paranoid at times Behavior: social in milieu, chatting w/peers, made multiple outfit changes throughout the shift, attended rec group, was med compliant. Did not want her meds crushed this evening as she stated "it makes them poisonous." She napped in the common area off and on. Expressed dismay w/another female pt., NANCY, and was unhappy that this pt. was socializing w/a peer in the and apparently accidentally bumped into her while she was taking a nap in front of the TV. [place] reports that her peer NANCY was trying to "mount another peer, LENCHO," and that by bumping into [place] she had caused "my hip to crack, and my head to hurt to the point where it's coming out of my eyeballs!" Accepted offer of PRN Ibuprofen 600 mg. Thought processes: delusional at times, paranoid off and on but does appear to let other peers influence her paranoid thoughts. She denies any AH/VH/SI/HI.
[2017-03-28] MEDS: oxyCODONE-Acetamin 5-325 mg Tablet PO PRN (05:30)
--- NOTE | 2017-03-28 05:56 | NUR ---
Nursing note: residential sales rep/sleep Patient appears to be sleeping in long intervals during the night on safety checks. Patient was awake briefly during the night for a snack. Patient awake early am complaining of generalized body aches, especially her hip. Patient offered Percocet or Motrin, but refuses "the white pills make me pee" "I need the the yellow and white capsule" ( Gabapentin) Patient then insists on taking Aspirin. Dr notified, order obtained. Patient had returned to bed and snoring loudly when fiction and nonfiction writer prose attempted to give prn Aspirin. Will reassess when patient awake.
[2017-03-28] MEDS: MeTOProlol XL 25 mg ER24 Tablet PO SCH (08:21)
[2017-03-28] MEDS: Potassium Chloride 20 mEq SR Tablet PO SCH (08:21)
[2017-03-28] MEDS: Nystatin 100,000 Unit/Gm 15 Gm Powder TOPICAL SCH ×2 (08:25→20:53)
[2017-03-28] MEDS: Triamcinolone 0.1% 30 Gm Cream TOPICAL SCH ×2 (08:25→20:53)
[2017-03-28] MEDS: Mupirocin 2% 22 Gm Ointment NASAL SCH ×3 (08:25→20:53)
[2017-03-28] MEDS: Amoxicillin-Clav 875-125 mg Tablet PO SCH ×2 (09:18→20:52)
[2017-03-28] MEDS: guaiFENesin 600 mg ER12 Tablet PO SCH ×2 (09:18→20:54)
[2017-03-28 10:00] VITALS: BP 177/73; PULSE 89; RESP 17
--- NOTE | 2017-03-28 12:39 | NUR ---
Behavior Pt. came to medication room to have her morning medications on her own accord. No overt distress was noted. She was compliant with her medications. She was friendly, cooperative, and able to maintain eye contact. According to report, pt. was upset with crushed medications. She was given her pills whole with vanilla pudding. No difficulty with swallowing noted. Her thought process was disorganized in general and incoherent at times. She insisted that she needed her blood glucose checked but failed to articulate the reasons for her request. She finally put the subject at rest after her blood glucose was checked. Blood glucose was 84.
--- NOTE | 2017-03-28 14:01 | PCM.PNPSY ---
Subjective Date of Service Mar 28, 2017 Subjective I spent 30 minutes both reviewing treatment plan with our clinical team, interviewing the patient and providing supportive/educational psychotherapy. I spent more than 50% of the time counseling the patient. I reviewed the treatment plan with the patient and discussed options available including the potential risks, benefits and side effects. Jaci reports a continued improvement in thought organization and mood stability and is requesting discharge. Staff reports that she has been active and participating appropriately in one-to-one unit and group activities. She slept 4hours at night but is napping several hours during the day and denies depression manic or psychotic symptoms review. She denies medication side effects. She was able to identify her medications and what they were used to treat. Mental Status Exam Vital Signs Vital Signs Date Time Temp Pulse Resp B/P Pulse Ox O2 Delivery O2 Flow Rate FiO2 03/28/17 10:00 36.7 89 17 177/73 Appearance: Neat/well groomed Attitude: Pleasant, Cooperative Behavior: Distractible Affect: Well Modulated/Appropriate Mood: Euthymic Thought Process/Associations: Logical/Sequential, Goal Directed Speech Production: Normal Speech Rate: Normal Speech Articulation: Normal Thought Content: Perseveration Danger to Self/Suicidal Ideati: None Danger to Others: None Delusions: Paranoid (Endorses, mild) Consciousness: Alert Orientation: Person, Place, Date, Situation Memory: Grossly Intact Estimate Intellectual Function: Average Basis for IQ estimate: Awareness current events Attention/Concentration & Cogn: Impaired Insight: Limited Judgement: Limited Mental Health Plan The patient is a 71-year-old white female, who has been treated it sounds like bipolar mood disorder and psychosis for several decades by a primary care physician that she has felt comfortable with. She has been medication noncompliant and has not taking any medication for several months. For the past six weeks, she reported poor sleep, and family and friends were noticing increasing distractibility and a decreased ability to take care of herself. When police arrived, they noted her apartment was extremely in disarray and that client was delusional, labile and tangential in her speech. Today Jaci reports having good thought organization and mood stability. She has been active and participating well in one-to-one unit and group activities. She slept 7 hours over the past 24 and denies depression manic or psychotic symptoms review. Her house has been condemned by the city of [place] but she is unwilling or unable to acknowledge this. She denies medication side effects. We are trying to find placement for her in a setting where she can have her medications monitored And have help with activities of daily living. [place] AXIS I Psychosis unspecified vs. Schizoaffective disorder, bipolar type AXIS II Defer. AXIS III 1. Congestive heart failure. 2. Peripheral neuropathy. 3. Lower extremity edema. 4. History of respiratory failure with intubation May 2014. AXIS IV Unknown. AXIS V 45 Medications Abilify 30mg daily Citalopram 20mg daily Hydroxyzine 25 mg every 6 hours when necessary itching Atorvastatin 10 mg nightly Famotidine 20 mg daily when necessary Ferrous Gluconate 324mg po bid Gabapentin 400 mg 3 times a day Guaifenesin 600 mg every 12 hours Potassium chloride 20meq po daily Lisinopril 20 mg po daily Metoprolol 25 mg daily. Mupirocin nasal 3 times a day Nystatin topical twice a day Percocet 5-325 every 6 hours when necessary pain Potassium chloride 20 mEq daily Sodium chloride nasal spray Triamcinolone topical twice daily Vitamin B12 injection monthly Treatments Jaci is being provided with a high degree of safety through our unit structure and active adult engagement provided by our mental health professionals, mental health technicians, psychiatric nurses and myself. We are focusing on developing improved coping skills and identifying stressors that may have led to current episode. We will attempt to: * Integrate into therapeutic groups, milieu and individual therapy. * Maintain in a closely monitored and structured unit * Provide low-stimulation environment * Obtain collateral data to assist in treatment planning * Assess degree of lability of affect and impulse control * Complete safety plan * Decrease frequency of relapse and need for re-hospitalization * Denies thoughts of harm to self and/or others * Establish a consistent sleep pattern * Medication effective in stabilization of mood and/or thought process * Reduce the risk of imminent harm to self and/or others by providing a safe environment * Tolerates medication without side effects Patient will be on the following psychiatric medications: Abilify 30mg daily Citalopram 20mg daily Patient's legal status Patient is on a 14 day involuntary treatment hold. Patient will be given the opportunity to talk to her adjunct english instructor and the hog scalder Anticipated number of hospital days to achieve above goals: 1 Disposition: Assisted care living, possibly [facility] Jose Davies MD Mar 28, 2017 14:01
--- NOTE | 2017-03-28 15:11 | NUR ---
Typing Teacher/Counselor S: "I am always just so happy!" O:Patient has no SI or HI, and has not experienced any auditory or visual hallucinations. Her mood is good and she has no depression or anxiety.She slept for 4 hours. A: Patient was very happy and cooperative. She made good eye contact and her overall affect was very upbeat. P:P: Follow care plan and coordinate with outpatient providers. Monitor behaviors.
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
[2017-03-29 05:18] VITALS: BP 144/76; PULSE 52; RESP 17
--- NOTE | 2017-03-29 06:26 | NUR ---
Nursing Noc Pt pleasant, social and cooperative on the unit. She spends a lot of time attending to personal grooming. Appears to be close to her baseline. Took scheduled medication without difficulty. Sleep broken through the night. Total sleep over 6 hours.
[2017-03-29] MEDS: Amoxicillin-Clav 875-125 mg Tablet PO SCH ×2 (07:53→21:11)
[2017-03-29] MEDS: MeTOProlol XL 25 mg ER24 Tablet PO SCH (07:53)
[2017-03-29] MEDS: guaiFENesin 600 mg ER12 Tablet PO SCH ×2 (07:53→21:11)
[2017-03-29] MEDS: Mupirocin 2% 22 Gm Ointment NASAL SCH ×3 (07:53→21:10)
[2017-03-29] MEDS: Potassium Chloride 20 mEq SR Tablet PO SCH (07:53)
[2017-03-29] MEDS: Nystatin 100,000 Unit/Gm 15 Gm Powder TOPICAL SCH ×2 (07:55→21:11)
[2017-03-29] MEDS: Triamcinolone 0.1% 30 Gm Cream TOPICAL SCH ×2 (08:30→21:11)
--- NOTE | 2017-03-29 12:38 | PCM.PNPSY ---
Subjective Date of Service Mar 29, 2017 Subjective I spent 30 minutes both reviewing treatment plan with our clinical team, interviewing the patient and providing supportive/educational psychotherapy. I spent more than 50% of the time counseling the patient. I reviewed the treatment plan with the patient and discussed options available including the potential risks, benefits and side effects. Jaci reports a continued improvement in thought organization and mood stability and is requesting discharge. Staff reports that she has been active and participating appropriately in one-to-one unit and group activities. She slept 6 hours at night and is napping several hours during the day. She denies depression manic or psychotic symptoms review. She denies medication side effects. She was able to identify her medications and what they were used to treat. Current Medications Current Medications Aspirin 650 mg Q4H PRN PO Last administered on 03/29/17t 03:11; Admin Dose 650 MG; Start 03/28/17 at 05:50 Mental Status Exam Appearance: Neat/well groomed Attitude: Pleasant, Cooperative Behavior: Distractible Affect: Well Modulated/Appropriate Mood: Euthymic Thought Process/Associations: Logical/Sequential, Goal Directed Speech Production: Normal Speech Rate: Normal Speech Articulation: Normal Thought Content: Perseveration Danger to Self/Suicidal Ideati: None Danger to Others: None Delusions: Paranoid (Endorses, mild) Consciousness: Alert Orientation: Person, Place, Date, Situation Memory: Grossly Intact Estimate Intellectual Function: Average Basis for IQ estimate: Awareness current events Attention/Concentration & Cogn: Impaired Insight: Limited Judgement: Limited Mental Health Plan The patient is a 71-year-old white female, who has been treated it sounds like bipolar mood disorder and psychosis for several decades by a primary care physician that she has felt comfortable with. She has been medication noncompliant and has not taking any medication for several months. For the past six weeks, she reported poor sleep, and family and friends were noticing increasing distractibility and a decreased ability to take care of herself. When police arrived, they noted her apartment was extremely in disarray and that client was delusional, labile and tangential in her speech. Today Jaci reports having good thought organization and mood stability. She has been active and participating well in one-to-one unit and group activities. She slept 10 hours over the past 24 and denies depression manic or psychotic symptoms review. Her house has been condemned by the [facility] but she is unwilling or unable to acknowledge this. She denies medication side effects. We are trying to find placement for her in a setting where she can have her medications monitored And have help with activities of daily living. [place] AXIS I Psychosis unspecified vs. Schizoaffective disorder, bipolar type AXIS II Defer. AXIS III 1. Congestive heart failure. 2. Peripheral neuropathy. 3. Lower extremity edema. 4. History of respiratory failure with intubation May 2014. AXIS IV Unknown. AXIS V 45 Medications Abilify 30mg daily Citalopram 20mg daily Hydroxyzine 25 mg every 6 hours when necessary itching Atorvastatin 10 mg nightly Famotidine 20 mg daily when necessary Ferrous Gluconate 324mg po bid Gabapentin 400 mg 3 times a day Guaifenesin 600 mg every 12 hours Potassium chloride 20meq po daily Lisinopril 20 mg po daily Metoprolol 25 mg daily. Mupirocin nasal 3 times a day Nystatin topical twice a day Percocet 5-325 every 6 hours when necessary pain Potassium chloride 20 mEq daily Sodium chloride nasal spray Triamcinolone topical twice daily Vitamin B12 injection monthly Treatments Jaci is being provided with a high degree of safety through our unit structure and active adult engagement provided by our mental health professionals, mental health technicians, psychiatric nurses and myself. We are focusing on developing improved coping skills and identifying stressors that may have led to current episode. We will attempt to: * Integrate into therapeutic groups, milieu and individual therapy. * Maintain in a closely monitored and structured unit * Provide low-stimulation environment * Obtain collateral data to assist in treatment planning * Assess degree of lability of affect and impulse control * Complete safety plan * Decrease frequency of relapse and need for re-hospitalization * Denies thoughts of harm to self and/or others * Establish a consistent sleep pattern * Medication effective in stabilization of mood and/or thought process * Reduce the risk of imminent harm to self and/or others by providing a safe environment * Tolerates medication without side effects Patient will be on the following psychiatric medications: Abilify 30mg daily Citalopram 20mg daily Patient's legal status Patient is on a 14 day involuntary treatment hold. Patient will be given the opportunity to talk to her jewelry facer and the juvenile court judge Anticipated number of hospital days to achieve above goals: 0 Disposition: Assisted care living, possibly [facility] Jose Davies MD Mar 29, 2017 12:38
--- NOTE | 2017-03-29 14:37 | NUR ---
Nursing note: Pt has been the social butterfly of the unit, giving hand massages, offering comfort and encouragement, fluffing pillows. She is decorated lavishly w/ numerous costume costume changes. She reports her mood as "I'm always happy!" Reviewed her safety plan with her and one of her planswas: "Oh I can call Dr. Davies any time night or day. He's taken me under his wing." She also tells us that she is renting out several of her 'efficiency apartments' to different patients. She denies any thought disturbance. It was planned for her to DC today but there were problems with placement and she was fine with the delay
--- NOTE | 2017-03-29 15:14 | NUR ---
Obs Dayshift Pt is engaging well w/ peers, preparing to DC this week. Participates, appropriate most of the time, needing redirection at times from staff regarding poor boundaries w/ peers. Pt is hopeful, states that she is happy 10/10 mood. Pt states as part of her DC she is giving people "presents" making bracelets for peers and staff, drawing, etc. Pt is appreciative, calm, at times inappropriate laughter, napping in the milieu or out on the patio. Ok ADL's, Good meals
[2017-03-29] MEDS: hydrOXYzine Pamoate 25 mg Capsule PO PRN (23:31)
--- NOTE | 2017-03-30 05:14 | NUR ---
Observations 1900 - 0700 Pt was observed to be flat, content, minimally social and was in and out of her room most of the evening. Pt was pleasant, polite and cooperative when approached. Pt maintained behavior throughout the shift. Pt speech and eye contact was ok. Pt watched some TV before bed. Pt attended wrap up group and stated that she is hoping to discharge soon. Pt rated her mood 9/10, with 10 being the best. Pt ate snack. Pt first appeared asleep at 2200 and has had broken sleep, up and down a couple times throughout the night. Pt was observed every 15 minutes through the night as ordered.
--- NOTE | 2017-03-30 06:05 | NUR ---
Sleep Broken sleep of 6.25 hours. Pt remains pleasant and cooperative while awake.
--- NOTE | 2017-03-30 08:55 | NUR ---
nursing notes: Pt began the beginning of the shift with nausea and vomiting: This was clear/yellowish with white pieces and pt states she was up at 0230 and had a banana and felt ok then but woke this am "feeling terrible". She complains of 'bad' LLQ pain, a migraine ASTORGA, weakness, chills and nausea continues with episode of heaving with yellows clear fluids Addendum: 03/30/17 at 1116 by TRAVIS MACKAY RN cont'd: obtained order for Zofran; VS 164/85, 85 and afebrile. 0940: Pt then had episode of diarrhea :"I'm dying! Call 911!" 105 pt appears to be sleeping before I could get her her Zofran
[2017-03-30] MEDS: Mupirocin 2% 22 Gm Ointment NASAL SCH ×2 (09:13→14:54)
[2017-03-30] MEDS: Nystatin 100,000 Unit/Gm 15 Gm Powder TOPICAL SCH (09:13)
[2017-03-30] MEDS: Triamcinolone 0.1% 30 Gm Cream TOPICAL SCH (09:14)
[2017-03-30] MEDS: Amoxicillin-Clav 875-125 mg Tablet PO SCH ×2 (12:30→21:21)
[2017-03-30] MEDS: Potassium Chloride 20 mEq SR Tablet PO SCH (12:30)
[2017-03-30] MEDS: MeTOProlol XL 25 mg ER24 Tablet PO SCH (12:31)
[2017-03-30] MEDS: guaiFENesin 600 mg ER12 Tablet PO SCH ×2 (12:31→21:21)
--- NOTE | 2017-03-30 12:59 | NUR ---
cont'd 1300. Pt is up and dressed after an episode of diarrhea/incontinence and clothes change.She says this is watery as opposed to pudding-like, and says it has been about 10 times(probably not that much). Now has an appetite and ordered chicken broth/soup and a half sandwich per her request. C/O of 'brain ASTORGA' but declines medication now b/c of her stomach. She had Zofran and has not had emesis for several hours now and is taking fluids, eating potato chips and smiling and then went to group.
[2017-03-30 13:29] VITALS: BP 163/85; PULSE 81; RESP 18
--- NOTE | 2017-03-30 14:41 | PCM.PNPSY ---
Subjective Date of Service Mar 30, 2017 Subjective I spent 30 minutes both reviewing treatment plan with our clinical team, interviewing the patient and providing supportive/educational psychotherapy. I spent less than 50% of the time counseling the patient as she was feeling poorly and did not want to have a therapy session today. She is complaining of stomach pain and nausea. She states she is having a difficult time getting down fluids and feels like she is sick. Jaci did report a continued improvement in thought organization and mood stability and is still requesting discharge. Staff reports that she had been active and participating appropriately in one-to-one unit and group activities before becoming sick this past 12 hours.. She slept 6 hours at night and is napping several hours during the day. She denies depression manic or psychotic symptoms review. She denies medication side effects Current Medications Current Medications Ondansetron HCl 4 mg Q6 PRN PO Last administered on 03/30/17t 11:58; Admin Dose 4 MG; Start 03/30/17 at 10:20 Mental Status Exam Vital Signs Vital Signs Date Time Temp Pulse Resp B/P Pulse Ox O2 Delivery O2 Flow Rate FiO2 03/30/17 13:29 36.8 81 18 163/85 Appearance: Neat/well groomed Attitude: Pleasant, Cooperative Behavior: Distractible Affect: Well Modulated/Appropriate Mood: Euthymic Thought Process/Associations: Logical/Sequential, Goal Directed Speech Production: Normal Speech Rate: Normal Speech Articulation: Normal Thought Content: Perseveration Danger to Self/Suicidal Ideati: None Danger to Others: None Delusions: Paranoid (Endorses, mild) Consciousness: Alert Orientation: Person, Place, Date, Situation Memory: Grossly Intact Estimate Intellectual Function: Average Basis for IQ estimate: Awareness current events Attention/Concentration & Cogn: Impaired Insight: Limited Judgement: Limited Strengths/Assets Physical exam: Abdomen soft nontender no rebound tenderness Mental Health Plan The patient is a 71-year-old white female, who has been treated it sounds like bipolar mood disorder and psychosis for several decades by a primary care physician that she has felt comfortable with. She has been medication noncompliant and has not taking any medication for several months. For the past six weeks, she reported poor sleep, and family and friends were noticing increasing distractibility and a decreased ability to take care of herself. When police arrived, they noted her apartment was extremely in disarray and that client was delusional, labile and tangential in her speech. Today Jaci reports having good thought organization and mood stability but is feeling physically sick. She is having some nausea and is feeling like taking a nap. Prior to feeling ill She has been active and participating well in one-to-one unit and group activities. She slept 9 hours over the past 24 and denies depression manic or psychotic symptoms review. Her house has been condemned by the [facility] but she is unwilling or unable to acknowledge this. She denies medication side effects. We are trying to find placement for her in a setting where she can have her medications monitored And have help with activities of daily living. I encouraged her to rest today and to take as much fluid as possible. I will order a CBC and a UA for the a.m. [place] AXIS I Psychosis unspecified vs. Schizoaffective disorder, bipolar type AXIS II Defer. AXIS III 1. Congestive heart failure. 2. Peripheral neuropathy. 3. Lower extremity edema. 4. History of respiratory failure with intubation May 2014. AXIS IV Unknown. AXIS V 45 Medications Abilify 30mg daily Citalopram 20mg daily Hydroxyzine 25 mg every 6 hours when necessary itching Atorvastatin 10 mg nightly Famotidine 20 mg daily when necessary Ferrous Gluconate 324mg po bid Gabapentin 400 mg 3 times a day Guaifenesin 600 mg every 12 hours Potassium chloride 20meq po daily Lisinopril 20 mg po daily Metoprolol 25 mg daily. Mupirocin nasal 3 times a day Nystatin topical twice a day Percocet 5-325 every 6 hours when necessary pain Potassium chloride 20 mEq daily Sodium chloride nasal spray Triamcinolone topical twice daily Vitamin B12 injection monthly Treatments Jaci is being provided with a high degree of safety through our unit structure and active adult engagement provided by our mental health professionals, mental health technicians, psychiatric nurses and myself. We are focusing on developing improved coping skills and identifying stressors that may have led to current episode. We will attempt to: * Integrate into therapeutic groups, milieu and individual therapy. * Maintain in a closely monitored and structured unit * Provide low-stimulation environment * Obtain collateral data to assist in treatment planning * Assess degree of lability of affect and impulse control * Complete safety plan * Decrease frequency of relapse and need for re-hospitalization * Denies thoughts of harm to self and/or others * Establish a consistent sleep pattern * Medication effective in stabilization of mood and/or thought process * Reduce the risk of imminent harm to self and/or others by providing a safe environment * Tolerates medication without side effects Patient will be on the following psychiatric medications: Abilify 30mg daily Citalopram 20mg daily Labs: A.M. CBC electrolytes UA Patient's legal status Patient is on a 14 day involuntary treatment hold. Patient will be given the opportunity to talk to her high school music director and the diving judge Anticipated number of hospital days to achieve above goals: 0 Disposition: Assisted care living, possibly [facility] Jose Davies MD Mar 30, 2017 14:41
--- NOTE | 2017-03-30 15:03 | NUR ---
Manager Purchasing/Counselor S:"I'm not feeling well today." A: Patient does not have SI or HI, reports no auditory or visual hallucinations, and does not have any anxiety or depression. Patient slept for 6.25 hours and has had an upset stomach, nausea, vomiting, and diarrhea today. A: Despite not feeling well, patient attended group and was in a good mood considering her stomach troubles. She engaged in conversation with continuous pillowcase cutter, staff and other patients. P:Follow care plan and coordinate with outpatient providers. Monitor behavior as needed. Patient is scheduled to be discharged by tuesday. 04/01/2017.
--- NOTE | 2017-03-30 18:40 | NUR ---
[facility] Day Shift Pt affect and behavior appears mostly unchanged from previous shifts. Pt maintained behavioral control throughout the shift. Pt affect appears bright, though pt reports she is not feeling well in the AM (pt observed vomiting in the AM). Pt spends most of the shift resting in her room or interacting with peers in the dining room. Pt is pleasant and appropriate with staff and peers when active on the unit. Pt speech and thought content appear tangential, occasionally nonsensical (though much less so than noted on previous shifts). Pt did not attend any group activities throughout the shift. Pt continues to use various unit amenities as "makeup." Pt attended all meals and ate approx 60-80% of all meals.
--- NOTE | 2017-03-30 19:05 | NUR ---
Nurses note - afternoon Pt's nausea/vomiting/diarrhea resolved. Ate dinner tonight in the dining room but has been resting for much of the day. will continue to monitor.
[2017-03-30] MEDS: Benzocaine-Menthol Lozenge 2/Pkg PO PRN (19:34)
[2017-03-30 22:37] LABS: APPEARANCE,URINE CLEAR (CLEAR,HAZY); COLOR,URINE YELLOW (YELLOW); OCCULT BLOOD,URINE NEGATIVE (NEGATIVE); PH,URINE 5.5 (5.0-8.0); UROBILINOGEN,URINE NORMAL (NORMAL)
--- NOTE | 2017-03-31 04:46 | NUR ---
Nursing Noc Pt busy in Milieu, noted to have many friends here on unit and participating in all activities. Reported vomitting and diarrhea earlier in day but reports has resolved this shift. UA sample obtained this shift. Pt tolerating PO with good appetite, Noted to be first asleep at 2215, up for couple of hours socializing then back to sleep at 0300. Continuing to monitor mood behavior and emotioal state. Q15 minute safety checks performed throughout the shift as directed. BHCP
[2017-03-31 08:20] LABS: Mean Corpuscular Hemoglobin 31.7 pg (27.0-35.0); Mean Corpuscular Volume 99.1 fL (81-100)
[2017-03-31] MEDS: Potassium Chloride 20 mEq SR Tablet PO SCH (08:33)
[2017-03-31] MEDS: guaiFENesin 600 mg ER12 Tablet PO SCH ×2 (08:34→20:38)
[2017-03-31] MEDS: MeTOProlol XL 25 mg ER24 Tablet PO SCH (08:35)
[2017-03-31] MEDS: Triamcinolone 0.1% 30 Gm Cream TOPICAL SCH ×2 (08:36→20:47)
[2017-03-31] MEDS: Nystatin 100,000 Unit/Gm 15 Gm Powder TOPICAL SCH ×2 (08:36→20:48)
[2017-03-31] MEDS: Amoxicillin-Clav 875-125 mg Tablet PO SCH ×2 (08:46→20:37)
[2017-03-31] MEDS: Mupirocin 2% 22 Gm Ointment NASAL SCH ×3 (08:46→20:46)
--- NOTE | 2017-03-31 12:20 | NUR ---
NURSING DAYS 7-7 S-Patient states "I have four newman sinks at home do you want one? A Armenian lady gave them to me. Here have a prayer bracelet. I am leaving today, Jeronimo is coming to get me" O-Patient appears upbeat and social with staff and patients. Eating and drinking, flights of delusional thoughts. A-Patient informed that she will be discharged tomorrow. Reoriented to plan of care. P-d/c Tuesday, possible halfway run by Maria G until son can make living arrangement at home safe and clean.
[2017-03-31 13:01] VITALS: BP 146/60; PULSE 62; RESP 16
--- NOTE | 2017-03-31 14:12 | PCM.PNPSY ---
Subjective Date of Service Mar 31, 2017 Subjective I spent 30 minutes both reviewing treatment plan with our clinical team, interviewing the patient and providing supportive/educational psychotherapy. I spent more than 50% of the time counseling the patient. She is no longer complaining of stomach pain and nausea. She states she is having a difficult time getting down fluids and feels like she is sick. Jaci did report a continued improvement in thought organization and mood stability and is still requesting discharge. Staff reports that she had been active and participating appropriately in one-to-one unit and group activities. She slept 6 hours at night and is napping several hours during the day. She denies depression manic or psychotic symptoms review. She denies medication side effects Current Medications Current Medications Clotrimazole 1 applic BID TOPICAL Last administered on 03/31/17 08:36; Admin Dose 1 APPLIC; Start 03/31/17 at 08:30 Ferrous Gluconate 324 mg BID PO Last administered on 03/31/17 08:33; Admin Dose 324 MG; Start 03/31/17 at 08:30 Mupirocin 1 applic TID NASAL Last administered on 03/31/17 08:46; Admin Dose 1 APPLIC; Start 03/31/17 at 08:30 Nystatin 1 applic BID TOPICAL Last administered on 03/31/17 08:36; Admin Dose 1 APPLIC; Start 03/31/17 at 08:30 Ondansetron HCl 4 mg Q6 PRN PO Last administered on 03/30/17 11:58; Admin Dose 4 MG; Start 03/30/17 at 10:20 Triamcinolone Acetonide 1 applic BID TOPICAL Last administered on 03/31/17 08:36 ; Admin Dose 1 APPLIC; Start 03/31/17 at 08:30 Mental Status Exam Vital Signs Vital Signs Date Time Temp Pulse Resp B/P Pulse Ox O2 Delivery O2 Flow Rate FiO2 03/31/17 13:01 36.7 62 16 146/60 Appearance: Neat/well groomed Attitude: Pleasant, Cooperative Behavior: Distractible Affect: Well Modulated/Appropriate Mood: Euthymic Thought Process/Associations: Logical/Sequential, Goal Directed Speech Production: Normal Speech Rate: Normal Speech Articulation: Normal Thought Content: Perseveration Danger to Self/Suicidal Ideati: None Danger to Others: None Delusions: Paranoid (Endorses, mild) Consciousness: Alert Orientation: Person, Place, Date, Situation Memory: Grossly Intact Estimate Intellectual Function: Average Basis for IQ estimate: Awareness current events Attention/Concentration & Cogn: Impaired Insight: Limited Judgement: Limited Result Diagram: 03/31/17 0803 03/30/17 2743 Mental Health Plan Now The patient is a 71-year-old white female, who has been treated it sounds like bipolar mood disorder and psychosis for several decades by a primary care physician that she has felt comfortable with. She has been medication noncompliant and has not taking any medication for several months. For the past six weeks, she reported poor sleep, and family and friends were noticing increasing distractibility and a decreased ability to take care of herself. When police arrived, they noted her apartment was extremely in disarray and that client was delusional, labile and tangential in her speech. Today Jaci reports having good thought organization and mood stability but is feeling physically sick. She is having some nausea and is feeling like taking a nap. Prior to feeling ill She has been active and participating well in one-to-one unit and group activities. She slept 9 hours over the past 24 and denies depression manic or psychotic symptoms review. Her house has been condemned by the [facility] but she is unwilling or unable to acknowledge this. She denies medication side effects. We are trying to find placement for her in a setting where she can have her medications monitored And have help with activities of daily living. [place] AXIS I Psychosis unspecified vs. Schizoaffective disorder, bipolar type AXIS II Defer. AXIS III 1. Congestive heart failure. 2. Peripheral neuropathy. 3. Lower extremity edema. 4. History of respiratory failure with intubation May 2014. AXIS IV Unknown. AXIS V 45 Medications Abilify 30mg daily Citalopram 20mg daily Hydroxyzine 25 mg every 6 hours when necessary itching Atorvastatin 10 mg nightly Famotidine 20 mg daily when necessary Ferrous Gluconate 324mg po bid Gabapentin 400 mg 3 times a day Guaifenesin 600 mg every 12 hours Potassium chloride 20meq po daily Lisinopril 20 mg po daily Metoprolol 25 mg daily. Mupirocin nasal 3 times a day Nystatin topical twice a day Percocet 5-325 every 6 hours when necessary pain Potassium chloride 20 mEq daily Sodium chloride nasal spray Triamcinolone topical twice daily Vitamin B12 injection monthly Treatments Jaci is being provided with a high degree of safety through our unit structure and active adult engagement provided by our mental health professionals, mental health technicians, psychiatric nurses and myself. We are focusing on developing improved coping skills and identifying stressors that may have led to current episode. We will attempt to: * Integrate into therapeutic groups, milieu and individual therapy. * Maintain in a closely monitored and structured unit * Provide low-stimulation environment * Obtain collateral data to assist in treatment planning * Assess degree of lability of affect and impulse control * Complete safety plan * Decrease frequency of relapse and need for re-hospitalization * Denies thoughts of harm to self and/or others * Establish a consistent sleep pattern * Medication effective in stabilization of mood and/or thought process * Reduce the risk of imminent harm to self and/or others by providing a safe environment * Tolerates medication without side effects Patient will be on the following psychiatric medications: Abilify 30mg daily Citalopram 20mg daily Labs: A.M. CBC electrolytes UA Patient's legal status Patient is on a 14 day involuntary treatment hold. Patient will be given the opportunity to talk to her law writer and the customer service advisor Anticipated number of hospital days to achieve above goals: 0 Disposition: Assisted care living, possibly [facility] [place] Jose Davies MD Mar 31, 2017 14:12
--- NOTE | 2017-03-31 18:31 | NUR ---
dependency case manager/Counselor: S: "I'm going to bake some pies and cookies and make a big breakfast when I go home." O: Patient slept 5.5+ hours last night per staff. Patient denies S/I and H/I. She also denies auditory and visual hallucinations. Depression is 0/10 and anxiety is 0/10. When asked her mood, patient stated, "I'm happy today." A: Patient is cooperative, disheveled, bright, hopeful, limited insight, limited judgment. P: Follow care plan, coordinate with out-patient providers.
--- NOTE | 2017-03-31 18:45 | NUR ---
[facility] Day Shift Pt affect and behavior appears mostly unchanged from previous shifts. Pt maintained behavioral control throughout the shift. Pt affect appears bright. Pt spends most of the shift resting in her room or interacting with peers in the dining room. Pt is pleasant and appropriate with staff and peers when active on the unit. Pt speech and thought content appear tangential, occasionally nonsensical (though much less so than noted on previous shifts). Pt did not attend any group activities throughout the shift. Pt continues to use various unit amenities as "makeup." Pt attended all meals and ate approx 60-80% of all meals.
[2017-03-31] MEDS: Benzocaine-Menthol Lozenge 2/Pkg PO PRN (19:34)
--- NOTE | 2017-04-01 03:16 | NUR ---
nursing, nights, 11-7 s- will you get me my asprin ? i need a cup and something for my diverticulitis. thank you. o- has appeared to sleep after 2230. up at 0145 and received 650 mg of asprin and a small snack. has appeared to sleep after 0300. assessed q 15 minutes. a- pleasant, no apparent distress. p- monitor behavior/emotional state, quality, times and amount of sleep, use and effect of medication. marbella
[2017-04-01] MEDS: Mupirocin 2% 22 Gm Ointment NASAL SCH ×3 (08:22→20:47)
[2017-04-01] MEDS: Potassium Chloride 20 mEq SR Tablet PO SCH (08:23)
[2017-04-01] MEDS: Amoxicillin-Clav 875-125 mg Tablet PO SCH ×2 (08:23→21:21)
[2017-04-01] MEDS: MeTOProlol XL 25 mg ER24 Tablet PO SCH (08:24)
[2017-04-01] MEDS: guaiFENesin 600 mg ER12 Tablet PO SCH ×2 (08:24→21:21)
[2017-04-01] MEDS: Triamcinolone 0.1% 30 Gm Cream TOPICAL SCH ×2 (08:24→21:22)
[2017-04-01] MEDS: Nystatin 100,000 Unit/Gm 15 Gm Powder TOPICAL SCH ×2 (08:39→21:22)
[2017-04-01] MEDS: Benzocaine-Menthol Lozenge 2/Pkg PO PRN ×2 (09:01→20:02)
--- NOTE | 2017-04-01 11:14 | PCM.PNPSY ---
Subjective Date of Service Apr 01, 2017 Subjective I spent 30 minutes both reviewing treatment plan with our clinical team, interviewing the patient and providing supportive/educational psychotherapy. I spent more than 50% of the time counseling the patient. She is no longer complaining of stomach pain and nausea. Jaci did report a continued improvement in thought organization and mood stability and is still requesting discharge. Staff reports that she had been active and participating appropriately in one-to-one unit and group activities. She is able to attend to her activities of daily living needs with minimal redirection. She slept 6 hours at night and is napping several hours during the day. She denies depression manic or psychotic symptoms review. She denies medication side effects Current Medications Current Medications Citalopram Hydrobromide 20 mg DAILY PO Last administered on 04/01/17 08:23; Admin Dose 20 MG; Start 04/01/17 at 08:30 Clotrimazole 1 applic BID TOPICAL Last administered on 04/01/17 08:39; Admin Dose 1 APPLIC; Start 03/31/17 at 08:30 Ferrous Gluconate 324 mg BID PO Last administered on 04/01/17 08:23; Admin Dose 324 MG; Start 03/31/17 at 08:30 Metoprolol Succinate 25 mg DAILY PO Last administered on 04/01/17 08:24; Admin Dose 25 MG; Start 04/01/17 at 08:30 Mupirocin 1 applic TID NASAL Last administered on 04/01/17 08:22; Admin Dose 1 APPLIC; Start 03/31/17 at 08:30 Nystatin 1 applic BID TOPICAL Last administered on 04/01/17 08:39; Admin Dose 1 APPLIC; Start 03/31/17 at 08:30 Potassium Chloride 20 meq DAILY PO Last administered on 04/01/17 08:23; Admin Dose 20 MEQ; Start 04/01/17 at 08:30 Triamcinolone Acetonide 1 applic BID TOPICAL Last administered on 04/01/17 08:24 ; Admin Dose 1 APPLIC; Start 03/31/17 at 08:30 Mental Status Exam Appearance: Neat/well groomed Attitude: Pleasant, Cooperative Behavior: Distractible Affect: Well Modulated/Appropriate Mood: Euthymic Thought Process/Associations: Logical/Sequential, Goal Directed Speech Production: Normal Speech Rate: Normal Speech Articulation: Normal Thought Content: Perseveration Danger to Self/Suicidal Ideati: None Danger to Others: None Delusions: Paranoid (Endorses, mild) Consciousness: Alert Orientation: Person, Place, Date, Situation Memory: Grossly Intact Estimate Intellectual Function: Average Basis for IQ estimate: Awareness current events Attention/Concentration & Cogn: Impaired Insight: Limited Judgement: Limited Result Diagram: 03/31/17 0803 03/30/17 5921 Mental Health Plan The patient is a 71-year-old white female, who has been treated it sounds like bipolar mood disorder and psychosis for several decades by a primary care physician that she has felt comfortable with. She has been medication noncompliant and has not taking any medication for several months. For the past six weeks, she reported poor sleep, and family and friends were noticing increasing distractibility and a decreased ability to take care of herself. When police arrived, they noted her apartment was extremely in disarray and that client was delusional, labile and tangential in her speech. Her house has been condemned by the [facility] but she is unwilling or unable to acknowledge this. She denies medication side effects. We are trying to find placement for her in a setting where she can have her medications monitored And have help with activities of daily living. Her psychiatric condition is essentially stabilized and we are hoping to maintain the gains by having good disposition planning. [place] AXIS I Psychosis unspecified vs. Schizoaffective disorder, bipolar type AXIS II Defer. AXIS III 1. Congestive heart failure. 2. Peripheral neuropathy. 3. Lower extremity edema. 4. History of respiratory failure with intubation May 2014. AXIS IV Unknown. AXIS V 45 Medications Abilify 30mg daily Citalopram 20mg daily Hydroxyzine 25 mg every 6 hours when necessary itching Atorvastatin 10 mg nightly Famotidine 20 mg daily when necessary Ferrous Gluconate 324mg po bid Gabapentin 400 mg 3 times a day Guaifenesin 600 mg every 12 hours Potassium chloride 20meq po daily Lisinopril 20 mg po daily Metoprolol 25 mg daily. Mupirocin nasal 3 times a day Nystatin topical twice a day Percocet 5-325 every 6 hours when necessary pain Potassium chloride 20 mEq daily Sodium chloride nasal spray Triamcinolone topical twice daily Vitamin B12 injection monthly Treatments Jaci is being provided with a high degree of safety through our unit structure and active adult engagement provided by our mental health professionals, mental health technicians, psychiatric nurses and myself. We are focusing on developing improved coping skills and identifying stressors that may have led to current episode. We will attempt to: * Integrate into therapeutic groups, milieu and individual therapy. * Maintain in a closely monitored and structured unit * Provide low-stimulation environment * Obtain collateral data to assist in treatment planning * Assess degree of lability of affect and impulse control * Complete safety plan * Decrease frequency of relapse and need for re-hospitalization * Denies thoughts of harm to self and/or others * Establish a consistent sleep pattern * Medication effective in stabilization of mood and/or thought process * Reduce the risk of imminent harm to self and/or others by providing a safe environment * Tolerates medication without side effects Patient will be on the following psychiatric medications: Abilify 30mg daily Citalopram 20mg daily Labs: A.M. CBC electrolytes UA Patient's legal status Patient is on a 14 day involuntary treatment hold. Patient will be given the opportunity to talk to her program clerk and the aquatics director Anticipated number of hospital days to achieve above goals: 0 Disposition: Assisted care living, possibly [facility] or [facility] house Jose Davies MD Apr 01, 2017 11:14
[2017-04-01 13:21] VITALS: BP 125/69; PULSE 55; RESP 16
--- NOTE | 2017-04-01 18:06 | NUR ---
[facility] Day Shift Pt affect and behavior unchanged from previous shifts. Pt maintained behavioral control throughout the shift. Pt affect appears bright, occasionally over-friendly. Pt spends most of the shift resting in her room or interacting with peers in the dining room. Pt is pleasant and appropriate with staff and peers when active on the unit. Pt speech and thought content appear tangential, occasionally nonsensical. Pt did not attend any group activities throughout the shift. Pt continues to use various unit amenities as "makeup." Pt attended all meals and ate approx 60-80% of all meals.
--- NOTE | 2017-04-01 20:32 | NUR ---
proposal manager/Counselor: S: "I need to pay my rent or I'm going to lose my home." O: Patient slept 6 hours last night per staff. Patient denies S/I and H/I. She also denies auditory and visual hallucinations. Depression is 0/10 and anxiety is 0/10, but patient is worried about paying rent with an [employer] card that only she can use. This commercial loan underwriter faxed an Intake And Referral Form to [facility]. This commercial loan underwriter also spoke to Roseanne Olivares's molding room supervisor. [facility] main office will call [facility] when an assessment can be done. Roseanne Olivares's molding room supervisor stated that Roseanne will be assigned to patient's case. A: Patient is cooperative, disheveled, bright, hopeful, limited insight, limited judgment. P: Follow care plan, coordinate with out-patient providers.
--- NOTE | 2017-04-02 04:45 | NUR ---
Nursing notes: slot shift supervisor Patient noted to be sleeping at start of shift, but awake from -329. Patient smiles on approach "I am a night owl" Patient had snack, sat in DR, requested pain pill ( Ibuprofen 600mg) at 314. Patient returned to room and noted to be snoring loudly at 329.
[2017-04-02] MEDS: Amoxicillin-Clav 875-125 mg Tablet PO SCH (08:49)
[2017-04-02] MEDS: Potassium Chloride 20 mEq SR Tablet PO SCH (08:50)
[2017-04-02] MEDS: MeTOProlol XL 25 mg ER24 Tablet PO SCH (08:50)
[2017-04-02] MEDS: guaiFENesin 600 mg ER12 Tablet PO SCH ×2 (08:50→21:08)
[2017-04-02] MEDS: Mupirocin 2% 22 Gm Ointment NASAL SCH ×3 (09:28→21:25)
[2017-04-02] MEDS: Triamcinolone 0.1% 30 Gm Cream TOPICAL SCH ×2 (09:28→21:23)
[2017-04-02] MEDS: Nystatin 100,000 Unit/Gm 15 Gm Powder TOPICAL SCH ×2 (09:29→21:25)
--- NOTE | 2017-04-02 10:16 | NUR ---
day shift nursing note S/O-"I am glad I am out of that hallway because this room is quieter and I feel calmer....I do not like two of the patients here that make so much noise at night." Pt. was found in another patient's room early in the morning trying to wake her up. Pt. was redirected out of the room and the other pt. was not annoyed. She has been quiet, pleasant and cooperative. She reported she had an upset stomach but was able to take her meds with pudding. She denies SI, HI or any hallucinations. She denies anxiety or depression. A-Brighter. Limited insight and judgment. Getting to baseline. P-Monitor for safety per protocol. Assess efficacy of meds to manage psychosis. Encourage engagement in milieu.
--- NOTE | 2017-04-02 17:02 | NUR ---
Steward/Stewardess Chief Cargo Vessel/Counselor S:"I'm always doing good." A: Patient does not have SI or HI, reports no auditory or visual hallucinations, and does not have any anxiety or depression. A: Patient participated in group and was very chatty. She stated that she was coughing up some phlegm, and was ready to go home any second. P:Follow care plan and coordinate with outpatient providers.
--- NOTE | 2017-04-02 17:13 | PCM.PNPSY ---
Subjective Date of Service Apr 02, 2017 Subjective The patient reports that "I do not have any aphids anywhere on my bottom." The patient states that she is "still looking for a place to stay, that placed behind the [facility] or friendship house. I want to stay on that new antibiotic." She reports that she is breathing better now that she is back in a hospital bed with elevated head. She denied any side effects and was looking forward to discharge to the community. She offered this handbook writer a salad, a brace that she had made, some beads, and an apple with a small defect which she suggested I "bite out and then you can eat the rest." Sleep: 5 hours+ Appetite: "Good." Suicidal and homicidal ideation: denies Auditory hallucinations: denies Visual hallucinations: denies Other Psychotic Symptoms: N/A Anxiety: 0/10 Depression: 0/10 Current Medications Current Medications Citalopram Hydrobromide 20 mg DAILY PO Last administered on 04/02/17 08:49; Admin Dose 20 MG; Start 04/01/17 at 08:30 Metoprolol Succinate 25 mg DAILY PO Last administered on 04/02/17 08:50; Admin Dose 25 MG; Start 04/01/17 at 08:30 Potassium Chloride 20 meq DAILY PO Last administered on 04/02/17 08:50; Admin Dose 20 MEQ; Start 04/01/17 at 08:30 Mental Status Exam Appearance: Neat/well groomed Attitude: Pleasant, Cooperative Behavior: Distractible Affect: Well Modulated/Appropriate Mood: Euthymic Thought Process/Associations: Logical/Sequential, Goal Directed Speech Production: Normal Speech Rate: Normal Speech Articulation: Normal Thought Content: Perseveration Danger to Self/Suicidal Ideati: None Danger to Others: None Consciousness: Alert Orientation: Person, Place, Date, Situation Memory: Grossly Intact Estimate Intellectual Function: Average Basis for IQ estimate: Awareness current events Attention/Concentration & Cogn: Impaired Insight: Limited Judgement: Limited Result Diagram: 03/31/17 0803 03/30/17 9033 Mental Health Plan The patient is a 71-year-old white female, who has been treated for bipolar disorder and psychosis for several decades by her primary care physician. She has been medication noncompliant and has not been taking any medication for several months. For the six weeks prior to admission, she had been experiencing poor sleep, and family and friends were noticing increasing distractibility and a decreased ability to take care of herself. When police arrived, they noted her home was in severe disarray and that it could no longer be inhabited. On admission, the patient was noted to be delusional, labile and tangential in her speech. On the unit, the patient has been bright and pleasant with sometimes vibrant makeup/dress and usually offering "gifts" to the treatment team. The patient has been responding to her current antipsychotic, aripiprazole with improved organization and decreased paranoia. The counselor is currently working on helping the patient with housing but as yet none's been found. It is anticipated that the patient will likely go to [facility]. [place] AXIS I Psychosis unspecified vs. Schizoaffective disorder, bipolar type AXIS II Defer. AXIS III 1. Congestive heart failure. 2. Peripheral neuropathy. 3. Lower extremity edema. 4. History of respiratory failure with intubation May 2014. AXIS IV Unknown. AXIS V 45 Medications Abilify 30mg daily Citalopram 20mg daily Amoxicillin clavulanate 1 tablet twice a day completes on 04/02/2017 Atorvastatin 10 mg nightly Clotrimazole 1% cream Ferrous Gluconate 324mg po bid Furosemide 20 mg daily Gabapentin 400 mg 3 times a day Guaifenesin 600 mg every 12 hours Lisinopril 20 mg po daily Metoprolol 25 mg daily. Mupirocin nasal 3 times a day Nystatin topical twice a day Potassium chloride 20meq po daily Potassium chloride 20 mEq daily Sodium chloride nasal spray Triamcinolone topical twice daily Vitamin B12 injection monthly Fluticasone 1 spray twice a day as needed Ibuprofen 600 mg 3 times a day as needed Ondansetron 4 mg every 6 hours as needed for nausea Treatments 1. The patient is admitted to the inpatient unit and will be provided a safe and secure environment. 2. The patient is denying current active suicidality and is not in need of a one-to-one at this time. He is agreeing to notify us should he have any acute suicidal or homicidal thoughts. 3. The patient is encouraged to participate with group and milieu activities. 4. The patient will be seen by the treatment team on a daily basis to assess symptoms, side effects and response to treatment. 5. Continue current medications. 6. Appreciate internal medicine consult and management. 7. Awaiting discharge options such as friendship house or other similar. 8. Patient will likely leave early next week once housing located. Tuan Barragan MD Apr 02, 2017 17:13 * Denies thoughts of harm to self and/or others * Establish a consistent sleep pattern * Medication effective in stabilization of mood and/or thought process * Reduce the risk of imminent harm to self and/or others by providing a safe environment * Tolerates medication without side effects Patient will be on the following psychiatric medications: Abilify 30mg daily Citalopram 20mg daily Labs: A.M. CBC electrolytes UA Patient's legal status Patient is on a 14 day involuntary treatment hold. Patient will be given the opportunity to talk to her lift operator and the tax professional Anticipated number of hospital days to achieve above goals: 0 Disposition: Assisted care living, possibly [facility] or friendship house Tuan Barragan MD Apr 02, 2017 17:13
[2017-04-02] MEDS ORDERED: ARIPiprazole 10 mg Tablet PO ONE ×2 (21:07→21:30)
--- NOTE | 2017-04-02 22:29 | NUR ---
Nurses Note Evening Patient remains pleasant and cooperative. Her thoughts have been coherent and relevant most of the time with periods of odd beliefs, i.e. "aphids in my toe, my teeth are growing back in and my tonsil is growing outside my neck." Patient remains medication compliant without adverse effects. Her hygiene,appetite and sleep patterns are undisturbed. Will maintain q 15min. checks for safety and support. Addendum: 04/02/17 at 6608 by DARIAN LOCKE RN Amended: Links added.
--- NOTE | 2017-04-03 06:27 | NUR ---
Nursing note: shift superintendent Patient noted to be sleeping at start of shift. Patient awake at 0230, up to bathroom and then out to dining room for snack. Patient also complains of leg pain and received Aspirin 650 mg po. Patient returned to bed after 0330, noted to be snoring loudly on subsequent safety checks.
[2017-04-03 07:55] VITALS: BP 123/65; PULSE 53; RESP 16
[2017-04-03] MEDS: Potassium Chloride 20 mEq SR Tablet PO SCH (08:44)
[2017-04-03] MEDS: guaiFENesin 600 mg ER12 Tablet PO SCH ×2 (08:44→22:02)
[2017-04-03] MEDS: MeTOProlol XL 25 mg ER24 Tablet PO SCH (08:44)
[2017-04-03] MEDS: Triamcinolone 0.1% 30 Gm Cream TOPICAL SCH ×2 (08:45→20:30)
[2017-04-03] MEDS: Mupirocin 2% 22 Gm Ointment NASAL SCH ×3 (08:46→20:30)
[2017-04-03] MEDS: Nystatin 100,000 Unit/Gm 15 Gm Powder TOPICAL SCH ×2 (08:46→22:08)
[2017-04-03 10:10] LABS: BASOPHILS % (AUTO) 0.5 % (0-3); EOSINOPHILS % (AUTO) 7.4 % (0-5); MONOCYTES % (AUTO) 8.3 % (4-12); Mean Corpuscular Hemoglobin 31.4 pg (27.0-35.0); Mean Corpuscular Volume 97.4 fL (81-100); NEUTROPHILS % (AUTO) 65.6 % (40-74); Platelet Count 179 bil/L (150-400)
--- NOTE | 2017-04-03 16:17 | DRSVH ---
PROCEDURE: X-RAY LEFT HIP COMPLETE, MINIMUM TWO VIEWS ([id number]) INDICATIONS: Fall 1 week ago, persistent pain. TECHNIQUE: 2 views of the hip were acquired. COMPARISON: [facility], CR, XR PELVIS W LATERAL HIP LT, 06/27/2016, 21:22. FINDINGS: Bones: No fractures or dislocations. There is minimal axial joint space narrowing. No suspicious b karma lesions. The visualized pelvic ring appears intact. Soft tissues: No suspicious soft tissue calcifications or masses. IMPRESSION: 1. No fracture or dislocation. 2. Minimal axial joint space narrowing of the left hip. Dictated by: Chato Alatorre M.D. on 04/03/2017 at 16:14 Approved by: Chato Alatorre M.D. on 04/03/2017 at 16:15
--- NOTE | 2017-04-03 17:04 | PCM.PNPSY ---
Subjective Date of Service Apr 03, 2017 Subjective The patient reports that she is still having hip pain from when a patient fell on her last week. She reports a previous injury with fracture although review of images indicated no fracture. The patient states that she is "still looking for a place to stay, I would prefer that placed behind the [facility] but maybe [facility], I would rather be closer to home." She reports that she is breathing better now that she is back in a hospital bed with elevated head. She denied any side effects and was looking forward to discharge to the community. She offered this public relations writer an orange and a cheese stick. Sleep: 4.25 hours+, patient reports 9 hours Appetite: "Eating most of my food" Suicidal and homicidal ideation: denies Auditory hallucinations: denies Visual hallucinations: denies Other Psychotic Symptoms: N/A Anxiety: 0/10 Depression: 0/10 Current Medications Current Medications Aripiprazole 30 mg ONCE ONCE PO Last administered on 04/02/17t 22:01; Admin Dose 30 MG; Start 04/02/17 at 21:30; Stop 04/02/17 at 21:31; Status DC Mental Status Exam Appearance: Neat/well groomed Attitude: Pleasant, Cooperative Behavior: Distractible Affect: Well Modulated/Appropriate Mood: Euthymic Thought Process/Associations: Logical/Sequential, Goal Directed Speech Production: Normal Speech Rate: Normal Speech Articulation: Normal Thought Content: Perseveration Danger to Self/Suicidal Ideati: None Danger to Others: None Hallucinations: Auditory (Denies), Visual (Denies) Consciousness: Alert Orientation: Person, Place, Date, Situation Memory: Grossly Intact Estimate Intellectual Function: Average Basis for IQ estimate: Awareness current events Attention/Concentration & Cogn: Impaired Insight: Limited Judgement: Limited Result Diagram: 04/03/17 1000 04/03/17 1000 Mental Health Plan The patient is a 71-year-old white female, who has been treated for bipolar disorder and psychosis for several decades by her primary care physician. She has been medication noncompliant and has not been taking any medication for several months. For the six weeks prior to admission, she had been experiencing poor sleep, and family and friends were noticing increasing distractibility and a decreased ability to take care of herself. When police arrived, they noted her home was in severe disarray and that it could no longer be inhabited. On admission, the patient was noted to be delusional, labile and tangential in her speech. The patient was focused on discharge planning. Patient again offered this public relations writer a "gift." The patient has been responding to her current antipsychotic, aripiprazole with improved organization and decreased paranoia. She continues to deny the presence of aphids/fleas. The counselor is currently working on helping the patient with housing but as yet none's been found. It is anticipated that the patient will likely go to [facility]. [place] AXIS I Psychosis unspecified vs. Schizoaffective disorder, bipolar type AXIS II Defer. AXIS III 1. Congestive heart failure. 2. Peripheral neuropathy. 3. Lower extremity edema. 4. History of respiratory failure with intubation May 2014. AXIS IV Unknown. AXIS V 45 Medications Abilify 30mg daily Citalopram 20mg daily Amoxicillin clavulanate 1 tablet twice a day completes on 04/02/2017 Atorvastatin 10 mg nightly Clotrimazole 1% cream Ferrous Gluconate 324mg po bid Furosemide 20 mg daily Gabapentin 400 mg 3 times a day Guaifenesin 600 mg every 12 hours Lisinopril 20 mg po daily Metoprolol 25 mg daily. Mupirocin nasal 3 times a day Nystatin topical twice a day Potassium chloride 20meq po daily Potassium chloride 20 mEq daily Sodium chloride nasal spray Triamcinolone topical twice daily Vitamin B12 injection monthly Fluticasone 1 spray twice a day as needed Ibuprofen 600 mg 3 times a day as needed Ondansetron 4 mg every 6 hours as needed for nausea Treatments 1. The patient is admitted to the inpatient unit and will be provided a safe and secure environment. 2. The patient is denying current active suicidality and is not in need of a one-to-one at this time. He is agreeing to notify us should he have any acute suicidal or homicidal thoughts. 3. The patient is encouraged to participate with group and milieu activities. 4. The patient will be seen by the treatment team on a daily basis to assess symptoms, side effects and response to treatment. 5. Continue current medications. 6. Appreciate internal medicine consult and management. 7. [facility] or other similar. 8. Hip X-ray completed, no evidence of fracture/dislocation. 9. Patient will likely leave early next week once housing located. Tuan Barragan MD Apr 03, 2017 14:54
--- NOTE | 2017-04-03 17:24 | NUR ---
Day shift Note Pt calm and cooperative with cares this shift. Took all medications without incident. Did complain of 10/10 pain in hip this afternoon and received prn ibuprofen, which patient states was effective "took it all the way down to an 8!" Had xray of hip this afternoon, results pending. Will continue to monitor patient frequently.
--- NOTE | 2017-04-03 17:37 | NUR ---
Observations [id number] Pt active on unit throughout the day. Requested clothing from this food writer- "get me something special to wear". Pt made comments about her ability to remember- "my hard drive is not plugged in today." She attended all meals, eating 100%. Pt angry that staff came into her room and cleaned out food and other items that needed to be thrown away. Pt spent time on patio in the sun, and was social with peers and staff. Pt watched TV in the evening. She was observed every 15 minutes of shift as directed.
--- NOTE | 2017-04-04 04:54 | NUR ---
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 Pt received Motrin for back pain with good effect. Pt went back to be without difficulty and slept the remainder of the shift. Monitored pt. for safety, location and accountability.
[2017-04-04] MEDS: Potassium Chloride 20 mEq SR Tablet PO SCH (08:33)
[2017-04-04] MEDS: guaiFENesin 600 mg ER12 Tablet PO SCH ×2 (08:33→20:41)
[2017-04-04] MEDS: MeTOProlol XL 25 mg ER24 Tablet PO SCH (08:33)
[2017-04-04] MEDS: Mupirocin 2% 22 Gm Ointment NASAL SCH ×3 (08:33→20:40)
[2017-04-04] MEDS: Nystatin 100,000 Unit/Gm 15 Gm Powder TOPICAL SCH ×2 (08:34→20:43)
[2017-04-04] MEDS: Triamcinolone 0.1% 30 Gm Cream TOPICAL SCH ×2 (08:34→20:40)
[2017-04-04 09:45] VITALS: BP 148/62; PULSE 60; RESP 60
--- NOTE | 2017-04-04 11:54 | NUR ---
Refusing Lisinopril Pt. refused Lisinopril this morning. She C/O generalized ENT symptoms (ringing in the ears, vision disturbance). Dr. Barragan aware. BP 148/62 this am. SBP at 120s for the last 2 days.
--- NOTE | 2017-04-04 13:00 | PCM.PNMED ---
Subjective Date of Service Apr 04, 2017 Subjective Hospitalist service was asked to consult on newly developed sx with lisinopril, pt stated that since she started taking Lisinopril, pt developed ear pain, dizziness, mild ASTORGA as well, denied having similar symptoms in the past, dizziness is more postural with sudden movement of standing up. "feel like falling down" of note, lisinopril was started on 03/24-, pt didn't take it this morning dose pt denied SOB, LE edema, tingling/numbness. orthopnea, PND pt finished Augmentin 04/02 for UTI also been lasix 20mg with KCL for LE edema with chronic diastolic CHF, noted home dose was 40mg qd Exam Vital Signs Vital Sign - Last Date Time Temp Pulse Resp B/P Pulse Ox O2 Delivery O2 Flow Rate FiO2 04/03/17 07:55 36.3 53 16 123/65 Exam NAD, comfortably laying down on the bed no JVD, MMM, no LAD RRR, nl s1, s2 no mrg CTAB, no w,c S,ND,NT,normoactive BS+ warm, no edema, pulses 2/2 IVs and Medications Medications Reviewed: Medications were reviewed in detail Lab and Diagnostics Result Diagram: 04/03/17 1000 04/03/17 1000 X-Rays, CTs and MRIs PROCEDURE: X-RAY CHEST ONE VIEW ([id number]) INDICATIONS: concern for CHF IMPRESSION: Diffuse interstitial opacities and cardiomegaly suggesting developing CHF. Atypical pneumonia cannot be excluded. Dictated by: Melquiades Escalante RR Interpreted: Edith Ramos MD on 03/22/2017 at 8:44 Transcribed by: JESÚS on 03/22/2017 at 8:46 Approved by: Edith Ramos MD, PhD on 03/22/2017 at 11:16 Cardiac Echo Impressions 03/23/17 Interpretation Summary The left ventricle is normal in size. Left ventricular wall thickness is mildly increased. Left ventricular ejection fraction is estimated to be .45. Compared to the prior exam, left ventricular function is moderately improved. There is mild global hypokinesis of the left ventricle. The right ventricle is grossly normal size. Right ventricular systolic function is mildly reduced. There is moderate to severe mitral regurgitation. There is mild tricuspid regurgitation. The right ventricular systolic pressure is estimated at 26 mmHg assuming a right atrial pressure of 3 mm Hg. Compared to the prior echo exam, there has been a decrease in TR severity. Electronically signed by: Austin Darnell on Reading Physician:03/23/2017 11:20 AM Additional Diagnostics PROCEDURE: X-RAY BARIUM SWALLOW ESOPHAGUS ([id number]) INDICATIONS: dysphagia, Speech eval recommendation COMPARISON: [facility], CT, CT ABD PELVIS W CON, 06/27/2016, 4:58. [facility], CR, XR CHEST 1VW, 03/22/2017, 7:54. FINDINGS: Function: Mild esophageal dysmotility. No elicited gastroesophageal reflux. There is normal transit of a calibrated barium tablet through the esophagus into the stomach. Morphology: Air-contrast images demonstrate normal mucosal morphology. Single contrast views show no esophageal strictures, extrinsic mass effects, or diverticula. Limited images of the stomach demonstrate normal appearance. The attending physician was personally present in the room during the examination. IMPRESSION: Mild esophageal dysmotility. Dictated by: Melquiades Escalante [facility] Interpreted: Brandon Ko MD on 03/24/2017 at 11:04 Transcribed by: ELEAZAR on 03/24/2017 at 11:06 Approved by: Brandon Ko M.D. on 03/24/2017 at 13:25 Assessment & Plan postural dizziness, ear pain, mild ASTORGA, this may or may not represent adverse effect from ACEI. It's unclear as pt seemed to tolerate it more than 10days although this is relatively new drug for her. it's possible that symptoms are more suggestive of hypovolemia from lasix with combination of ACEI. patient was on metoprolol and gabapentin from the past, which unlikely related to her sx. -given non-compliance, psychiatric illness, it seems reasonable to stop Lisinopril and monitor BP trends for now -ideally, lasix 20mg could be either stopped or switched to q2d. However, It's unclear this dosing will work in this patient. -Therefore, will hold lasix 20mg at least while patient is in house, if Patient deems having capacity to self medication, and adjustment of dosage, recommended lasix 20mg q2d in the morning, -if it's possible, please check orthostatic v/s -Thank you for consult, hospitalist service will continue to follow GI Prophylaxis: H2 margarito Resuscitation Status: CPR: Attempt Resuscitation Time spent 35min Lidia Martinez MD Apr 04, 2017 13:00
[2017-04-04 16:30] VITALS: BP 140/64; PULSE 55
--- NOTE | 2017-04-04 16:33 | PCM.PNPSY ---
Subjective Date of Service Apr 04, 2017 Subjective The patient was reporting that her hip is still sore but she was relieved to know that it was not fractured. She reports using an ice pack to help with her pain. She reports that although her son has been sick with the flu he will be coming by to help her pay for her house and treatment. She reported that the "blood pressure pill gives me flashy things in my eyes and makes me dizzy." She declined lisinopril this morning. She had no other complaints and reported she had no recurrence of in insect infestation and was awaiting housing placement. She otherwise denied medication side effects. Sleep: 9+ hours Appetite: "Good" Suicidal and homicidal ideation: denies Auditory hallucinations: denies Visual hallucinations: denies Other Psychotic Symptoms: N/A Anxiety: 0/10 Depression: 0/10 Current Medications Current Medications Aripiprazole 30 mg ONCE ONCE PO Last administered on 04/02/17t 22:01; Admin Dose 30 MG; Start 04/02/17 at 21:30; Stop 04/02/17 at 21:31; Status DC Mental Status Exam Vital Signs Vital Signs Date Time Temp Pulse Resp B/P Pulse Ox O2 Delivery O2 Flow Rate FiO2 04/04/17 09:45 36.4 60 60 148/62 Appearance: Neat/well groomed Attitude: Pleasant, Cooperative Behavior: Distractible Affect: Well Modulated/Appropriate Mood: Euthymic Thought Process/Associations: Logical/Sequential, Goal Directed Speech Production: Normal Speech Rate: Normal Speech Articulation: Normal Thought Content: Perseveration Danger to Self/Suicidal Ideati: None Danger to Others: None Hallucinations: Auditory (Denies), Visual (Denies) Consciousness: Alert Orientation: Person, Place, Date, Situation Memory: Grossly Intact Estimate Intellectual Function: Average Basis for IQ estimate: Awareness current events Attention/Concentration & Cogn: Impaired Insight: Limited Judgement: Limited Result Diagram: 04/03/17 1000 04/03/17 1000 Mental Health Plan The patient is a 71-year-old white female, who has been treated for bipolar disorder and psychosis for several decades by her primary care physician. She has been medication noncompliant and has not been taking any medication for several months. For the six weeks prior to admission, she had been experiencing poor sleep, and family and friends were noticing increasing distractibility and a decreased ability to take care of herself. When police arrived, they noted her home was in severe disarray and that it could no longer be inhabited. On admission, the patient was noted to be delusional, labile and tangential in her speech. The patient was focused on discharge planning. Patient again offered this conventional underwriter a "gift" of an orange. The patient has been responding to her current antipsychotic, aripiprazole with improved organization and decreased paranoia. She continues to deny the presence of aphids/fleas. The counselor is currently working on helping the patient with housing but as yet none has been found. It is anticipated that the patient will likely go to [facility]. [place] AXIS I Psychosis unspecified vs. Schizoaffective disorder, bipolar type AXIS II Defer. AXIS III 1. Congestive heart failure. 2. Peripheral neuropathy. 3. Lower extremity edema. 4. History of respiratory failure with intubation May 2014. AXIS IV Unknown. AXIS V 45 Medications Abilify 30mg daily Citalopram 20mg daily Amoxicillin clavulanate 1 tablet twice a day completes on 04/02/2017 Atorvastatin 10 mg nightly Clotrimazole 1% cream Ferrous Gluconate 324mg po bid Furosemide 20 mg daily Gabapentin 400 mg 3 times a day Guaifenesin 600 mg every 12 hours Lisinopril 20 mg po daily Metoprolol 25 mg daily. Mupirocin nasal 3 times a day Nystatin topical twice a day Potassium chloride 20meq po daily Potassium chloride 20 mEq daily Sodium chloride nasal spray Triamcinolone topical twice daily Vitamin B12 injection monthly Fluticasone 1 spray twice a day as needed Ibuprofen 600 mg 3 times a day as needed Ondansetron 4 mg every 6 hours as needed for nausea Treatments 1. The patient is admitted to the inpatient unit and will be provided a safe and secure environment. 2. The patient is denying current active suicidality and is not in need of a one-to-one at this time. He is agreeing to notify us should he have any acute suicidal or homicidal thoughts. 3. The patient is encouraged to participate with group and milieu activities. 4. The patient will be seen by the treatment team on a daily basis to assess symptoms, side effects and response to treatment. 5. Continue current medications. 6. Appreciate internal medicine consult and management. Discussed with internal medicine regarding alternative antihypertensive. 7. [facility] or other similar. 8. Hip X-ray completed, no evidence of fracture/dislocation. 9. Patient will leave once housing located. Tuan Barragan MD Apr 04, 2017 16:33
[2017-04-04 16:35] VITALS: BP 152/71; PULSE 56
[2017-04-04 16:40] VITALS: BP 157/74; PULSE 59
--- NOTE | 2017-04-04 16:51 | NUR ---
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 No auditory or visual hallucinations. She attended group and slept "well." A: Patient was disheveled but cooperative. She was complaining about an ear ache and in and out of group. P: Follow care plan and coordinate with outpatient providers.
--- NOTE | 2017-04-04 17:21 | NUR ---
Orthostatic vital Orthostatic BP and HR as recommended by Dr. Martinez was done. WNL.
--- NOTE | 2017-04-04 18:05 | NUR ---
Observations [id number] Pt friendly and active on unit. Spent much of the day watching TV and resting in bed. Pt did attend group, but did not attend Community Meeting. Shared that she is still concerned about son whom she hasn't spoken with, and about her home and worried that her house payment wasn't made. Pt attended all meals, eating 100%. She was observed every 15 minutes of shift as directed.
[2017-04-04] MEDS: Benzocaine-Menthol Lozenge 2/Pkg PO PRN (18:06)
--- NOTE | 2017-04-05 06:44 | NUR ---
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 Pts thoughts, organized and linear, no delusional content observed or elicited. Pt received aspirin 650mg po prn for pain at 0330 with good relief. Monitored pt. for safety location and accountability.
[2017-04-05] MEDS: MeTOProlol XL 25 mg ER24 Tablet PO SCH ×2 (08:30→08:46)
[2017-04-05] MEDS: guaiFENesin 600 mg ER12 Tablet PO SCH ×2 (08:46→21:19)
[2017-04-05] MEDS: Potassium Chloride 20 mEq SR Tablet PO SCH (08:47)
[2017-04-05] MEDS: Mupirocin 2% 22 Gm Ointment NASAL SCH ×3 (08:48→21:30)
[2017-04-05] MEDS: Nystatin 100,000 Unit/Gm 15 Gm Powder TOPICAL SCH ×2 (08:50→20:30)
[2017-04-05] MEDS: Triamcinolone 0.1% 30 Gm Cream TOPICAL SCH ×2 (08:50→21:29)
--- NOTE | 2017-04-05 11:51 | PCM.PNMED ---
Subjective Date of Service Apr 05, 2017 Subjective pt denied any similar sx after holding lisinopril although BP runs high 150s, denied dizziness, ASTORGA, ear pain, orthostatic v/s reportedly negative. Exam Vital Signs Vital Sign - Last Date Time Temp Pulse Resp B/P Pulse Ox O2 Delivery O2 Flow Rate FiO2 04/04/17 16:40 36.1 59 157/74 04/04/17 09:45 60 Exam NAD, comfortably laying down on the bed no JVD, MMM, no LAD RRR, nl s1, s2 no mrg CTAB, no w,c S,ND,NT,normoactive BS+ warm, no edema, pulses 2/2 IVs and Medications Medications Reviewed: Medications were reviewed in detail Lab and Diagnostics Result Diagram: 04/03/17 1000 04/03/17 1000 X-Rays, CTs and MRIs PROCEDURE: X-RAY CHEST ONE VIEW ([id number]) INDICATIONS: concern for CHF IMPRESSION: Diffuse interstitial opacities and cardiomegaly suggesting developing CHF. Atypical pneumonia cannot be excluded. Dictated by: Melquiades Escalante RRA Interpreted: Edith Ramos MD on 03/22/2017 at 8:44 Transcribed by: JESÚS on 03/22/2017 at 8:46 Approved by: Edith Ramos MD, PhD on 03/22/2017 at 11:16 Cardiac Echo Impressions 03/23/17 Interpretation Summary The left ventricle is normal in size. Left ventricular wall thickness is mildly increased. Left ventricular ejection fraction is estimated to be .45. Compared to the prior exam, left ventricular function is moderately improved. There is mild global hypokinesis of the left ventricle. The right ventricle is grossly normal size. Right ventricular systolic function is mildly reduced. There is moderate to severe mitral regurgitation. There is mild tricuspid regurgitation. The right ventricular systolic pressure is estimated at 26 mmHg assuming a right atrial pressure of 3 mm Hg. Compared to the prior echo exam, there has been a decrease in TR severity. Electronically signed by: Austin Darnell on Reading Physician:03/23/2017 11:20 AM Additional Diagnostics PROCEDURE: X-RAY BARIUM SWALLOW ESOPHAGUS ([id number]) INDICATIONS: dysphagia, Speech eval recommendation COMPARISON: [facility], CT, CT ABD PELVIS W CON, 06/27/2016, 4:58. [facility], CR, XR CHEST 1VW, 03/22/2017, 7:54. FINDINGS: Function: Mild esophageal dysmotility. No elicited gastroesophageal reflux. There is normal transit of a calibrated barium tablet through the esophagus into the stomach. Morphology: Air-contrast images demonstrate normal mucosal morphology. Single contrast views show no esophageal strictures, extrinsic mass effects, or diverticula. Limited images of the stomach demonstrate normal appearance. The attending physician was personally present in the room during the examination. IMPRESSION: Mild esophageal dysmotility. Dictated by: Melquiades Escalante RRA Interpreted: Brandon Ko MD on 03/24/2017 at 11:04 Transcribed by: ELEAZAR on 03/24/2017 at 11:06 Approved by: Brandon Ko M.D. on 03/24/2017 at 13:25 Assessment & Plan postural dizziness, ear pain, mild ASTORGA, given resolved sx, it could possibly from ACEI and/or combination of lasix -Please continue to hold lisinopril, although BP runs above target, -trial of [id number] qd today and see response today, if pt doesn't respond well , recommend 20mg daily until pt sees PCP in one week after d/c -would not recommend any new bp regimen given questionable compliance at this moment, pt unlikely continues upon d/c -please trend BP -discussed with -greatly appreciate for consult, hospitalist service will continue to follow, likely to sing out in 1-2days GI Prophylaxis: H2 margarito Resuscitation Status: CPR: Attempt Resuscitation Time spent 35min Lidia Martinez MD Apr 05, 2017 11:51
--- NOTE | 2017-04-05 14:59 | PCM.PNPSY ---
Subjective Date of Service Apr 05, 2017 Subjective The patient reports that "I am doing good." The patient reported that her side effects have resolved and she was willing to take low-dose furosemide. She reports that her son was not able to combined to help her with her house payment has he has the flu. The patient was given a phone number for her bank to verify funds prior to giving a check to her son. The patient reported that her insect infestation had resolved. She was awaiting placement at [facility]. She otherwise denied medication side effects. Sleep: 9+ hours, staff reports 4.5 hours Appetite: "Good" Suicidal and homicidal ideation: denies Auditory hallucinations: denies Visual hallucinations: denies Other Psychotic Symptoms: N/A Anxiety: 0/10 Depression: 0/10 Current Medications Current Medications Furosemide 10 mg ONCE ONCE PO Last administered on 04/05/17t 11:51; Admin Dose 10 MG; Start 04/05/17 at 11:05; Stop 04/05/17 at 11:45; Status DC Mental Status Exam Appearance: Neat/well groomed Attitude: Pleasant, Cooperative Behavior: Distractible Affect: Well Modulated/Appropriate Mood: Euthymic Thought Process/Associations: Logical/Sequential, Goal Directed Speech Production: Normal Speech Rate: Normal Speech Articulation: Normal Thought Content: Perseveration Danger to Self/Suicidal Ideati: None Danger to Others: None Hallucinations: Auditory (Denies), Visual (Denies) Consciousness: Alert Orientation: Person, Place, Date, Situation Memory: Grossly Intact Estimate Intellectual Function: Average Basis for IQ estimate: Awareness current events Attention/Concentration & Cogn: Impaired Insight: Limited Judgement: Limited Result Diagram: 04/03/17 1000 04/03/17 1000 Mental Health Plan The patient is a 71-year-old white female, who has been treated for bipolar disorder and psychosis for several decades by her primary care physician. She has been medication noncompliant and has not been taking any medication for several months. For the six weeks prior to admission, she had been experiencing poor sleep, and family and friends were noticing increasing distractibility and a decreased ability to take care of herself. When police arrived, they noted her home was in severe disarray and that it could no longer be inhabited. On admission, the patient was noted to be delusional, labile and tangential in her speech. The patient was focused on discharge planning. Patient again offered this software writer a "gift" of an orange. The patient has been responding to her current antipsychotic, aripiprazole with improved organization and decreased paranoia. She continues to deny the presence of aphids/fleas. The counselor is currently working on helping the patient with housing but as yet none has been found. It is anticipated that the patient will likely go to [facility]. The patient was willing to restart furosemide 10 mg daily. [place] AXIS I Psychosis unspecified vs. Schizoaffective disorder, bipolar type AXIS II Defer. AXIS III 1. Congestive heart failure. 2. Peripheral neuropathy. 3. Lower extremity edema. 4. History of respiratory failure with intubation May 2014. AXIS IV Unknown. AXIS V 45 Medications Abilify 30mg daily Citalopram 20mg daily Amoxicillin clavulanate 1 tablet twice a day completes on 04/02/2017 Atorvastatin 10 mg nightly Clotrimazole 1% cream Ferrous Gluconate 324mg po bid Furosemide 10 mg daily Gabapentin 400 mg 3 times a day Guaifenesin 600 mg every 12 hours Lisinopril 20 mg po daily Metoprolol 25 mg daily. Mupirocin nasal 3 times a day Nystatin topical twice a day Potassium chloride 20meq po daily Potassium chloride 20 mEq daily Sodium chloride nasal spray Triamcinolone topical twice daily Vitamin B12 injection monthly Fluticasone 1 spray twice a day as needed Ibuprofen 600 mg 3 times a day as needed Ondansetron 4 mg every 6 hours as needed for nausea Treatments 1. The patient is admitted to the inpatient unit and will be provided a safe and secure environment. 2. The patient is denying current active suicidality and is not in need of a one-to-one at this time. He is agreeing to notify us should he have any acute suicidal or homicidal thoughts. 3. The patient is encouraged to participate with group and milieu activities. 4. The patient will be seen by the treatment team on a daily basis to assess symptoms, side effects and response to treatment. 5. Continue current medications. 6. Appreciate internal medicine consult and management. Discussed with internal medicine regarding alternative antihypertensive and patient restarted on furosemide 10 mg. 7. [facility]. 8. Hip X-ray completed, no evidence of fracture/dislocation. 9. Patient will leave once housing located. Tuan Barragan MD Apr 05, 2017 14:59
--- NOTE | 2017-04-05 15:51 | NUR ---
Obs Dayshift Pt is polite, engaging, and more isolative today w/ peer/room mate. Spending most of the in her room talking or sleeping. Pt is out during meals, little to no activity on the unit today. Smiling, laughing, and engages w/ peers when she is out on the unit. Pt has little to no change from last week. Pt is participating less. Continues w/ hoarding, home made makeup. Ok ADL's, Good meals
--- NOTE | 2017-04-05 16:03 | NUR ---
[employer] Technical Lead Senior Developer/Counselor S:"I'm happy today." O:O: Patient denies any SI or HI, no anxiety or depression, and no auditory or visual hallucinations. A: Patient was isolative and stayed in her room. Stated that she was happy but also tired. She was cooperative but disheveled and unkept. P:Follow care plan and coordinate with outpatient providers.
--- NOTE | 2017-04-05 16:41 | NUR ---
S: "I have a call out to the police, I have not heard from my son for several days, he was really sick, I am worried about him". O: Patient visible on unit. Interacting appropriately with peers/staff. A: Patient making positive statements regarding discharge. Able to express thoughts in a clear/linear manner. Appropriate and cooperative with care. P: Monitor for response to treatment. Q 15 min checks for safety. Follow plan of care.
[2017-04-05 17:52] VITALS: BP 180/80; PULSE 62; RESP 18
--- NOTE | 2017-04-05 19:43 | NUR ---
Behavior P: Pt resting quietly in bed. Appears asleep. I: No current needs at present. E: Cont to provide supportive, quiet environment
[2017-04-05 20:22] VITALS: BP 121/63
--- NOTE | 2017-04-06 05:29 | NUR ---
ELIGIO/NOC PT's mood remains about the same at this time. Her presentation is of hypo-lisa. PT likes to sit and talk with others in dayroom while snacking. HEr contact with others is appropriate. PT and roommate have known each other for 15 years, so their relationship is healthy. THey look out for one another. THis RN talked at length with pt about her prior living arrangements. PT remains in denial about the graveness of her home situation and believes "the horse show judge is on cocaine in [place]. All they want is my property. They offered me 100, 000. 00. PT reports that her son Raya has cleaned her home, although pt is aware that her d/c will hopefully be to the "[facility]." PT was tearful when she spoke about her 28 days in correction and how pt was reportedly treated there. PT requested ASA once with good relief. PT denies any depression or anxiety. NO HI/SI. Currently will continue with POC and monitor for any A/R. PT's sleep was a little broken, but overall slept well.
[2017-04-06] MEDS: Mupirocin 2% 22 Gm Ointment NASAL SCH ×3 (07:52→19:49)
[2017-04-06] MEDS: Nystatin 100,000 Unit/Gm 15 Gm Powder TOPICAL SCH ×2 (07:54→19:49)
[2017-04-06] MEDS: Triamcinolone 0.1% 30 Gm Cream TOPICAL SCH ×2 (07:54→19:49)
[2017-04-06] MEDS: Potassium Chloride 20 mEq SR Tablet PO SCH (08:13)
[2017-04-06] MEDS: guaiFENesin 600 mg ER12 Tablet PO SCH ×2 (08:14→20:56)
[2017-04-06] MEDS: MeTOProlol XL 25 mg ER24 Tablet PO SCH (08:21)
[2017-04-06] MEDS: Benzocaine-Menthol Lozenge 2/Pkg PO PRN ×2 (10:00→21:32)
--- NOTE | 2017-04-06 11:14 | PCM.PNMED ---
Subjective Date of Service Apr 06, 2017 Subjective pt denied any similar episode, ambulating well, no postural dizziness, tried 10mg lasix, respiratory status stable, expected to be d/allan tomorrow from psychiatric stand point Exam Vital Signs Vital Sign - Last Date Time Temp Pulse Resp B/P Pulse Ox O2 Delivery O2 Flow Rate FiO2 04/05/17 20:22 121/63 04/05/17 17:52 36.4 62 18 Exam NAD, comfortably laying down on the bed no JVD, MMM, no LAD RRR, nl s1, s2 no mrg CTAB, no w,c S,ND,NT,normoactive BS+ warm, trace edema, pulses 2/2 IVs and Medications Medications Reviewed: Medications were reviewed in detail Lab and Diagnostics Result Diagram: 04/03/17 1000 04/03/17 1000 X-Rays, CTs and MRIs PROCEDURE: X-RAY CHEST ONE VIEW ([id number]) INDICATIONS: concern for CHF IMPRESSION: Diffuse interstitial opacities and cardiomegaly suggesting developing CHF. Atypical pneumonia cannot be excluded. Dictated by: Melquiades Escalante RRA Interpreted: Edith Ramos MD on 03/22/2017 at 8:44 Transcribed by: JESÚS on 03/22/2017 at 8:46 Approved by: Edith Ramos MD, PhD on 03/22/2017 at 11:16 Cardiac Echo Impressions 03/23/17 Interpretation Summary The left ventricle is normal in size. Left ventricular wall thickness is mildly increased. Left ventricular ejection fraction is estimated to be .45. Compared to the prior exam, left ventricular function is moderately improved. There is mild global hypokinesis of the left ventricle. The right ventricle is grossly normal size. Right ventricular systolic function is mildly reduced. There is moderate to severe mitral regurgitation. There is mild tricuspid regurgitation. The right ventricular systolic pressure is estimated at 26 mmHg assuming a right atrial pressure of 3 mm Hg. Compared to the prior echo exam, there has been a decrease in TR severity. Electronically signed by: Austin Darnell on [place] Physician:03/23/2017 11:20 AM Additional Diagnostics PROCEDURE: X-RAY BARIUM SWALLOW ESOPHAGUS ([id number]) INDICATIONS: dysphagia, Speech eval recommendation COMPARISON: [facility], CT, CT ABD PELVIS W CON, 06/27/2016, 4:58. [facility], CR, XR CHEST 1VW, 03/22/2017, 7:54. FINDINGS: Function: Mild esophageal dysmotility. No elicited gastroesophageal reflux. There is normal transit of a calibrated barium tablet through the esophagus into the stomach. Morphology: Air-contrast images demonstrate normal mucosal morphology. Single contrast views show no esophageal strictures, extrinsic mass effects, or diverticula. Limited images of the stomach demonstrate normal appearance. The attending physician was personally present in the room during the examination. IMPRESSION: Mild esophageal dysmotility. Dictated by: Melquiades Escalante RRA Interpreted: Brandon Ko MD on 03/24/2017 at 11:04 Transcribed by: ELEAZAR on 03/24/2017 at 11:06 Approved by: Brandon Ko M.D. on 03/24/2017 at 13:25 Assessment & Plan postural dizziness, ear pain, mild ASTORGA, given resolved sx, it could possibly from ACEI and/or combination of lasix -Please continue to hold lisinopril, although BP runs slightly above target, -trial of [id number] 04/05, can increase to 20mg daily or stop completely and PCP follow up in one week after d/c -discussed with HTN, continue home BB, would not recommend any new bp regimen given questionable compliance at this moment, pt unlikely continues upon d/c greatly appreciate for consult, hospitalist service will sign off today. Please feel free to contact if any questions or concerns. GI Prophylaxis: H2 margarito Resuscitation Status: CPR: Attempt Resuscitation Time spent 35min Lidia Martinez MD Apr 06, 2017 11:14
--- NOTE | 2017-04-06 17:53 | NUR ---
S: "I don't have any clothes to change into". O: Patient telling other patients that she has nothing to wear, and getting donations from other patients. Patient wearing a sock tied around chest as kera. Continues to be social on the unit. Teaching other female patients to use Crystal Light to color their lips. Taking all medications except Metoprolol, which she has consistently refused. A: Cooperative, social, disheveled, unusual personal accessorizing. P: Monitor for response to treatment. Q 15 min checks for safety. Follow plan of care. Addendum: 04/06/17 at 1754 by CHELITA TREVIÑO RN PRN's Aspirin 650 mg po @ 19:58 for generalized pain of greater than ten.
--- NOTE | 2017-04-06 18:50 | NUR ---
[facility] Day Shift Pt affect and behavior appears mostly unchanged from previous shifts. Pt maintained behavioral control throughout the shift. Pt affect appears bright, though flatter than noted on previous shifts. Pt spends most of the shift resting in her room or interacting with peers in the dining room. Pt is pleasant and appropriate with staff and peers when active on the unit. Pt speech and thought content appear tangential, occasionally nonsensical (though much less so than noted on previous shifts). Pt did not attend any group activities throughout the shift. Pt continues to use various unit amenities as "makeup." Pt attended all meals and ate approx 60-80% of all meals.
--- NOTE | 2017-04-06 19:10 | NUR ---
Counselor/Case Management: S: "If you get me a pack of raspberry crystal light, I will make you some lipstick." O: Patient slept 4.5 hours last night per staff. She denies S/I and H/I. She denies auditory and visual hallucinations. Depression is 0/10 and anxiety is 0/10. A: Patient is cooperative, distractible, euthymic, limited insight, limited judgment. P: Follow care plan, coordinate with out-patient providers.
[2017-04-06 22:30] VITALS: BP 139/70; PULSE 67; RESP 16
--- NOTE | 2017-04-06 23:07 | PCM.PNPSY ---
Subjective Date of Service Apr 06, 2017 Subjective The patient stated that she was doing well except for mild dry mouth. Mild edema is noted in her lower extremities but she declines further increase in furosemide. The patient was able to verify that she has sufficient funds for payments. The patient reported that her insect infestation had resolved but that she would like ongoing antibiotic treatment. She was awaiting placement at [facility]. She is willing to go to crisis respite if no other housing is found. She is scheduled for [facility] assessment today. She otherwise denied medication side effects. Sleep: 9+ hours Appetite: "Good" Suicidal and homicidal ideation: denies Auditory hallucinations: denies Visual hallucinations: denies Other Psychotic Symptoms: N/A Anxiety: 0/10 Depression: 0/10 Current Medications Current Medications Furosemide 10 mg ONCE ONCE PO Last administered on 04/05/17t 11:51; Admin Dose 10 MG; Start 04/05/17 at 11:05; Stop 04/05/17 at 11:45; Status DC Mental Status Exam Appearance: Neat/well groomed Attitude: Pleasant, Cooperative Behavior: Distractible Affect: Well Modulated/Appropriate Mood: Euthymic Thought Process/Associations: Logical/Sequential, Goal Directed Speech Production: Normal Speech Rate: Normal Speech Articulation: Normal Thought Content: Perseveration Danger to Self/Suicidal Ideati: None Danger to Others: None Hallucinations: Auditory (Denies), Visual (Denies) Consciousness: Alert Orientation: Person, Place, Date, Situation Memory: Grossly Intact Estimate Intellectual Function: Average Basis for IQ estimate: Awareness current events Attention/Concentration & Cogn: Impaired Insight: Limited Judgement: Limited Result Diagram: 04/03/17 1000 04/03/17 1000 Mental Health Plan The patient is a 71-year-old white female, who has been treated for bipolar disorder and psychosis for several decades by her primary care physician. She has been medication noncompliant and has not been taking any medication for several months. For the six weeks prior to admission, she had been experiencing poor sleep, and family and friends were noticing increasing distractibility and a decreased ability to take care of herself. When police arrived, they noted her home was in severe disarray and that it could no longer be inhabited. On admission, the patient was noted to be delusional, labile and tangential in her speech. The patient was focused on discharge planning. Patient again offered this singer songwriter a "gift" of an orange. The patient has been responding to her current antipsychotic, aripiprazole with improved organization and decreased paranoia. She continues to deny the presence of aphids/fleas, but is requesting prophylactic antibiotics to prevent recurrence. The counselor is currently working on helping the patient with housing but as yet none has been found. It is anticipated that the patient will likely go to [facility] or [facility]. [place] AXIS I Psychosis unspecified vs. Schizoaffective disorder, bipolar type AXIS II Defer. AXIS III 1. Congestive heart failure. 2. Peripheral neuropathy. 3. Lower extremity edema. 4. History of respiratory failure with intubation May 2014. AXIS IV Unknown. AXIS V 45 Medications Abilify 30mg daily Citalopram 20mg daily Amoxicillin clavulanate 1 tablet twice a day completes on 04/02/2017 Atorvastatin 10 mg nightly Clotrimazole 1% cream Ferrous Gluconate 324mg po bid Furosemide 10 mg daily Gabapentin 400 mg 3 times a day Guaifenesin 600 mg every 12 hours Lisinopril 20 mg po daily Metoprolol 25 mg daily. Mupirocin nasal 3 times a day Nystatin topical twice a day Potassium chloride 20meq po daily Potassium chloride 20 mEq daily Sodium chloride nasal spray Triamcinolone topical twice daily Vitamin B12 injection monthly Fluticasone 1 spray twice a day as needed Ibuprofen 600 mg 3 times a day as needed Ondansetron 4 mg every 6 hours as needed for nausea Treatments 1. The patient is admitted to the inpatient unit and will be provided a safe and secure environment. 2. The patient is denying current active suicidality and is not in need of a one-to-one at this time. He is agreeing to notify us should he have any acute suicidal or homicidal thoughts. 3. The patient is encouraged to participate with group and milieu activities. 4. The patient will be seen by the treatment team on a daily basis to assess symptoms, side effects and response to treatment. 5. Continue current medications. 6. Appreciate internal medicine consult and management. Discussed with internal medicine regarding alternative antihypertensive and will continue on furosemide 10 mg, medical is signing off. 7. Awaiting discharge options such as [facility] or [facility]. 8. Patient will leave once housing located. Tuan Barragan MD Apr 06, 2017 16:12
--- NOTE | 2017-04-07 05:09 | NUR ---
[id number] Jaci has been asleep for 4.5 hours. She requested and received prn aspirin 650 mg at 2319 and 0343 for pain in her hip. She is pleasant on approach by staff and gentle toward peers. Dressed colorfully. Denies SI anxiety ad depression. A: At baseline and ready for discharge.
[2017-04-07 08:05] VITALS: BP 134/73; PULSE 61; RESP 15
[2017-04-07] MEDS: MeTOProlol XL 25 mg ER24 Tablet PO SCH (08:23)
[2017-04-07] MEDS: Triamcinolone 0.1% 30 Gm Cream TOPICAL SCH ×2 (08:24→20:30)
[2017-04-07] MEDS: guaiFENesin 600 mg ER12 Tablet PO SCH ×2 (08:24→20:54)
[2017-04-07] MEDS: Potassium Chloride 20 mEq SR Tablet PO SCH (08:24)
[2017-04-07] MEDS: Nystatin 100,000 Unit/Gm 15 Gm Powder TOPICAL SCH ×2 (08:25→20:30)
[2017-04-07] MEDS: Mupirocin 2% 22 Gm Ointment NASAL SCH ×3 (08:25→20:30)
--- NOTE | 2017-04-07 16:22 | NUR ---
Observations 0900 to 2130 Pt affect and mood was friendly, social, bright and content. Pt speech and eye contact was good. Pt attended meals in D.R. and ate 100% of breakfast and lunch. Pt ate snack. Pt attended community meeting and set a daily goal. Pt rated her mood 08/02. Pt was social with staff and select peers. Pt has been pleasant, polite and cooperative. Pt watched TV with peers. Pt took a nap in the afternoon. Pt was observed every 15 minutes throughout the shift as ordered.
--- NOTE | 2017-04-07 16:58 | NUR ---
Counselor/Case Management: S: "I will stay wherever they tell me to stay...behind [place] or the prison." O: Patient slept 4.75 hours last night per staff. She denies S/I and H/I. She denies auditory and visual hallucinations. Depression is 0/10 and anxiety is 0/10. This typewriter assembler spoke with [facility]. Roseanne is in the process of completing the final paperwork for the assessment done on Tuesday. A: Patient is cooperative, distractible, euthymic, limited insight, limited judgment. P: Follow care plan, coordinate with out-patient providers.
--- NOTE | 2017-04-07 17:49 | NUR ---
Nursing Dayshift: S: "Barney Canas aircraft maintenance technician is the sperm donor for my stepson." O: Patient made the above comment to this staff after sending a peer away so as to tell me the above in secret. Has been pleasant on approach. Smiles much of the time. Watching TV at times with peers. Eating well at meals. Rates anxiety at a 10/[address] Denies depression, harmful thoughts, and hallucinations. A: P: CPOC. Monitor mood and behavior. Addendum: 04/07/17 at 1819 by CAMRYN JOYCE RN Nursing Dayshift: S: "Barney Canas aircraft maintenance technician is the sperm donor for my stepson." O: Patient made the above comment to this staff after sending a peer away so as to tell me the above in secret. Has been pleasant on approach. Smiles much of the time. Watching TV at times with peers. Eating well at meals. Rates anxiety at a 10/[address]!" Denies depression, harmful thoughts, and hallucinations. A: Bright and cheerful. Bizarre at times. P: CPOC. Monitor mood and behavior.
--- NOTE | 2017-04-07 22:43 | PCM.PNPSY ---
Subjective Date of Service Apr 07, 2017 Subjective The patient stated that she was doing well today. Patient has some ruddiness but no lower extremity edema is noted in her lower extremities She was awaiting placement at [facility]. She is willing to go to crisis respite if no other housing is found. Patient still wanting antibiotics to make sure that the "aphids" don't return. She otherwise denied medical problems or medication side effects. Sleep: 9+ hours per patient, 4.75 hours per staff Appetite: "Good" Suicidal and homicidal ideation: denies Auditory hallucinations: denies Visual hallucinations: denies Other Psychotic Symptoms: N/A Anxiety: 0/10 Depression: 0/10 Mental Status Exam Appearance: Neat/well groomed Attitude: Pleasant, Cooperative Behavior: No unusual behavior Affect: Well Modulated/Appropriate Mood: Euthymic Thought Process/Associations: Logical/Sequential, Goal Directed Speech Production: Normal Speech Rate: Normal Speech Articulation: Normal Thought Content: Perseveration Danger to Self/Suicidal Ideati: None Danger to Others: None Hallucinations: Auditory (Denies), Visual (Denies) Consciousness: Alert Orientation: Person, Place, Date, Situation Memory: Grossly Intact Estimate Intellectual Function: Average Basis for IQ estimate: Awareness current events Attention/Concentration & Cogn: Impaired Insight: Limited Judgement: Limited Result Diagram: 04/03/17 1000 04/03/17 1000 Mental Health Plan The patient is a 71-year-old white female, who has been treated for bipolar disorder and psychosis for several decades by her primary care physician. She has been medication noncompliant and has not been taking any medication for several months. For the six weeks prior to admission, she had been experiencing poor sleep, and family and friends were noticing increasing distractibility and a decreased ability to take care of herself. When police arrived, they noted her home was in severe disarray and that it could no longer be inhabited. On admission, the patient was noted to be delusional, labile and tangential in her speech. The patient was focused on discharge planning. The patient has been responding to her current antipsychotic, aripiprazole with improved organization and decreased paranoia. She continues to deny the presence of aphids/fleas, but is requesting prophylactic antibiotics to prevent recurrence. The counselor is currently working on helping the patient with housing but as yet none has been found. It is anticipated that the patient will likely go to [facility] or [facility]. No edema noted today in lower extremities. [place] AXIS I Psychosis unspecified vs. Schizoaffective disorder, bipolar type AXIS II Defer. AXIS III 1. Congestive heart failure. 2. Peripheral neuropathy. 3. Lower extremity edema. 4. History of respiratory failure with intubation May 2014. AXIS IV Unknown. AXIS V 45 Medications Abilify 30mg daily Citalopram 20mg daily Amoxicillin clavulanate 1 tablet twice a day completes on 04/02/2017 Atorvastatin 10 mg nightly Clotrimazole 1% cream Ferrous Gluconate 324mg po bid Furosemide 10 mg daily Gabapentin 400 mg 3 times a day Guaifenesin 600 mg every 12 hours Lisinopril 20 mg po daily Metoprolol 25 mg daily. Mupirocin nasal 3 times a day Nystatin topical twice a day Potassium chloride 20meq po daily Potassium chloride 20 mEq daily Sodium chloride nasal spray Triamcinolone topical twice daily Vitamin B12 injection monthly Fluticasone 1 spray twice a day as needed Ibuprofen 600 mg 3 times a day as needed Ondansetron 4 mg every 6 hours as needed for nausea Treatments 1. The patient is admitted to the inpatient unit and will be provided a safe and secure environment. 2. The patient is denying current active suicidality and is not in need of a one-to-one at this time. He is agreeing to notify us should he have any acute suicidal or homicidal thoughts. 3. The patient is encouraged to participate with group and milieu activities. 4. The patient will be seen by the treatment team on a daily basis to assess symptoms, side effects and response to treatment. 5. Continue current medications. 6. Appreciate internal medicine consult and management. Discussed with internal medicine regarding alternative antihypertensive and will continue on furosemide 10 mg, medical is signing off. 7. Awaiting discharge options such as [facility] or [facility]. 8. Patient will leave once housing located. Tuan Barragan MD Apr 07, 2017 22:43
--- NOTE | 2017-04-08 03:57 | NUR ---
Nursing Noc Pt pleasant, cooperative and reality based. Zero fixed delusions noted, reports anxiety 0/10, depression 0/10. Interacting with staff and other patients appropriately. Son into visit this evening. Pt goal directed to get into temporary housing until her home is ready. Continuing to monitor mood behavior and emotional state. Q15 minute safety checks performed throughout the shift. CP
[2017-04-08] MEDS: MeTOProlol XL 25 mg ER24 Tablet PO SCH (08:23)
[2017-04-08] MEDS: Potassium Chloride 20 mEq SR Tablet PO SCH (08:23)
[2017-04-08] MEDS: guaiFENesin 600 mg ER12 Tablet PO SCH ×2 (08:23→21:12)
[2017-04-08] MEDS: Triamcinolone 0.1% 30 Gm Cream TOPICAL SCH ×2 (08:30→21:11)
[2017-04-08] MEDS: Nystatin 100,000 Unit/Gm 15 Gm Powder TOPICAL SCH ×2 (08:30→21:13)
[2017-04-08] MEDS: Mupirocin 2% 22 Gm Ointment NASAL SCH ×3 (08:30→20:30)
[2017-04-08] MEDS: Benzocaine-Menthol Lozenge 2/Pkg PO PRN (10:24)
[2017-04-08 13:34] VITALS: BP 163/74; PULSE 62; RESP 16
--- NOTE | 2017-04-08 16:47 | NUR ---
Nursing Dayshift: S: "Can you believe they are trying to buy my house for $100,00.00? I can get $1,000,000.00 for one of my 250 foot cedar trees." O: Patient discussing her house which was delipidated when she was admitted here. Has been out in the public areas much of the shift. Eating well at meals. Social with peers. Encouraging to peers. Denies anxiety, depression, harmful thoughts, and hallucinations. A: Pleasant on approach. Bright and cheerful. P: CPOC. Monitor mood and behavior.
--- NOTE | 2017-04-08 18:39 | NUR ---
[facility] Day Shift Pt affect and behavior appears mostly unchanged from previous shifts. Pt maintained behavioral control throughout the shift. Pt affect appears flat, brighter when interacting with peers. Pt spends most of the shift resting in her room or interacting with peers in the dining room. Pt is pleasant and appropriate with staff and peers when active on the unit. Pt speech and thought content appear tangential, occasionally nonsensical (though much less so than noted on previous shifts). Pt did not attend any group activities throughout the shift. Pt continues to use various unit amenities as "makeup." Pt attended all meals and ate approx 60-80% of all meals.
--- NOTE | 2017-04-08 20:12 | NUR ---
Counselor/Case Management: S: "I can go back in my house. My son fixed everything." O: Patient slept 5.5 hours last night per staff. She denies S/I and H/I. She denies auditory and visual hallucinations. Depression is 0/10 and anxiety is 0/10. This creative writer and psychiatrist spoke with [place] [employer] and several staff at the [facility] and they stated that they do not have anything preventing patient from going back to her house. Patient is scheduled to discharge tomorrow back to her home, [address] [place] [address]. Chair Car Attendant's portion of discharge has been completed and placed in patient's chart. [facility] will follow patient's LRO. A: Patient is cooperative, improved, fair insight, fair judgment. P: Follow care plan, coordinate with out-patient providers. Addendum: 04/08/17 at 2053 by [facility] 9[facility]30am. [facility], [place] [address].
--- NOTE | 2017-04-08 21:39 | PCM.PNPSY ---
Subjective Date of Service Apr 08, 2017 Subjective The patient reports that she is doing well. She has no side effects and no lower extremity edema. She reports no return of fleas or aphids. She reports that her son, Musa, has been working on cleaning up the house and has removed 5 dumpster loads. There is still no placement and the patient is requesting to return home. She denies side effects. Sleep: "real good" 5.5+ hours Appetite: "okay, plenty" Suicidal and homicidal ideation: denies Auditory hallucinations: denies Visual hallucinations: denies Other Psychotic Symptoms: as above Anxiety: 0/10 Depression: 0/10 Mental Status Exam Vital Signs Vital Signs Date Time Temp Pulse Resp B/P Pulse Ox O2 Delivery O2 Flow Rate FiO2 04/08/17 13:34 36.7 62 16 163/74 Appearance: Neat/well groomed Attitude: Pleasant, Cooperative Behavior: No unusual behavior Affect: Well Modulated/Appropriate Mood: Euthymic Thought Process/Associations: Logical/Sequential, Goal Directed Speech Production: Normal Speech Rate: Normal Speech Articulation: Normal Thought Content: Perseveration Danger to Self/Suicidal Ideati: None Danger to Others: None Hallucinations: Auditory (Denies), Visual (Denies) Consciousness: Alert Orientation: Person, Place, Date, Situation Memory: Grossly Intact Estimate Intellectual Function: Average Basis for IQ estimate: Awareness current events Attention/Concentration & Cogn: Impaired Insight: Limited Judgement: Limited Result Diagram: 04/03/17 1000 04/03/17 1000 Mental Health Plan The patient is a 71-year-old white female, who has been treated for bipolar disorder and psychosis for several decades by her primary care physician. She has been medication noncompliant and has not been taking any medication for several months. For the six weeks prior to admission, she had been experiencing poor sleep, and family and friends were noticing increasing distractibility and a decreased ability to take care of herself. When police arrived, they noted her home was in severe disarray and that it could no longer be inhabited. On admission, the patient was noted to be delusional, labile and tangential in her speech. The patient was focused on discharge planning. The patient has been responding to her current antipsychotic, aripiprazole with improved organization and decreased paranoia. She continues to deny the presence of aphids/fleas, but is requesting prophylactic antibiotics to prevent recurrence. The counselor is currently working on helping the patient with housing but as yet none has been found. According to [facility] and [place], there is nothing preventing patient from returning home. [place] AXIS I Psychosis unspecified vs. Schizoaffective disorder, bipolar type AXIS II Defer. AXIS III 1. Congestive heart failure. 2. Peripheral neuropathy. 3. Lower extremity edema. 4. History of respiratory failure with intubation May 2014. AXIS IV Unknown. AXIS V 45 Medications Abilify 30mg daily Citalopram 20mg daily Amoxicillin clavulanate 1 tablet twice a day completes on 04/02/2017 Atorvastatin 10 mg nightly Clotrimazole 1% cream Ferrous Gluconate 324mg po bid Furosemide 10 mg daily Gabapentin 400 mg 3 times a day Guaifenesin 600 mg every 12 hours Lisinopril 20 mg po daily Metoprolol 25 mg daily. Mupirocin nasal 3 times a day Nystatin topical twice a day Potassium chloride 20meq po daily Potassium chloride 20 mEq daily Sodium chloride nasal spray Triamcinolone topical twice daily Vitamin B12 injection monthly Fluticasone 1 spray twice a day as needed Ibuprofen 600 mg 3 times a day as needed Ondansetron 4 mg every 6 hours as needed for nausea Treatments 1. The patient is admitted to the inpatient unit and will be provided a safe and secure environment. 2. The patient is denying current active suicidality and is not in need of a one-to-one at this time. He is agreeing to notify us should he have any acute suicidal or homicidal thoughts. 3. The patient is encouraged to participate with group and milieu activities. 4. The patient will be seen by the treatment team on a daily basis to assess symptoms, side effects and response to treatment. 5. Continue current medications. 6. Appreciate internal medicine consult and management. Discussed with internal medicine regarding alternative antihypertensive and will continue on furosemide 10 mg, medical is signing off. 7. Patient may return home as no prohibition to her return per above. 8. Anticipated discharge tomorrow unless there is some impediment Tuan Barragan MD Apr 08, 2017 21:39
--- NOTE | 2017-04-09 05:38 | NUR ---
Nursing note: night clerk auditor Patient noted to be awake at start of shift. Patient retired to bed and appears to be sleeping until 0230, then awake to bathroom and up in her room. Patient was able to return to sleep after 0330, then awake early this am at 0530. Remains with fragmented sleep.
[2017-04-09] MEDS: MeTOProlol XL 25 mg ER24 Tablet PO SCH (08:09)
[2017-04-09] MEDS: guaiFENesin 600 mg ER12 Tablet PO SCH (08:09)
[2017-04-09] MEDS: Potassium Chloride 20 mEq SR Tablet PO SCH (08:09)
[2017-04-09] MEDS: Nystatin 100,000 Unit/Gm 15 Gm Powder TOPICAL SCH (08:30)
[2017-04-09] MEDS: Triamcinolone 0.1% 30 Gm Cream TOPICAL SCH (08:30)
[2017-04-09] MEDS: Mupirocin 2% 22 Gm Ointment NASAL SCH (08:30)
[2017-04-09 12:16] VITALS: BP 133/57; PULSE 62; RESP 16
[2017-04-09] MEDS ORDERED: FERR325T20 PO (12:25)
[2017-04-09] MEDS ORDERED: GABA400C PO (12:25)
[2017-04-09] MEDS ORDERED: METO25TA99 PO (12:25)
[2017-04-09] MEDS ORDERED: POTA20TA16 PO (12:25)
[2017-04-09] MEDS ORDERED: CITA20TA PO (12:25)
[2017-04-09] MEDS ORDERED: ARIP15TA2 PO (12:25)
[2017-04-09] MEDS ORDERED: LISI-567 PO (12:25)
[2017-04-09] MEDS ORDERED: ATOR10TA66 PO (12:25)
--- NOTE | 2017-04-09 12:29 | PCM.DIMED ---
Discharge Instructions Date of Service Apr 09, 2017 Dates of Hospitalization March 02, 2017 at 10:36 Discharge Diagnosis Discharge Diagnosis AXIS I Psychosis unspecified vs. Schizoaffective disorder, bipolar type AXIS II Defer. AXIS III 1. Congestive heart failure. 2. Peripheral neuropathy. 3. Lower extremity edema. 4. History of respiratory failure with intubation May 2014. AXIS IV Unknown. AXIS V 45 Medication Instructions Additional med instructions I Strongly encouraged patient to follow up with outpatient care: 1-Recommended patient takes medication as prescribed and not alter this unless under the direct care of a provider. 2-Recommend client refrain from recreational drugs and alcohol while taking psychiatric medications. Diet Discharge Diet: No restrictions Activity Discharge Activity: No restrictions Call your provider Call your provider for: Fever or Chills Patient Instructions Patient Instructions Patient to follow up with [facility] at [place] [id number] [birth year]09/[birth year]29 a.m. for counseling and medication management. Jose Davies MD Apr 09, 2017 12:29
--- NOTE | 2017-04-09 13:44 | DIS ---
[address] [address] DISCHARGE SUMMARY PATIENT: TOM DUENAS : 1945 MR#: [id number] ADMIT: 03/02/2017 JOB ID: [id number] DIS: IDENTIFICATION: Patient: Client is a 71-year-old white female with a history of what seems to be schizoaffective disorder. She lives with her son on a property in [place]. REASON FOR ADMISSION: For six weeks prior to admission client had poor sleep, increased distractibility, and a decreased ability to take care of herself. When she was admitted she was delusional, labile, and tangential in thought processing. HOSPITAL COURSE: Client was admitted to our unit and was provided with a high degree of safety through the structure and active adult engagement she received here. We had her participate in one-to-one unit and group activities focused on improving reality-based thinking, coping skills, and ability to attend to activities of daily living. Client had a slow but steady improvement in all of the above over her stay here. She was stabilized on psychiatric medications Abilify at 30 mg per day and Celexa at 20 mg per day. Towards the past two weeks of her stay she was very active in unit, one-to-one, and group activities. Her sleep has been stabilized and her thought process showed good thought organization and mood stability. Her insight, judgment, and reality testing have all returned to baseline. MENTAL STATUS EXAMINATION: Client neatly dressed, calm, pleasant. Spoke in a clear and articulate manner. Mood was euthymic. Affect congruent. Normal intensity. Thought process: The client able to relate a coherent history. She is able to appreciate simple and complex abstractions. No signs of psychosis. Thought content: Significant for future planning, how to take care of her needs. Client alert and oriented to person, place, and date. Insight and judgment appropriate. Impulse control highly contained. Reality testing intact. Competence to handle current stressors is appropriate. DISCHARGE DIAGNOSIS: [place] I: Psychosis unspecified versus schizoaffective disorder. [place] II: None. [place] III: 1. History of congestive heart failure. 2. Peripheral neuropathy. 3. Lower extremity edema. 4. Respiratory failure with intubation May 2014. [place] IV: Unknown. [place] V: Current Global Assessment of Functioning equal to 45. DISCHARGE MEDICATIONS: Recommend the patient being discharged on Abilify 15 mg daily as a maintenance dose, Celexa 20 mg daily. Client to continue on her regular general medicine medications. ACTIVITY AND DIET: No restrictions. Recommend client not change her psychiatric medications unless under the supervision of a physician. Recommend she refrain from recreational drugs and alcohol while taking psychiatric medications. CONDITION ON DISCHARGE: Good. PROGNOSIS: Good. CC: [facility]
--- NOTE | 2017-04-09 14:33 | NUR ---
DISCHARGE Patient discharged at 1420, staff escorted her out to yellow cab which will take here home. Patient denies pain, nausea, and shortness of breath. Medications reviewed, new Rx called into pharmacy, care note provided for medications, and patient verbalized understanding. Follow up appointment at [facility] made for patient and she is made aware. Personal belongings returned, and appropriate paperwork returned to patient.
== END 2017-04-09 14:20 | disposition home or self-care (01) | DRG 885 ==
LOC: SED 14:41 → MHC 03-02 10:36
PROVIDERS: ADMIT Psychiatry & Neurology Psychiatry; ATTEND Psychiatry & Neurology Psychiatry
DX: F29 Unspecified psychosis not due to a substance or known physiological condition (principal); E78.5 Hyperlipidemia, unspecified; I10 Essential (primary) hypertension; Z72.0 Tobacco use; F22 Delusional disorders; I50.9 Heart failure, unspecified; H66.92 Otitis media, unspecified, left ear; J01.90 Acute sinusitis, unspecified; B35.1 Tinea unguium; R13.10 Dysphagia, unspecified; F25.9 Schizoaffective disorder, unspecified; G62.9 Polyneuropathy, unspecified

== ENCOUNTER 2017-04-13 15:47 | Emergency (ER) | payer MEDICARE, MEDICAID ==
[~2017-04-13 15:47] MED LIST changes: +ARIP15TA2 PO; -ARIP30TA PO; +ATOR10TA66 PO; -BENZ100C8 PO; -CEPH-512 PO; -CEPH500C PO; +CITA20TA PO; -CITA20TA11 PO; -CLOT15CR66 TD; -DOXY100T2 PO; -ERYT1OIN7 BOTH_EYES; -FAMO20TA4 PO; -FERR324T5 PO; +FERR325T20 PO; -FURO-128 PO; -GABA-502 PO; +GABA400C PO; -HYDR-3797 PO; -HYDR-4003 PO; +LISI-567 PO; -MUPI22OI2 NASAL; -NYST15PO3 TRANSDERM; -OXYC1TAB24 PO; +POTA20TA16 PO; -POTA20TA7 PO; -ZOLP5TAB6 PO
[2017-04-13 15:53] VITALS: BP 168/85; PULSE 73; RESP 20; O2SAT 97
--- NOTE | 2017-04-13 18:00 | ED.REPORT ---
HPI-General Illness Date of Service Apr 13, 2017 ED Provider: Kevin Edge DO Pt is a 71 year old female with a history of possible schizoaffective disorder, hyperlipidemia, and HTN who presents to the ED via police after being found living in her condemned home. The pt is unable to sufficiently care for herself. The pt is cooperative and states she would like a room on the 3rd floor , however she reports that she had her water turned back on today and the city wants to use her house as a care home house. The pt was admitted to [facility] (03/02/17) for delusion, labile, and tangential thought processing and was discharged (04/09). Nursing Notes Stated Complaint: FAILURE TO THRIVE Chief Complaint: General Complaint Nursing Notes Reviewed: Yes Allergies: Coded Allergies: nicotine (Verified Allergy, Intermediate, Rash,Itching,SOB, 04/14/17) Sulfa (Sulfonamide Antibiotics) (Verified Allergy, Unknown, 04/14/17) codeine (Verified Allergy, Unknown, 04/14/17) TAKES VICODIN AT HOME Scheduled Aripiprazole (Abilify) 15 Mg Tablet 15 MG PO HS Atorvastatin Calcium (Atorvastatin Calcium) 10 Mg Tablet 10 MG PO HS Citalopram Hydrobromide (Celexa) 20 Mg Tablet 20 MG PO DAILY Ferrous Gluconate (Ferrous Gluconate) 324 Mg Tablet 324 MG PO BID Gabapentin (Neurontin) 400 Mg Capsule 400 MG PO TID Lisinopril (Lisinopril) 20 Mg Tablet 20 MG PO DAILY Metoprolol Succinate ER (Metoprolol Succinate ER) 25 Mg Tab.er.24h 25 MG PO DAILY Potassium Chloride (Potassium Chloride) 20 Meq Tab.er.prt 20 MEQ PO DAILY General Time Seen by MD: 17:59 Chief Complaint Other (Living in condemned home) Hx Obtained From: Police Arrived By: Police Sudden in Onset?: No Onset Occurred: Onset unknown Symptom Duration: Duration unknown Severity: Current: No pain currently Severity: Maximum: No pain Recent Healthcare: Recent doctor visit, Recent hospitalization Similar Sx Previous: No Past Medical History Past Medical History Bipolar Type II Congestive Heart Failure - mixed, often accompanied by elevated Troponin. Chronic lower extremity edema Respiratory failure requiring intubation May 2014. Fibrocystic breast changes Recurrent ear infections chronic hip pain Sciatica chronic microcytic anemia hx of acute kidney injury H/O Scarlet fever Anxiety Peripheral neuropathy ho Formication Possible Schizoaffective disorder Reports: Hyperlipidemia, Hypertension Past Surgical History D&C Bladder surgery Reports: Hysterectomy, Tonsillectomy Reports: Tubal ligation Family History Reviewed family history. No relevant findings. Smoking History Current Some Day Smoker Social History Alcohol Use: 1-3 per week Drug Use: Denies drug use Other Social History: Frequent ED visitor, Lives alone, Local resident Ambulatory Status Cane Review of Systems Full Review of Systems Respiratory: Denies: Non-productive cough, Shortness of breath Neurologic: Reports: Shaking Psychiatric: Denies: Homicidal ideation, Suicidal ideation Complete sys rev & neg: except as marked. Physical Exam Vital Signs Vital Signs Date Time Temp Pulse Resp B/P Pulse Ox O2 Delivery O2 Flow Rate FiO2 04/14/17 11:22 89 16 151/88 95 Room Air 04/14/17 00:34 36.3 76 16 148/80 99 Room Air 04/13/17 15:53 36.9 73 20 168/85 97 Room Air Initial VS: Reviewed Head / Eyes: Atraumatic, Normocephalic, PERRL ENT: Mucous membranes moist, Conjunctiva normal, No scleral icterus Neck: Supple, Full range of motion Respiratory: Breath sounds normal, Clear to auscultation, No respiratory distress Cardiovascular: Regular rate & rhythm, Heart sounds normal, Intact distal pulses Abdomen / GI: Soft, Non-tender Extremities: Vascular intact, Neuro intact Skin: Warm, Dry, No cyanosis Neurologic: Alert, Oriented, Nonfocal Psychiatric: Mood/affect normal, Behavior normal General/Constitutional: Awake, Alert, Cooperative Behavior: Positive: Anxious Tremulous Psychiatric: Not suicidal, Not homicidal Interpretation & Diagnostics Lab Results Interpretation Result Diagram: 04/13/17183804/13/17 183 Test 04/13/17 18:39 White Blood Count 7.5th/mm3 (3.8-10.1) Red Blood Count 4.78mil/mm3 (3.90-5.20) Hemoglobin 14.9g/dL (12.0-15.6) Hematocrit 44.6% (35.0-46.0) Mean Corpuscular Volume 93.3fL (81-100) Mean Corpuscular Hemoglobin 31.2pg (27.0-35.0) Mean Corpuscular Hemoglobin Concent 33.4% (32.0-37.0) Red Cell Distribution Width 12.4% (12.3-15.4) Platelet Count 181bil/L (150-400) Neutrophils (%) (Auto) 64.0% (40-74) Lymphocytes (%) (Auto) 21.4% (14-46) Monocytes (%) (Auto) 7.6% (4-12) Eosinophils (%) (Auto) 6.5% (0-5) Basophils (%) (Auto) 0.4% (0-3) Sodium Level 141mEq/L (134-144) Potassium Level 4.6mEq/L (3.5-5.2) Chloride Level 102mEq/L (97-108) Carbon Dioxide Level 24mmol/L (18-29) Blood Urea Nitrogen 19mg/dL (8-27) Creatinine 0.67mg/dL (0.57-1.00) Estimat Glomerular Filtration Rate 124mL/min (>59) Glucose Level 115mg/dL (60-99) Calcium Level 10.3mg/dL (8.5-10.1) Total Bilirubin 0.6mg/dL (0.0-1.2) Aspartate Amino Transf (AST/SGOT) 33U/L (0-50) Alanine Aminotransferase (ALT/SGPT) 24U/L (0-32) Alkaline Phosphatase 52U/L (25-165) Total Protein 7.8g/dL (6.4-8.4) Albumin 4.3g/dL (3.4-5.0) Thyroid Stimulating Hormone (TSH) 1.640uIU/mL (0.450-4.500) Hold Singh Top Tube Received (Received) Alcohols < 10mg/dL (0-10) Lab values outside NL range: no clinical significance. Lab Results Interpretation: cbc NL cmp NL General Lab Results Interp 1: Labs reviewed and NL Re-Eval/Medical Decision Med Decision/Clinical Course This is a very difficult case. Jaci has been removed from her house by the police. Evidently the home is deemed uninhabitable. The problem is that she is lucid as we have ever seen her and she does not meet criteria for hospitalization/certification. She is not suicidal nor homicidal. This is the most lucid I have ever seen her. Our social media strategist evaluated her and she concurs. Neither of us feel comfortable discharging Jaci to the streets in the middle of the night. She is here electively so therefore a DCR will not be dispatched. She will stay in the emergency department in the social media strategist tomorrow will work on placement for her and talked to Adult Protective Services. In the meantime Tim will be given her nighttime meds. She is currently resting comfortably in open door room. 0700 Dr. Nino Hutton: This patient is care was turned over to me at change of shift. Her night was uneventful, sleeping most of the time. She got up twice to the bathroom and was pleasant and conversant. Her care is now being turned over change of shift to Dr. Nicolas Naqvi. Addendum by Dr Naqvi: This is a patient with a chronic mental illness, was brought for reasons above, and is turned over to me at change of shift. From a psychiatric standpoint she is doing the best that I had seen her a number recent visits. He still has somewhat limited insight, but she does not appear gravely disabled floridly psychotic as she has in the past. [facility] [employer] reevaluation was performed, they have been able to set up for the patient to stay at [facility]. This seems reasonable. I have given her morning Abilify and Celexa. The patient is being discharged in improved condition. She does not meet criteria for imminent harm/ grave disability a the moment. Source of Hx: Old records Time of Eval: 00:12 Re-Evaluation/Progress Note: Pt rechecked. Resting comfortably. Happy to be here and wants to be admitted. No issues. Time of Eval: 10:26 Re-Evaluation/Progress Note: Jayde White, social media strategist, reports [facility] bed [facility] the pt. The pt can be discharged to go there. Consultation : Call Returned at: 19:36 Note: Jayde White is working with Crisis. Pt is willing. She does not feel comfortable discharing the pt to the streets, but she does not have a reason to admit her right now. Differential Diagnosis: Negative: Abdominal pain, Abrasion, Abscess, Acute coronary syndrome, Allergies, Diabetes mellitus, Neutropenia, Pneumonia Counseled Regarding: Diagnosis, Lab results, Need for follow-up, When/why to return to ED Discharge & Departure Shift Change Sign-Out Patient Care Transferred: Yes (To Dr. Hutton at end of shift) Discussed Complaint(s): Yes Laboratory Evaluation: Back, reviewed by me Input from Consult: [facility] [employer] for placement Response to Therapy: Improved Primary Impression: Schizoaffective disorder, bipolar type Discharge Condition All VS Reviewed: Yes Condition: Stable Referrals: [facility] (PCP) Scribe Attestation Portions of this note were transcribed by Maylin Crowe. I, Dr. Edge personally performed the history, physical exam and medical decision-making; I reviewed and confirmed the accuracy of the information in the transcribed note. Signed by: Laura Moore, 04/13/17 and 23:00. copies to: [facility] Kevin Edge DO Apr 13, 2017 18:00 Maylin Flores Apr 13, 2017 18:33 Nino Hutton MD Apr 14, 2017 07:10 Navarro Duran Apr 14, 2017 10:26 Nicolas Naqvi MD Apr 14, 2017 11:59
[2017-04-13 18:51] LABS: BASOPHILS % (AUTO) 0.4 % (0-3); EOSINOPHILS % (AUTO) 6.5 % (0-5); MONOCYTES % (AUTO) 7.6 % (4-12); Mean Corpuscular Hemoglobin 31.2 pg (27.0-35.0); Mean Corpuscular Volume 93.3 fL (81-100); Platelet Count 181 bil/L (150-400)
[2017-04-13] MEDS ORDERED: ARIPiprazole 10 mg Tablet PO ONE (19:35)
[2017-04-14 00:34] VITALS: BP 148/80; PULSE 76; RESP 16; O2SAT 99
[2017-04-14 11:22] VITALS: BP 151/88; PULSE 89; RESP 16; O2SAT 95
== END 2017-04-14 11:24 | disposition home or self-care (01) ==
LOC: SED 15:47
DX: F25.0 Schizoaffective disorder, bipolar type (principal); I11.0 Hypertensive heart disease with heart failure; I50.9 Heart failure, unspecified; F17.200 Nicotine dependence, unspecified, uncomplicated; F31.9 Bipolar disorder, unspecified; F41.9 Anxiety disorder, unspecified; E78.5 Hyperlipidemia, unspecified; Z88.2 Allergy status to sulfonamides; Z88.5 Allergy status to narcotic agent; Z88.8 Allergy status to other drugs, medicaments and biological substances
CPT/HCPCS: 36415; 80053; 81002; 82075; 82948; 84443; 85025; 99284; G0480

== ENCOUNTER 2017-04-14 14:05 | Emergency (ER) | payer MEDICARE, MEDICAID ==
[~2017-04-14] VITALS: Ht 162.6 cm; Wt 80.9 kg
[2017-04-14 14:08] VITALS: BP 183/76; PULSE 77; RESP 15; O2SAT 95
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
[2017-04-14 17:00] VITALS: BP 194/94; PULSE 72; RESP 22; O2SAT 98
--- NOTE | 2017-04-15 15:18 | NUR ---
T/c from [facility] Sweta Bain on the phone with tangled yarn worker from [facility] [place] [facility]. Concern that pt was taxied to the jail. Pt with no house or jail options during her ED stay 04/15. Given that the patient needed jail all options were provided during her ED stay, Jaci requested assistance getting to [place] to access [facility]. Pt did not present with acute medical or psychiatric needs. ROSA Marks
== END 2017-04-14 18:43 | disposition home or self-care (01) ==
LOC: SED 14:11
DX: M54.5 Low back pain (principal); R03.0 Elevated blood-pressure reading, without diagnosis of hypertension; R35.0 Frequency of micturition; I11.0 Hypertensive heart disease with heart failure; I50.9 Heart failure, unspecified; E78.5 Hyperlipidemia, unspecified; F41.9 Anxiety disorder, unspecified; F31.81 Bipolar II disorder; Z88.2 Allergy status to sulfonamides; Z88.5 Allergy status to narcotic agent; Z88.8 Allergy status to other drugs, medicaments and biological substances